=== PATIENT | female | born 1940 | race Caucasian/White ===

== ENCOUNTER 2019-06-28 10:46 | Outpatient (CLI) | payer MEDICARE, MEDICAID, SELFPAY ==
--- NOTE | 2019-06-28 11:09 | XRR_ITS ---
PROCEDURE INFORMATION: Exam: XR Cervical Spine, 3 Views Exam date and time: 06/28/2019 11:30 AM Age: 78 years old Clinical indication: Neck pain; Additional info: Chronic midline posterior neck pain TECHNIQUE: Imaging protocol: XR of the cervical spine, 3 views. Other technique: AP, lateral and AP open mouth and Fuchs odontoid views and a swimmer's lateral view of the cervical spine are submitted. COMPARISON: [facility] Cervical Spine 2-3 views 09/12/2018 11:16 AM FINDINGS: Vertebrae: Moderate right C3-C4 primary facet osteoarthritis. There is 4.8 mm anterolisthesis of C3 on C4 in the neutral position. Slight C4-C5 retrolisthesis. C4-C5, C5-6 and C6-7 degenerative disc disease with moderate spondylosis. Right C4-C5, C5-C6 and C6-C7 uncovertebral hypertrophy. Dental: Edentulous maxilla and mandible. Soft tissues: Normal. XR/XR cervical spine 3V* [id number] IMPRESSION: 1. Degenerative changes as above. 2. No acute cervical spinal bony abnormality identified.
== END 2019-06-28 10:47 | disposition home or self-care (01) ==
LOC: RAD 10:52
PROVIDERS: Family Provider Family Medicine; PCP Family Medicine; Visit Provider Family Medicine
DX: M47.892 Other spondylosis, cervical region (principal); M54.2 Cervicalgia; G89.29 Other chronic pain
CPT/HCPCS: 72040

== ENCOUNTER 2020-01-09 10:59 | Outpatient (CLI) | payer MEDICARE, MEDICAID, SELFPAY ==
--- NOTE | 2020-01-09 11:15 | XR_ITS ---
WS: [id number] LEFT HAND: 3 VIEW(S) TECHNIQUE: PA, oblique and lateral. HISTORY: LEFT HAND PAIN COMPARISON: None available. Severe interphalangeal joint space narrowing involving the proximal and distal joints. Hypertrophic b one formation and soft tissue inflammatory changes at the IP joints. Erosive and productive changes a t the IP joints. Severe narrowing and partial subluxation at the first carpometacarpal joint. No meta carpal head erosions. XR/XR hand LT min 3V* [id number] IMPRESSION: 1. Severe interphalangeal joint space narrowing with hypertrophic bone formati on. Consider erosive arthritis, advanced osteoarthritis and psoriasis. 2. Advanced osteoarthritis at the first carpometacarpal joint.
--- NOTE | 2020-01-09 11:16 | XR_ITS ---
WS: [id number] RIGHT FOOT: 3 VIEW(S) TECHNIQUE: AP, oblique and lateral. HISTORY: RIGHT FOOT PAIN COMPARISON: None available. No acute fracture or dislocation. Normal tarsal/metatarsal alignment. Mild widening between the second and third phalanges. No erosions . No soft tissue abnormality or bone destruction. XR/XR foot RT min 3V* [id number] IMPRESSION: No significant degenerative disease or arthritis.
== END 2020-01-09 11:00 | disposition home or self-care (01) ==
LOC: RADWPI 11:04
PROVIDERS: Family Provider Family Medicine; PCP Family Medicine; Visit Provider Registered Nurse
DX: M79.671 Pain in right foot (principal); M19.042 Primary osteoarthritis, left hand
CPT/HCPCS: 73130; 73630

== ENCOUNTER 2020-06-13 17:30 | Emergency (ER) | payer MEDICARE, MEDICAID, SELFPAY ==
[2020-06-13 17:38] VITALS: BP 177/76; PULSE 66; RESP 18; TEMP 36.4; O2SAT 97; BMI 26.2
--- NOTE | 2020-06-13 17:54 | XRR_ITS ---
PROCEDURE INFORMATION: Exam: XR Chest, 1 View Exam date and time: 06/13/2020 5:57 PM Age: 79 years old Clinical indication: Dyspnea; Additional info: Reduced breath sounds TECHNIQUE: Imaging protocol: XR of the chest Views: 1 view. COMPARISON: [facility] Chest 2 views 07/30/2018 11:26 AM FINDINGS: Lungs: Moderate emphysema. No focal consolidation. Pleural spaces: Unremarkable. No pleural effusion. No pneumothorax. Heart/Mediastinum: Unremarkable. No cardiomegaly. Vasculature: Mild atherosclerosis. Bones/joints: Unremarkable. XR/XR chest 1V portable [id number] IMPRESSION: 1. No acute pulmonary disease. 2. No significant change from prior.
--- NOTE | 2020-06-13 17:54 | CTR_ITS ---
PROCEDURE INFORMATION: Exam: CT Head Without Contrast Exam date and time: 06/13/2020 6:02 PM Age: 79 years old Clinical indication: Headache not specified; Patient HX: C/O BUITRAGO and neck pain worsening x 1 month; Additional info: Headache. H/o CVA TECHNIQUE: Imaging protocol: Computed tomography of the head without contrast. Radiation optimization: All CT scans at this facility use at least one of these dose optimization techniques: automated exposure control; mA and/or kV adjustment per patient size (includes targeted exams where dose is matched to clinical indication); or iterative reconstruction. COMPARISON: CT head wo con* [id number] 02/15/2014 1:08 PM RADIATION DOSE METRICS: Total DLP (mGy-cm): 750.25 FINDINGS: Brain: There is mild cerebral atrophy. There is mild diffuse heterogeneity of the white matter attenuation, consistent with chronic white matter ischemic changes. No intracranial hemorrhage. No focal intracranial mass. No midline shift of brain. No acute brain ischemia apparent. Singh matter and white matter interfaces are preserved. Low-attenuation periventricular white matter changes have progressed to a mild degree since comparison on 02/15/2014. Cerebral ventricles: No ventriculomegaly. Bones/joints: Unremarkable. No acute fracture. Paranasal sinuses: Visualized sinuses are unremarkable. No fluid levels. Mastoid air cells: Visualized mastoid air cells are well aerated. Orbital cavity: Bilateral lens replacements. Orbits are symmetric. Soft tissues: Unremarkable. CT/CT head wo con* [id number] IMPRESSION: 1. Negative for acute intracranial abnormality. 2. Age related senescent findings. Radiation Dose CTDIVOL = (mGy): DLP = 750.25 (mGy-cm)
--- NOTE | 2020-06-13 17:56 | ECG_ITS ---
[facility] Test Date: 2020-06-13 Pat Name: Migdalia Serrano Department: Room: Gender: Female Mold Cleaner: : 1940 Requested By: Frandy Ortiz Order Number: [id number] Jey MD: Skip Clarke M.D. Measurements Intervals [place] Rate: 64 P: 69 WI: 194 QRS: -53 QRSD: 128 T: 26 QT: 416 QTc: 429 Interpretive Statements SINUS RHYTHM RIGHT BUNDLE BRANCH BLOCK [120+ ms QRS DURATION, UPRIGHT V1, 40+ ms S IN I/aVL/V4/V5/V6] LEFT ANTERIOR FASCICULAR BLOCK [QRS AXIS <= -45, QR IN I, RS IN II] No previous ECG available for comparison Electronically Signed On 06-13-2020 19:27:11 SENIOR FINANCIAL ACCOUNTANT by Skip Clarke M.D. [id number]
--- NOTE | 2020-06-13 17:57 | CTR_ITS ---
PROCEDURE INFORMATION: Exam: CT Cervical Spine Without Contrast Exam date and time: 06/13/2020 6:02 PM Age: 79 years old Clinical indication: Patient HX: C/O BUITRAGO and neck pain worsening x 1 month TECHNIQUE: Imaging protocol: Computed tomography images of the cervical spine without contrast. Radiation optimization: All CT scans at this facility use at least one of these dose optimization techniques: automated exposure control; mA and/or kV adjustment per patient size (includes targeted exams where dose is matched to clinical indication); or iterative reconstruction. COMPARISON: CR XR cervical spine 3V* [id number] 06/28/2019 11:16 AM RADIATION DOSE METRICS: Total DLP (mGy-cm): 321.76 FINDINGS: Vertebrae: No fractures. Unremarkable cervical spine alignment.The cervical spine demonstrates moderate degenerative changes at multiple levels. Substantial multilevel disc disease noted. Vertebral endplate sclerosis and osteophytic spurring. Slight C3-C4 anterolisthesis of 2 mm secondary to facet joint arthritis. Soft tissues: Unremarkable. Vasculature: Small volume bilateral calcified atherosclerotic plaque formation of the carotid artery bulbs. Lungs: Moderate emphysema. CT/CT cervical spin wo con* [id number] IMPRESSION: Negative for acute cervical spine fracture. Radiation Dose CTDIVOL = (mGy): DLP = 321.76 (mGy-cm)
--- NOTE | 2020-06-13 18:04 | ED_ITS ---
HPI - Headache General: Chief Complaint: Headache Stated Complaint: high bp, headaches on back of head Time Seen by Provider: 06/13/20 17:47 History of Present Illness: HPI Narrative: The patient is a 79-year-old female with history of CVA and chronic back pain who comes to the ER complaining of a headache on and off for the past 2 weeks which is worse today. She says it is causing her blood pressure to be elevated and she took clonidine this morning with no improvement of her pressure. She is worried because she had a stroke with her blood pressure in the 170 systolic sometime ago and has right eye blindness from that. She takes losartan for blood pressure and clonidine as needed. She took her losartan this morning. Yesterday she had a procedure done at the chiropractor that was basically brazing the skin on her neck which is also bothering her. MD elicited complaint: headache Onset (ago): week(s) (2) Onset description: gradually Severity: moderate Quality & Timing: aching Exacerbating factors: other (Elevated blood pressure) Relieving factors: nothing Associated symptoms: Deny chest pain, confusion or rash Review of Systems General: Reports: 10 or more systems reviewed and unremarkable except in HPI and below Const: Denies: fatigue Eyes: Denies: change in vision, blurry vision or eye redness ENMT: Denies: throat pain, swelling of lips/tongue, ear or mastoid pain or nasal congestion Card: Denies: chest pain, palpitations, irregular heart rhythm, edema, dyspnea on exertion or orthopnea Resp: Denies: dyspnea, productive cough or non-productive cough GI: Denies: abdominal pain, diarrhea or GI cramping : Denies: flank pain, difficulty voiding, urinary frequency or urinary urgency Musc: Denies: neck pain, back pain, extremity pain, joint pain, joint redness, limited range of motion or muscle weakness Skin/Breast: Denies: rash, pruritus, erythema, skin pain or skin tenderness Neuro: Reports: headache(s); Denies: numbness in extremities, weakness in extremities, sensory changes, difficulty walking, dizziness, confusion or Slurred speech present Psych: Denies: anxiety or depression Endo: Denies: polyuria All/Imm: Denies: urticaria, throat swelling or tongue swelling PFSH ED PFSH: Medical History (Updated 06/13/20 @ 22:39 by Frandy Ortiz MD) CVA (cerebral vascular accident) Depression High cholesterol Hypertension Family History Other CAD (coronary artery disease) Cancer Clotting disorder Diabetes Hypertension Stroke Denies family history of Dementia Hyperlipidemia Psychiatric illness Chronic kidney disease (CKD) Suicide Anesthesia complication Bleeding disorder Family history of premature coronary artery disease Lung disease Social History Smoking and tobacco status: never smoked Alcohol intake: never Lives independently: Yes Household members: none Marital status: Legally Physical Exam Const: COMMON NORMALS: no acute distress, average body habitus, patient oriented x3, no limitations, healthy appearing, alert and well nourished GENERAL APPEARANCE: cooperative, comfortable, well kempt and well developed ORIENTATION/CONSCIOUSNESS: Yes awake, Yes oriented to person, Yes oriented to place and Yes oriented to time HENMT: COMMON NORMALS: normocephalic, external ears normal and Normal external nose present HEAD & SCALP: normal to inspection and normocephalic NOSE: Normal external nose present EXTERNAL EAR: Yes external ears normal MOUTH: Normal oral and palatal mucosa present THROAT: posterior oropharynx normal Eye: COMMON NORMALS: Equal, round and reactive pupils present and EOMs intact bilaterally GENERAL EYE: appearance normal, both eyes and all related structures PUPIL: Yes Equal, round and reactive pupils present Neck/C-Spine: COMMON NORMALS: full ROM, no lymphadenopathy, no meningeal signs and no JVD GENERAL: Yes normal visual inspection Lymph: LYMPHATIC: no lymphadenopathy noted Chest: COMMONS NORMALS: normal inspection of the chest and normal palpation of entire chest wall Resp: COMMON NORMALS: normal respiratory effort, No retractions, No use of accessory muscles, clear to auscultation bilaterally and percussion normal EFFORT & INSPECTION: Yes able to speak in complete sentences AUSCULTATION: clear to auscultation bilaterally PERCUSSION: percussion normal Cardio: COMMON NORMALS: no JVD, regular rate, regular rhythm, S1 normal heart sound present, S2 normal heart sound present and Peripheral pulses 2+ throughout RATE: regular rate RHYTHM: regular rhythm HEART SOUNDS: S1 normal heart sound present and S2 normal heart sound present PERIPHERAL PULSES: Peripheral pulses 2+ throughout GI: COMMON NORMALS: Normal to inspection, nondistended, normoactive bowel s ounds present, Soft to palpation, non-tender and no masses INSPECTION: Yes normal to inspection PALPATION: Yes Soft to palpation : COMMON NORMALS: Yes no CVA tenderness BLADDER/KIDNEY EXAM: Yes no CVA tenderness Back/Pelvis: COMMON NORMALS: no CVA tenderness, thoracic and lumbar spine normal to inspection, no thoracic nor lumbar tenderness and thoraco-lumbar ROM normal Extremity: COMMON NORMALS: normal to inspection, full ROM, capillary refill normal, no joint enlargement and no pedal edema GENERAL: Yes normal exam except as noted Neuro: COMMON NORMALS: patient oriented x3, CN's II-XII intact bilaterally, moves all extremities, no focal motor deficits, no sensory deficits noted and gait normal SENSORIUM/ORIENTATION: Yes alert, Yes oriented to person, Yes oriented to place and Yes oriented to time MENINGEAL SIGNS: Yes no meningeal signs Psych: COMMON NORMALS: mental status grossly normal, Normal thought process pr esent, cooperative, normal affect and speech normal APPEARANCE: Yes well kempt ATTITUDE: Yes calm SPEECH: Yes normal speech THOUGHT PROCESS: Normal thought process present Skin: COMMON NORMALS: no rashes or lesions noted NARRATIVE SKIN EXAM: Slight erythema to the skin of the cervical spine where she had a procedure done at her chiropractors yesterday basically abrazing the skin with a piece of wood. GENERAL SKIN EXAM: no rashes or lesions noted Course Vital Signs: Vital signs: Vital Signs Temperature 97.6 F 06/13/20 17:38 Pulse Rate 58 L 06/13/20 22:00 Respiratory Rate 15 06/13/20 22:00 Blood Pressure 156/59 06/13/20 22:00 Pulse Oximetry 96 06/13/20 22:00 MDM - Headache MDM Narrative: Medical decision making narrative: The patient takes only losartan for her blood pressure and clonidine as needed. This is clearly not enough medication for her. Her heart rate is relatively low so I started with hydralazine which gave her flushing a known side effect. I also gave her some clonidine and amlodipine. This lowered her blood pressure with good effect and resolved her headache. Recommended taking the amlodipine daily and checking her blood pressures at home and following up with her primary care physician Monday. Return to the ER with worsening symptoms, return of headache, or any other worrisome symptoms. Lab Data: Labs: Lab Results 06/13/20 06/13/20 06/13/20 Range/Units 18:00 18:00 18:00 WBC 5.3 (4.0-10.0) 10^3/ uL RBC 3.77 L (4.1-5.3) 10^6/u L Hgb 11.4 L (11.5-15.3) g/dL Hct 35.3 L (37.0-47.0) % MCV 93.6 (81-99) fL MCH 30.2 (28.0-34.0) pg MCHC 32.3 (30.0-36.0) g/dL RDW 14.3 (12.1-15.1) % Plt Count 168 (130-400) 10^3/c mm MPV 10.7 H (7.4-10.4) fL Neut % (Auto) 56.3 % Lymph % (Auto) 33.3 % [place] % (Auto) 7.0 % Eos % (Auto) 2.1 % Baso % (Auto) 1.1 % Neut # (Auto) 3.00 (1.8-7.7) 10^3/u L Lymph # (Auto) 1.8 (0.8-4.8) 10^3/u L [place] # (Auto) 0.4 (0.2-0.9) 10^3/u L Eos # (Auto) 0.1 (0.0-0.8) 10^3/u L Baso # (Auto) 0.1 (0.0-0.1) 10^3/u L Nucleated RBC % (a uto) 0 % Nucleated RBCs # 0.0 /100WBC Sodium 138 (136-145) mmol/L Potassium 4.0 (3.5-5.1) mmol/L Chloride 103 (98-107) mmol/L Carbon Dioxide 27 (22-29) mmol/L Anion Gap 12.0 (5-19) BUN 24 H (8-23) mg/dL Creatinine 0.9 (0.5-0.9) mg/dL GFR Calculation Not Reportable Glucose 109 (65-115) mg/dL Calculated Osmolal ity 291 (285-295) mOsm/k g Calcium 9.7 (8.5-10.5) mg/dL Total Bilirubin 0.2 (0.15-1.2) mg/dL AST 16 (0-32) U/L ALT 11 (0-33) U/L Alkaline Phosphata se 45 (35-105) IU/L Troponin T Baselin e 11 H (0-10) ng/L Troponin T 120 Min dilia (0-10) ng/L Delta Troponin T (0-10) ABS# NT-Pro-B Natriuret Pep (0-450) pg/mL Total Protein 6.5 L (6.6-8.7) g/dL Albumin 4.5 (3.5-5.2) g/dL Globulin 2.0 (1.3-4.6) g/dL Urine Color (Yellow) Urine Appearance (CLEAR) Urine pH (5-7) Ur Specific Gravit y (1.005-1.030) Urine Protein (Negative) Urine Glucose (UA) (Normal) Urine Ketones (Negative) Urine Blood (Negative) Urine Nitrate (Negative) Urine Bilirubin (Negative) Urine Urobilinogen (Negative) mg/dL Ur Leukocyte Yajaira ase (Negative) 06/13/20 06/13/20 06/13/20 Range/Units 18:00 18:00 20:10 WBC (4.0-10.0) 10^3/ uL RBC (4.1-5.3) 10^6/u L Hgb (11.5-15.3) g/dL Hct (37.0-47.0) % MCV (81-99) fL MCH (28.0-34.0) pg MCHC (30.0-36.0) g/dL RDW (12.1-15.1) % Plt Count (130-400) 10^3/c mm MPV (7.4-10.4) fL Neut % (Auto) % Lymph % (Auto) % [place] % (Auto) % Eos % (Auto) % Baso % (Auto) % Neut # (Auto) (1.8-7.7) 10^3/u L Lymph # (Auto) (0.8-4.8) 10^3/u L [place] # (Auto) (0.2-0.9) 10^3/u L Eos # (Auto) (0.0-0.8) 10^3/u L Baso # (Auto) (0.0-0.1) 10^3/u L Nucleated RBC % (a uto) % Nucleated RBCs # /100WBC Sodium (136-145) mmol/L Potassium (3.5-5.1) mmol/L Chloride (98-107) mmol/L Carbon Dioxide (22-29) mmol/L Anion Gap (5-19) BUN (8-23) mg/dL Creatinine (0.5-0.9) mg/dL GFR Calculation Glucose (65-115) mg/dL Calculated Osmolal ity (285-295) mOsm/k g Calcium (8.5-10.5) mg/dL Total Bilirubin (0.15-1.2) mg/dL AST (0-32) U/L ALT (0-33) U/L Alkaline Phosphata se (35-105) IU/L Troponin T Baselin e (0-10) ng/L Troponin T 120 Min dilia 9.90 (0-10) ng/L Delta Troponin T -1.10 L (0-10) ABS# NT-Pro-B Natriuret Pep 546 H (0-450) pg/mL Total Protein (6.6-8.7) g/dL Albumin (3.5-5.2) g/dL Globulin (1.3-4.6) g/dL Urine Color Yellow (Yellow) Urine Appearance Clear (CLEAR) Urine pH 5 (5-7) Ur Specific Gravit y 1.020 (1.005-1.030) Urine Protein Neg (Negative) Urine Glucose (UA) Norm (Normal) Urine Ketones Negative (Negative) Urine Blood Neg (Negative) Urine Nitrate Negative (Negative) Urine Bilirubin Neg (Negative) Urine Urobilinogen Norm (Negative) mg/dL Ur Leukocyte Yajaira ase Negative (Negative) Discharge Plan Discharge Patient Disposition: Home Clinical Impression: Headache, Hypertension, uncontrolled Condition: Stable Prescriptions: New amlodipine 10 mg tablet 10 mg PO DAILY Qty: 20 RF: 0 No Action estradiol 1 mg tablet 1 mg PO DAILY RF: 0 losartan 100 mg tablet 100 mg PO DAILY RF: 0 sertraline [Zoloft] 100 mg tablet 100 mg PO DAILY RF: 0 simvastatin 5 mg tablet 5 mg PO DAILY RF: 0 levothyroxine 75 mcg capsule 75 mcg PO DAILY RF: 0 montelukast [Singulair] 10 mg tablet 10 mg PO DAILY RF: 0 aspirin 81 mg tablet,delayed release (DR/EC) 81 mg PO DAILY RF: 0 ferrous sulfate 250 mg (50 mg iron) tablet extended release 250 mg PO DAILY RF: 0 Discharge Orders: Discharge ED (Routine); Ordered 06/13/20 Ordered By: Frandy Ortiz Referrals: Ching Varma DO [Primary Care Provider] - Discharge Diet: Advance as tolerated Discharge Activity: Resume usual activity Patient Instructions: Acute Headache (ED), Hypertensive Crisis (ED), Hyp ertension (ED), Opioid Safety Activity Restrictions/Additional Instructions: You have elevated blood pressure which is likely the cause of your headaches. We have given you a couple blood pressure medicines to reduce your pressure and your headache has resolved. Please take the amlodipine daily and follow-up with your primary care doctor Monday to discuss further and possibly add another medicine. Please check your blood pressure multiple times a day and write them down. Bring that blood pressure diary to your doctor. Return to the ER with worsening symptoms or headaches or any other worrisome symptoms. Coding Level of Care Code ED Neonatal Specialist for José Manuel Fwfelipe Exam Comprehensive
[2020-06-13] MEDS: hyDRALAzine 20 mg/mL INJ 1 mL 10 MG IVP (18:06)
[2020-06-13 18:22] VITALS: BP 178/88; PULSE 68; RESP 18; O2SAT 98
[2020-06-13 18:24] LABS: Add Urine Microscopic? NO
[2020-06-13 18:35] LABS: Basophils # 0.1 10^3/uL (0.0-0.1); Basophils % 1.1 %; Eosinophils # 0.1 10^3/uL (0.0-0.8); Eosinophils % 2.1 %; Hematocrit 35.3 % (37.0-47.0); Hemoglobin 11.4 g/dL (11.5-15.3); Lymphocytes # 1.8 10^3/uL (0.8-4.8); Lymphocytes % 33.3 %; Mean Corpuscular HGB Conc 32.3 g/dL (30.0-36.0); Mean Corpuscular Hemoglobin 30.2 pg (28.0-34.0); Mean Corpuscular Volume 93.6 fL (81-99); Mean Platelet Volume 10.7 fL (7.4-10.4); Monocytes # 0.4 10^3/uL (0.2-0.9); Neutrophils % 56.3 %; Nucleated Red Blood Cells % 0 %; Platelet Count 168 10^3/cmm (130-400); Red Blood Count 3.77 10^6/uL (4.1-5.3); Red Cell Distribution Width 14.3 % (12.1-15.1); White Blood Count 5.3 10^3/uL (4.0-10.0)
[2020-06-13 18:37] LABS: Bilirubin Urine Neg (Negative); Blood Urine Neg (Negative); Glucose Urine UA Norm (Normal); Ketones Urine Negative (Negative); Leukocyte Esterase Urine Negative (Negative); Nitrate Urine Negative (Negative); Protein Urine Neg (Negative); Urine Appearance Clear (CLEAR); Urine Color Yellow (Yellow); Urobilinogen Urine Norm (Negative); pH Urine 5 (5-7)
[2020-06-13] MEDS: acetaminophen 325 mg Tablet 650 MG PO (18:46)
[2020-06-13 18:55] LABS: Alanine Aminotransferase 11 U/L (0-33); Albumin Level 4.5 g/dL (3.5-5.2); Alkaline Phosphatase 45 IU/L (35-105); Aspartate Amino Transferase 16 U/L (0-32); Blood Urea Nitrogen 24 mg/dL (8-23); Calcium 9.7 mg/dL (8.5-10.5); Carbon Dioxide 27 mmol/L (22-29); Chloride 103 mmol/L (98-107); Creatinine Clr Calc Pharmacy 50.0626; Glucose 109 mg/dL (65-115); Osmolality Calculated 291 mOsm/kg (285-295); Sodium 138 mmol/L (136-145); Total Bilirubin 0.2 mg/dL (0.15-1.2); Total Protein 6.5 g/dL (6.6-8.7); Troponin(5th) Baseline 11 ng/L (0-10)
[2020-06-13 20:03] VITALS: BP 164/64; PULSE 60; RESP 13; O2SAT 97
[2020-06-13] MEDS: amlodipine 10 mg Tablet PO (20:35)
[2020-06-13 20:39] VITALS: BP 184/75
[2020-06-13] MEDS: cloNIDine 0.1 mg Tablet PO (20:39)
[2020-06-13] MEDS: labetalol 5 mg/mL SDV 20mL 10 MG IVP (21:54)
[2020-06-13] MEDS: morphine 4 mg/mL SDV 1 mL 2 MG IVP (21:55)
[2020-06-13 22:00] VITALS: BP 156/59; PULSE 58; RESP 15; O2SAT 96
[2020-06-13 22:11] LABS: NT Pro B Type Natriuretic Pept 546 pg/mL (0-450)
[2020-06-13 22:40] VITALS: BP 163/61; PULSE 57; RESP 13; O2SAT 95
== END 2020-06-13 22:46 | disposition home or self-care (01) ==
PROVIDERS: Emergency Provider Family Medicine; PCP Family Medicine
DX: R51.9 Headache, unspecified (principal); I10 Essential (primary) hypertension; Z79.82 Long term (current) use of aspirin; Z86.73 Personal history of transient ischemic attack (TIA), and cerebral infarction without residual deficits
CPT/HCPCS: 36415; 70450; 71045; 72125; 80053; 81003; 83880; 84484; 85025; 93005; 96374; 96375; 99284; J0360; J2270; J3490

== ENCOUNTER 2020-06-18 12:44 | Observation (INO) | payer MEDICARE, MEDICAID, SELFPAY ==
[2020-06-18] VITALS (59 sets, daily range): BP systolic 112–174; BP diastolic 57–84; PULSE 57–97; RESP 7–24; TEMP 36.4; O2SAT 92–100; BMI 20.5
--- NOTE | 2020-06-18 13:00 | CT_ITS ---
WS: [id number] CT HEAD NONCONTRAST HISTORY: asphasia TECHNIQUE: Contiguous axial imaging performed through the brain in 2.5 mm imaging. Bone and soft tiss ue windows. Sagittal and coronal reformats reviewed. All CT scans at [facility] use at ast one of these dose optimization techniques: automated exposure control; mA and/or kV adjustment pe r patient size (includes targeted exams where dose is matched to clinical indication); or iterative r econstruction. DLP: 752.81 mGy.cm COMPARISON: 06/13/2020 No acute intracranial hemorrhage, midline shift or mass effect. Mild atrophy and mild chronic microvascular ischemic disease. Ventricles: Normal size with no hydrocephalus. Paranasal sinuses: As visualized are clear. Mastoid air cells: Well pneumatized. Calvarium and scalp: Skull is intact with no soft tissue edema or swelling. CT/CT head wo con* [id number] IMPRESSION: 1. No acute intracranial hemorrhage or edema. 2. Mild atrophy and mild chronic microvascular ischemic disease.
--- NOTE | 2020-06-18 13:00 | CT_ITS ---
WS: [id number] CT ANGIOGRAM CEREBRAL AND CAROTID ARTERIES HISTORY: stroke, aphasia TECHNIQUE: CT angiogram is performed of the carotid and cerebral arteries. During arterial injection imaging is obtained from the skull vertex to the aortic arch in 1.25 mm imaging. Coronal and sagittal reformats are submitted. Additional multi planar reformats of the carotid and cerebral arteries are submitted, MIP imaging also reviewed. NASCET criteria utilized. All CT scans at [facility] use at least one of these dose optimization techniques: automated exposure control; mA and/or kV ad justment per patient size (includes targeted exams where dose is matched to clinical indication); or iterative reconstruction. CONTRAST: Omnipaque 350; 95 mL IV. DLP: 1560.29 mGy.cm COMPARISON: 06/18/2020 Carotid Angiogram: Right carotid: Common carotid artery: Arises normally from the innominate artery. No significant plaque or stenosis. Internal carotid artery: No plaque or stenosis. External carotid artery: Patent. Left carotid: Common carotid artery: Arises normally from the aorta. No significant plaque or stenosis. Internal carotid artery: No plaque or stenosis. External carotid artery: Patent. Right vertebral artery: Unremarkable. Left vertebral artery: Small amount calcium at the origin of the LEFT vertebral artery. Mild stenosis at the origin. Subclavian arteries: No stenosis or significant abnormality. Upper thorax: Normal. Thyroid gland: Normal. Osseous structures: Moderate spondylitic changes in the mid cervical spine. No bone destruction. CEREBRAL ANGIOGRAM: Intracranial vertebral arteries: Normal with no significant atherosclerosis. Basilar artery: No significant stenosis or occlusion. No aneurysm. Intracranial Internal carotid arteries: Moderate calcified plaque through the cavernous and supraclin oid carotid arteries. No high-grade stenosis. Middle cerebral arteries: Normal. Anterior cerebral arteries and ACOM: Normal. Posterior cerebral arteries and PCOM's: Normal. Dural venous sinuses are normally enhancing. Mastoid air cells: Normal. Paranasal sinuses: Normal. Calvarium: Normal. CT/CT angio headneck* [id number] IMPRESSION: 1. No significant extracranial carotid artery stenosis. 2. Mild intracranial carotid artery plaque without stenosis. 3. No aneurysms or occlusions within the [place]. 4. Mild stenosis involving the origin of the LEFT vertebral artery.
--- NOTE | 2020-06-18 13:03 | XR_ITS ---
WS: [id number] PORTABLE CHEST HISTORY: stroke COMPARISON: 06/13/2020 Lungs are clear and well expanded. No pleural effusion or pneumothorax. Cardiac size: Normal. Mediastinum/Aorta: Normal mediastinum. No osseous abnormality seen. XR/XR chest 1V portable [id number] IMPRESSION: Unremarkable portable chest.
--- NOTE | 2020-06-18 13:03 | ECG_ITS ---
[facility] Test Date: 2020-06-18 Pat Name: Migdalia Serrano Department: Room: Gender: Female Assistant Director Of Security: : 1940 Requested By: Mia Frazier Order Number: [id number] Reading MD: ALLEGRA STEWART Measurements Intervals [place] Rate: 73 P: 81 VA: 198 QRS: -59 QRSD: 125 T: 52 QT: 405 QTc: 448 Interpretive Statements SINUS RHYTHM INDETERMINATE AXIS RIGHT BUNDLE BRANCH BLOCK [120+ ms QRS DURATION, UPRIGHT V1, 40+ ms S IN I/aVL/V4/V5/V6] Compared to ECG 06/13/2020 18:17:00 Indeterminate axis now present Left anterior fascicular block no longer present Electronically Signed On 06-18-2020 18:16:58 MINIATURE SET CONSTRUCTOR by ALLEGRA STEWART [id number]
[2020-06-18 13:17] LABS: Basophils # 0.1 10^3/uL (0.0-0.1); Basophils % 1.1 %; Eosinophils # 0.1 10^3/uL (0.0-0.8); Eosinophils % 2.1 %; Hematocrit 38.2 % (37.0-47.0); Hemoglobin 12.5 g/dL (11.5-15.3); Lymphocytes # 1.6 10^3/uL (0.8-4.8); Lymphocytes % 34.4 %; Mean Corpuscular HGB Conc 32.7 g/dL (30.0-36.0); Mean Corpuscular Hemoglobin 30.4 pg (28.0-34.0); Mean Corpuscular Volume 92.9 fL (81-99); Mean Platelet Volume 10.4 fL (7.4-10.4); Monocytes # 0.4 10^3/uL (0.2-0.9); Monocytes % 7.9 %; Neutrophils # 2.56 10^3/uL (1.8-7.7); Neutrophils % 54.3 %; Nucleated Red Blood Cells % 0 %; Platelet Count 168 10^3/cmm (130-400); Red Blood Count 4.11 10^6/uL (4.1-5.3); Red Cell Distribution Width 13.8 % (12.1-15.1); White Blood Count 4.7 10^3/uL (4.0-10.0)
[2020-06-18] MEDS: iohexol 350 mg/mL 100 mL Btl IV (13:23)
--- NOTE | 2020-06-18 13:31 | P.PNCC_ITS ---
Stroke Alert Activation ED Arrival Date: 06/18/20 Last Known Normal/at Baseline: 3-4 hours ago (Unknown) Other Last Known Well Infomation: I was called stat for stroke team by Dr. Grace. This 79-year-old woman presented with right homonymous hemianopsia and speaking word salad. She could not say her name, her birthdate and any attempt she made to answer questions consisted of disjointed words. This was observed by Dr. Grace and the triage nurse. She was sent stat to CT of the head and I came directly to the emergency department and examined her briefly as she was going into the scanner. I examined her more thoroughly upon completion of her CT while the techs readied themselves to do CT angiogram (since time of onset was not known). She was able to tell me her name and her birthdate, though it was somewhat effortful. She guesses the month is May. She complained repeatedly why cannot I remember . She told me that she does not normally have memory problems and spoke that in a full sentence. She has a right homonymous hemianopsia. She has full eye movements. She had no drift of the extended arms for count of 10 and was able to lift each of her feet in the air and hold them up for 10 seconds. She had no sign of neglect. She had no ataxia. Her CT scan of the head shows diffuse white matter changes unchanged compared with several days ago when she was seen here previously for hypertension and headache. CT angiogram shows no sign of intracranial occlusion pending the radiologist report. With the luxury of time I was able to review her emergency department documentation from 06/13/2020 when she complained of 2 weeks of headaches and elevated blood pressure. At that time she mentioned that she had a stroke? And has right eye blindness from that (I presume he means right homonymous hemianopsia). Her daughter called the ambulance and demanded that this patient be transferred to [place] by air VAC which was not possible. She is on aspirin 81 mg daily and simvastatin 5 mg daily. Diagnosis is TIA and headache out of control. The patient's daughter arrived at 1:40 or so and she had a chance to interview me. She reveals that the patient was normal at 8:00 this morning when she wrote a bunch of notes about her blood pressure and her medication. Someone called the house at 10 AM and Ms. Lozano was confused. . Daughter Arely says that Ms. Lozano has never had a problem with speech it was always confusion. . Mr. Guillermo says that she is still having problems with word searching. 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) Facial Palsy - 4: Normal Motor Arm Right - 5: No Drift Motor Arm Left - 5: No Drift Motor Leg Right - 6: No Drift Motor Leg Left - 6: No Drift Limb Ataxia - 7: Absent Sensory - 8: Normal Best Language - 9: Mild/Moderate Aphasia Dysarthia - 10: Normal Extinction And Inattention - 11: 0 Score: Total Score: 3 Critical Care Time Critical Care Time: 30 - 74 mins A&P Assessment and plan (1) TIA (transient ischemic attack): 79-year-old woman who had a 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 Her deficit is improving rapidly and she is able to communicate. There is no indication for TPA at this point. Plan discussed with the patient, her daughter and Dr. Grace. Very reasonable to add Plavix to her medication regimen. I would be permissive with her blood pressure since she had a TIA. Reasonable to check a sed rate because of new headache. Consider a small dose of beta-messi such as propranolol 10 mg twice daily for her headaches. Thanks for allowing me to participate in her care. 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
[2020-06-18 13:38] LABS: INR 1.01 (0.8-1.2)
[2020-06-18 13:39] LABS: Partial Thromboplastin Time 25.7 SECONDS (23.9-36.7)
[2020-06-18 13:42] LABS: Alanine Aminotransferase 16 U/L (0-33); Albumin Level 4.6 g/dL (3.5-5.2); Alkaline Phosphatase 45 IU/L (35-105); Anion Gap 14.2 (5-19); Aspartate Amino Transferase 18 U/L (0-32); Blood Urea Nitrogen 21 mg/dL (8-23); Calcium 9.6 mg/dL (8.5-10.5); Carbon Dioxide 25 mmol/L (22-29); Chloride 104 mmol/L (98-107); Globulin 2.9 g/dL (1.3-4.6); Glucose 115 mg/dL (65-115); Osmolality Calculated 292 mOsm/kg (285-295); Potassium 4.2 mmol/L (3.5-5.1); Sodium 139 mmol/L (136-145); Total Bilirubin 0.3 mg/dL (0.15-1.2); Total Protein 7.5 g/dL (6.6-8.7)
[2020-06-18 13:47] LABS: Add Urine Microscopic? NO
[2020-06-18 13:57] LABS: Bilirubin Urine Neg (Negative); Blood Urine Neg (Negative); Glucose Urine UA Norm (Normal); Ketones Urine Negative (Negative); Leukocyte Esterase Urine Negative (Negative); Nitrate Urine Negative (Negative); Protein Urine Neg (Negative); Specific Gravity, Urine 1.005 (1.005-1.030); Urine Appearance Clear (CLEAR); Urine Color Yellow (Yellow); Urobilinogen Urine Norm (Negative); pH Urine 7 (5-7)
[2020-06-18 14:07] LABS: Amphetamines Screen Urine Negative (Negative); Barbiturates Screen Urine Negative (Negative); Benzodiazepines Screen Urine Negative (Negative); Cocaine Screen Urine Negative (Negative); Opiate Screen Urine Negative (Negative); PCP Screen Urine Negative (Negative); THC Screen Urine Negative (Negative)
--- NOTE | 2020-06-18 14:28 | PC.NURSE ---
Daughter at bedside, both daughter and patient state that he head is hurting. rating a 6 out of 10. Nurse and doctor have been made aware.
[2020-06-18] MEDS: ondansetron 2 mg/ML SDV 2 mL 4 MG IVP (14:49)
[2020-06-18] MEDS: morphine 4 mg/mL SDV 1 mL IVP (14:49)
[2020-06-18] MEDS: acetaminophen 500 mg Tablet 1000 MG PO (15:52)
[2020-06-18] MEDS: clopidogrel 75 mg Tablet PO (15:53)
--- NOTE | 2020-06-18 17:05 | W.ED.NEUROSD ---
HPI - Neuro Symptoms/Deficit General: Chief Complaint: Neuro Symptoms/Deficit Stated Complaint: BUITRAGO/HTN Time Seen by Provider: 06/18/20 13:00 History of Present Illness: HPI Narrative: This patient is a 79 year old female presenting by EMS with trouble speaking. On my assessment she is awake, and clearly aware of her speech difficulties. I asked her name and she was able to say her first name - but then stopped and said a whole list of other names - which did not include her actual last night. I asked if she was here due to her trouble speaking and she said a garbble of words that did not make sense. Each question got the same response and she was clearly aware and frustrated by her inability to tell me what she wanted to say. initially I was not able to find out when her symptoms started or other history - but her daughter did come in and was able to tell us that she spoke to the patient on the phone at 8 this morning and she was fine - and then she got a call from someone who had been on the phone with the patient at 10:30 and they expressed concern about her speech and confusion. The daughter was also able to tell me that she has been having bad headaches and fluctuating blood pressure over the past two weeks - but had not had the speech issue before today. She also has had a prior stroke about 2 years ago which left her with right sided hemianopsia. The aptient was seen here 06/13 with high blood pressure and headache, and was evaluated and discharged. Her daughter then took her to [facility] where she had a CTA, MR and an ultrasound which were unremarkable per daughter. She was started back on amlodipine - which she had taken in the past - and clonidine PRN. Her BP had still been high and she had still been having headaches. Last Observed Normal: 08:00 Timing confirmed by: family member Location: speech History of same: No Severity: severe Relieving factors: none Exacerbating factors: none Context: other (unknown) Associated symptoms: Reports headache(s); Deny nausea, short of breath, syncope or vertigo Review of Systems General: Reports: ROS unobtainable due to medical condition Card: Denies: syncope GI: Denies: nausea Neuro: Reports: headache(s); Denies: vertigo [facility] ED PFSH: Medical History CVA (cerebral vascular accident) Depression High cholesterol Hypertension Family History Other CAD (coronary artery disease) Cancer Clotting disorder Diabetes Hypertension Stroke Denies family history of Dementia Hyperlipidemia Psychiatric illness Chronic kidney disease (CKD) Suicide Anesthesia complication Bleeding disorder Family history of premature coronary artery disease Lung disease Social History Smoking and tobacco status: never smoked Alcohol intake: never Lives independently: Yes Household members: none Marital status: Legally NIH stroke score NIHSS: Level Of Consciousness - 1a: 0 Level Of Consciousness Questions - 1b: Neither Correct Level Of Consciousness Commands - 1c: Both Correct Best Gaze - 2: Normal Visual Bentley - 3: Complete Hemianopia Facial Palsy - 4: Normal Motor Arm Right - 5: No Drift Motor Arm Left - 5: No Drift Motor Leg Right - 6: No Drift Motor Leg Left - 6: No Drift Limb Ataxia - 7: Absent Sensory - 8: Normal Best Language - 9: Severe Aphasia Dysarthia - 10: Normal Extinction And Inattention - 11: 0 Score: Total Score: 6 Physical Exam Const: COMMON NORMALS: alert EXAM LIMITATIONS: other limitations (aphasia) GENERAL APPEARANCE: cooperative, in distress and anxious NUTRITIONAL APPEARANCE: thin ORIENTATION/CONSCIOUSNESS: Yes awake OTHER: aphasia complicates orientation questions - she seems aware of the situation HENMT: HEAD & SCALP: normal to inspection FACE & SINUS: normal facial exam Eye: COMMON NORMALS: Equal, round and reactive pupils present GENERAL EYE: appearance normal, both eyes and all related structures VISUAL BENTLEY: Yes peripheral vision loss and Yes right visual field cut PUPIL: Yes Equal, round and reactive pupils present Neck/C-Spine: COMMON NORMALS: supple, no meningeal signs and no JVD Chest: COMMONS NORMALS: normal inspection of the chest Resp: COMMON NORMALS: normal respiratory effort, No use of accessory muscles and clear to auscultation bilaterally AUSCULTATION: clear to auscultation bilaterally Cardio: COMMON NORMALS: no JVD, regular rate, regular rhythm and No murmurs present (Cardio) RATE: regular rate RHYTHM: regular rhythm GI: COMMON NORMALS: Normal to inspection, nondistended, normoactive bowel sounds present, Soft to palpation and non-tender INSPECTION: Yes normal to inspection AUSCULTATION: Yes normoactive bowel sounds PALPATION: Yes Soft to palpation Back/Pelvis: COMMON NORMALS: thoracic and lumbar spine normal to inspection Extremity: COMMON NORMALS: normal to inspection Neuro: SENSORIUM/ORIENTATION: Yes alert MENINGEAL SIGNS: Yes no meningeal signs CRANIAL NERVES: Yes CN normal except as noted COORDINATION/BALANCE: [id number] test normal SPEECH: expressive aphasia MOTOR EXAM: 5/5 motor strength present throughout COORDINATION: [id number] test normal Psych: COMMON NORMALS: mental status grossly normal, cooperative and normal affect Skin: COMMON NORMALS: no rashes or lesions noted and turgor normal GENERAL SKIN EXAM: no rashes or lesions noted and turgor normal Course ED course: Patient was made a stroke alert and sent for CT and CTA - as I was not aware that she had recently had a CTA at [facility]. Those tests were normal other than some mild narrowing of the left vertebral artery and the mild intracranial plaque without stenosis in the carotid. Dr. Escalera saw the patient in the ED and when she saw her, the aphasia had resolved and the BP was normalizing. Her BP remained in the 130 - 150 range for most of the ED stay - and she continued to have a severe headache which did not really improve with meds. She had intermittent episodes of aphasia as well. I discussed the options for admission here, transfer to [facility] and an option that I did not recommend for outpatient management. I am concerned with the continued symptoms with out an obvious cause. Dr. Escalera did suggest adding plavix. Patient preferred to be admitted here - and DR. Adams accepted her to the first floor for close monitoring. He also asked that I order a Clonidine here for a BP in the 150's - which I did. Consultations: Consultation #1: Dr. Escalera Vital Signs: Vital signs: Vital Signs Temperature 97.6 F 06/18/20 12:46 Pulse Rate 64 06/18/20 16:30 Respiratory Rate 14 06/18/20 16:30 Blood Pressure 155/71 06/18/20 16:30 Pulse Oximetry 97 06/18/20 16:30 MDM - Neuro Symptoms/Deficit MDM Narrative: Medical decision making narrative: CVA, TIA, atypical seizure, complicated migraine, PRES. Stat CTs, neuro consult. Admit for further work up. Lab Data: Labs: Lab Results 06/18/20 06/18/20 06/18/20 Range/Units 13:04 13:04 13:04 WBC 4.7 (4.0-10.0) 10^3/ uL RBC 4.11 (4.1-5.3) 10^6/u L Hgb 12.5 (11.5-15.3) g/dL Hct 38.2 (37.0-47.0) % MCV 92.9 (81-99) fL MCH 30.4 (28.0-34.0) pg MCHC 32.7 (30.0-36.0) g/dL RDW 13.8 (12.1-15.1) % Plt Count 168 (130-400) 10^3/c mm MPV 10.4 (7.4-10.4) fL Neut % (Auto) 54.3 % Lymph % (Auto) 34.4 % [place] % (Auto) 7.9 % Eos % (Auto) 2.1 % Baso % (Auto) 1.1 % Neut # (Auto) 2.56 (1.8-7.7) 10^3/u L Lymph # (Auto) 1.6 (0.8-4.8) 10^3/u L [place] # (Auto) 0.4 (0.2-0.9) 10^3/u L Eos # (Auto) 0.1 (0.0-0.8) 10^3/u L Baso # (Auto) 0.1 (0.0-0.1) 10^3/u L Nucleated RBC % (a uto) 0 % Nucleated RBCs # 0.0 /100WBC PT 13.60 (12.1-14.9) SECO NDS INR 1.01 (0.8-1.2) APTT 25.7 (23.9-36.7) SECO NDS Sodium 139 (136-145) mmol/L Potassium 4.2 (3.5-5.1) mmol/L Chloride 104 (98-107) mmol/L Carbon Dioxide 25 (22-29) mmol/L Anion Gap 14.2 (5-19) BUN 21 (8-23) mg/dL Creatinine 1.0 H (0.5-0.9) mg/dL GFR Calculation Not Reportable Glucose 115 (65-115) mg/dL Calculated Osmolal ity 292 (285-295) mOsm/k g Calcium 9.6 (8.5-10.5) mg/dL Total Bilirubin 0.3 (0.15-1.2) mg/dL AST 18 (0-32) U/L ALT 16 (0-33) U/L Alkaline Phosphata se 45 (35-105) IU/L Total Protein 7.5 (6.6-8.7) g/dL Albumin 4.6 (3.5-5.2) g/dL Globulin 2.9 (1.3-4.6) g/dL Urine Color (Yellow) Urine Appearance (CLEAR) Urine pH (5-7) Ur Specific Gravit y (1.005-1.030) Urine Protein (Negative) Urine Glucose (UA) (Normal) Urine Ketones (Negative) Urine Blood (Negative) Urine Nitrate (Negative) Urine Bilirubin (Negative) Urine Urobilinogen (Negative) mg/dL Ur Leukocyte Yajaira ase (Negative) Urine Opiates Scre en (Negative) ng/mL Ur Barbiturates Sc reen (Negative) ng/mL Ur Phencyclidine S crn (Negative) ng/mL Ur Amphetamines Sc reen (Negative) ng/mL U Benzodiazepines Scrn (Negative) ng/mL Urine Cocaine Scre en (Negative) ng/mL U Marijuana (THC) Screen (Negative) ng/mL 06/18/20 06/18/20 Range/Units 13:35 13:35 WBC (4.0-10.0) 10^3/ uL RBC (4.1-5.3) 10^6/u L Hgb (11.5-15.3) g/dL Hct (37.0-47.0) % MCV (81-99) fL MCH (28.0-34.0) pg MCHC (30.0-36.0) g/dL RDW (12.1-15.1) % Plt Count (130-400) 10^3/c mm MPV (7.4-10.4) fL Neut % (Auto) % Lymph % (Auto) % [place] % (Auto) % Eos % (Auto) % Baso % (Auto) % Neut # (Auto) (1.8-7.7) 10^3/u L Lymph # (Auto) (0.8-4.8) 10^3/u L [place] # (Auto) (0.2-0.9) 10^3/u L Eos # (Auto) (0.0-0.8) 10^3/u L Baso # (Auto) (0.0-0.1) 10^3/u L Nucleated RBC % (a uto) % Nucleated RBCs # /100WBC PT (12.1-14.9) SECO NDS INR (0.8-1.2) APTT (23.9-36.7) SECO NDS Sodium (136-145) mmol/L Potassium (3.5-5.1) mmol/L Chloride (98-107) mmol/L Carbon Dioxide (22-29) mmol/L Anion Gap (5-19) BUN (8-23) mg/dL Creatinine (0.5-0.9) mg/dL GFR Calculation Glucose (65-115) mg/dL Calculated Osmolal ity (285-295) mOsm/k g Calcium (8.5-10.5) mg/dL Total Bilirubin (0.15-1.2) mg/dL AST (0-32) U/L ALT (0-33) U/L Alkaline Phosphata se (35-105) IU/L Total Protein (6.6-8.7) g/dL Albumin (3.5-5.2) g/dL Globulin (1.3-4.6) g/dL Urine Color Yellow (Yellow) Urine Appearance Clear (CLEAR) Urine pH 7 (5-7) Ur Specific Gravit y 1.005 (1.005-1.030) Urine Protein Neg (Negative) Urine Glucose (UA) Norm (Normal) Urine Ketones Negative (Negative) Urine Blood Neg (Negative) Urine Nitrate Negative (Negative) Urine Bilirubin Neg (Negative) Urine Urobilinogen Norm (Negative) mg/dL Ur Leukocyte Yajaira ase Negative (Negative) Urine Opiates Scre en Negative (Negative) ng/mL Ur Barbiturates Sc reen Negative (Negative) ng/mL Ur Phencyclidine S crn Negative (Negative) ng/mL Ur Amphetamines Sc reen Negative (Negative) ng/mL U Benzodiazepines Scrn Negative (Negative) ng/mL Urine Cocaine Scre en Negative (Negative) ng/mL U Marijuana (THC) Screen Negative (Negative) ng/mL Critical Care Time Critical Care Time: Critical Care Time: Yes Total Critical Care Time: 35 Attestation: I spent 35 minutes of critical care time exclusively on this patient. This was spent reviewing medical records, obtaining history from daughter and EMS, multiple reevaluations of the patient's mental status and blood pressure, medical therapy for TIA/stroke and hypertension. 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
[2020-06-18] MEDS: acetaminophen 325 mg Tablet 650 MG PO (19:29)
[2020-06-18] MEDS: cloNIDine 0.1 mg Tablet PO (21:21)
[2020-06-18] MEDS: enoxaparin 40 mg/0.4 mL Syringe SUBCUT (21:21)
[2020-06-18] MEDS: latanoprost 0.005% Op Soln 2.5 mL Btl 1 DROP EYE-BOTH (21:22)
[2020-06-18] MEDS: dorzolamide 2% Op Soln 10 mL Btl 1 DROP EYE-BOTH (21:22)
[2020-06-18] MEDS: ALPRAZolam 0.5 mg Tablet PO (22:55)
--- NOTE | 2020-06-18 23:03 | P.HP_ITS ---
Providers/Chief Complaint Admitting Physician: Ranjeet Adams MD Primary Care Provider: Ching Varma DO Chief Complaint: BUITRAGO/HTN History of Present Illness Migdalia Serrano is a 79 year old female with PMH of CVA, with rt homonymous hemianopsia about 2 year back HTN, presented with c/o speaking word salad as well as confusion.Stroke alert was called on arrival and patient was evaluated by .Per ER chart review upon arrival she was She could not say her name, her birthdate and any attempt she made to answer questions consisted of disjointed words. She was sent stat to CT of the head:CT scan of the head shows diffuse white matter changes unchanged compared with several days ago when she was seen here previously for hypertension and headache. CT angiogram shows no sign of intracranial occlusion. Post completion of the C.T patient was reexamined by Dr. Escalera at that time she was able to her name and though it was efforftful.She s persistently complaining of forgetfulness in the ER and was telling she never has memory issues. Last Observed Normal: 08:00: Not a candidate for Tpa. Upon further chart review it was found that she was in ER on 06/13/2020,at that time she was complaining of headache from the last 2 weeks as well as elevated blood pressure.At that time also the family was concerned of stroke and wanted the patient be transferred to [place] by air VAC which was not possible.As per patients daughter she had an extensive work up at [facility] which included CTA, MR and an ultrasound which were unremarkable per daughter.She was started back on amlodipine which she had taken in the past - and clonidine PRN. Her BP had still been high and she had still been having headaches. When I was present with the patient and the daughter, daughter provided some more details, She reveals that the patient was normal at 8:00 this morning when she wrote a bunch of notes about her blood pressure and her medication. Someone called the house at 10 AM and Ms. Serrano was confused. . Daughter Arely says that Ms. Serrano has never had a problem with speech it was always confusion. .At the time of my examination her speech was slow but she was not having any difficulty with word findings,she was very much alert ,awake and oriented. NIHSS : 3 She was diagnosed with TIA in the ER. Review of Systems Const: Denies: fever(s), chills or diaphoresis Card: Denies: palpitations, edema, swelling of feet/ankles, dyspnea on exertion, orthopnea or leg pain with exertion Resp: Denies: dyspnea, productive cough, wheezing or pain on inspiration GI: Denies: abdominal pain, nausea, vomiting, diarrhea or constipation : Denies: flank pain Musc: Denies: back pain, extremity pain or extremity swelling Medications/Allergies Home Medications Medication Instructions Recorded Confirmed Last Taken Type aspirin 81 mg tablet,delayed 81 mg PO DAILY@0800 02/10/20 06/18/20 06/18/20 History release estradiol 1 mg tablet 1 mg PO DAILY@0800 02/10/20 06/18/20 06/18/20 History ferrous sulfate 250 mg (50 mg 250 mg PO DAILY@0800 02/10/20 06/18/20 06/18/20 History iron) tablet,extended release levothyroxine 75 mcg capsule 75 mcg PO DAILY@0800 02/10/20 06/18/20 06/18/20 History losartan 100 mg tablet 100 mg PO DAILY@0800 02/10/20 06/18/20 06/18/20 History montelukast 10 mg tablet 10 mg PO DAILY PRN 02/10/20 06/18/20 Unknown History sertraline 100 mg tablet 100 mg PO DAILY@0800 02/10/20 06/18/20 06/18/20 History simvastatin 5 mg tablet 5 mg PO DAILY@0800 02/10/20 06/18/20 06/18/20 History Eye Vitamin and Minerals 1 tab PO DAILY@0800 06/18/20 06/18/20 06/18/20 History Vitamin C 1 tab PO DAILY@0800 06/18/20 06/18/20 06/18/20 History Vitamin D3 1 mg PO DAILY@0800 06/18/20 06/18/20 06/18/20 History alprazolam 0.5 mg PO DAILY@0800 06/18/20 06/18/20 06/17/20 History amlodipine 10 mg PO DAILY@0800 06/18/20 06/18/20 Unknown History clonidine HCl 0.1 mg PO TID@08,,06/18/20 06/18/2018/21 History dorzolamide See Rx Instructions .ROUTE .COMPLEX 06/18/20 06/18/20 06/18/20 History hydrochlorothiazide 25 mg PO DAILY@0800 06/18/20 06/18/20 Unknown History latanoprost See Rx Instructions .ROUTE .COMPLEX 06/18/20 06/18/20 06/18/20 History skdchiti-uyn-mjkce-vit K-lycop 1 tab PO DAILY@0800 06/18/20 06/18/20 06/18/20 History [One-A-Day Men's 50 Plus] potassium chloride 10 meq PO DAILY@0800 06/18/20 06/18/20 06/18/20 History Allergies Allergy/AdvReac Type Severity Reaction Status Date / Time venlafaxine [From Effexor] Allergy ALGY-Anaphy Verified 06/13/20 17:37 laxis PFSH Acute PFSH: Medical History CVA (cerebral vascular accident) Depression High cholesterol Hypertension Family History Other CAD (coronary artery disease) Cancer Clotting disorder Diabetes Hypertension Stroke Denies family history of Dementia Hyperlipidemia Psychiatric illness Chronic kidney disease (CKD) Suicide Anesthesia complication Bleeding disorder Family history of premature coronary artery disease Lung disease Social History Smoking and tobacco status: never smoked Alcohol intake: never Lives independently: Yes Household members: none Marital status: Legally Vitals/I&O/Wt Last Vital Signs Temp 97.5 F L 06/18/20 19:57 Pulse 61 06/18/20 20:00 Resp 14 06/18/20 19:57 BP 152/66 06/18/20 22:00 Pulse Ox 94 06/18/20 19:57 06/18/20 06/18/20 06/19/20 14:59 22:59 06:59 Intake Total 120 / 120 Balance 120 / 120 Weight last 48 hrs Weight 71.123 kg Weight 54.431 kg Physical Exam Narrative: EXAM NARRATIVE: Alert , awake and oriented HENMT: COMMON NORMALS: normocephalic and atraumatic HEAD & SCALP: normocephalic and atraumatic EXTERNAL EAR: Yes external ears normal Chest: CHEST: Yes Symmetrical chest wall rise Resp: COMMON NORMALS: normal respiratory effort, No retractions, No use of accessory muscles and clear to auscultation bilaterally EFFORT & INSPECTION: Yes symmetric chest movement AUSCULTATION: clear to auscultation bilaterally Cardio: COMMON NORMALS: regular rate, regular rhythm, S1 normal heart sound present, S2 normal heart sound present, No gallops present (Cardio), No murmurs present (Cardio), No rub (Cardio) and Peripheral pulses 2+ throughout RATE: regular rate RHYTHM: regular rhythm HEART SOUNDS: S1 normal heart sound present and S2 normal heart sound present PERIPHERAL PULSES: Peripheral pulses 2+ throughout GI: COMMON NORMALS: Normal to inspection, nondistended, normoactive bowel sounds present, Soft to palpation, non-tender, No hepatosplenomegaly present and no masses AUSCULTATION: Yes normoactive bowel sounds PALPATION: Yes Soft to palpation and Yes No hepatosplenomegaly present RECTAL EXAM: deferred Extremity: COMMON NORMALS: no clubbing, cyanosis or edema and no pedal edema Neuro: COMMON NORMALS: no focal motor deficits and no sensory deficits noted Data : 06/18/20 13:04 06/18/20 13:04 A&P Assessment and plan (1) TIA (transient ischemic attack): Aspirin 81 mg oral daily Plavix 75 mg oral daily Lipior 40 mg po daily Tele 2D Echo Neurochecks q2h Fall Precautions Permissive HTN for 24 Hs since last known well. Status: Acute (2) Headache: Continue Tylenol Dialudid Will add Propranolol ESR Status: Acute (3) Hypertension, uncontrolled: Status: Acute (4) CVA (cerebral vascular accident): H/o CVA, with rt homonymous hemianopsia about 2 year back. Status: Chronic Attestations Medical Necessity Statement*: Patient needs to be in hospital for the management of TIA, uncontrolled HTN, and severe headache.Anticipated LOS greater then 2 midnights. 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
[2020-06-19] VITALS (19 sets, daily range): BP systolic 136–160; BP diastolic 64–80; PULSE 56–80; RESP 8–25; TEMP 36.4–36.8; O2SAT 93–97
[2020-06-19 04:06] LABS: Basophils # 0.1 10^3/uL (0.0-0.1); Basophils % 0.9 %; Eosinophils % 0.7 %; Hematocrit 37.2 % (37.0-47.0); Hemoglobin 11.9 g/dL (11.5-15.3); Lymphocytes # 1.5 10^3/uL (0.8-4.8); Mean Corpuscular Hemoglobin 29.8 pg (28.0-34.0); Mean Corpuscular Volume 93.2 fL (81-99); Mean Platelet Volume 10.7 fL (7.4-10.4); Monocytes # 0.3 10^3/uL (0.2-0.9); Monocytes % 5.7 %; Neutrophils # 3.77 10^3/uL (1.8-7.7); Neutrophils % 66.5 %; Nucleated Red Blood Cells % 0 %; Platelet Count 175 10^3/cmm (130-400); Red Blood Count 3.99 10^6/uL (4.1-5.3); Red Cell Distribution Width 13.9 % (12.1-15.1); White Blood Count 5.7 10^3/uL (4.0-10.0)
[2020-06-19 04:26] LABS: INR 1.06 (0.8-1.2)
[2020-06-19 04:31] LABS: Alanine Aminotransferase 14 U/L (0-33); Albumin Level 4.1 g/dL (3.5-5.2); Alkaline Phosphatase 40 IU/L (35-105); Aspartate Amino Transferase 15 U/L (0-32); Blood Urea Nitrogen 19 mg/dL (8-23); Calcium 9.1 mg/dL (8.5-10.5); Carbon Dioxide 25 mmol/L (22-29); Chloride 102 mmol/L (98-107); Creatinine Clr Calc Pharmacy 56.9612; Globulin 2.5 g/dL (1.3-4.6); Glucose 98 mg/dL (65-115); Magnesium 2.2 mg/dL (1.7-2.3); Osmolality Calculated 286 mOsm/kg (285-295); Sodium 137 mmol/L (136-145); Thyroid Stimulating Hormone 4.34 uIU/mL (0.27-4.20); Total Bilirubin 0.3 mg/dL (0.15-1.2); Total Protein 6.6 g/dL (6.6-8.7)
[2020-06-19 04:33] LABS: NT Pro B Type Natriuretic Pept 248 pg/mL (0-450)
--- NOTE | 2020-06-19 05:49 | PC.NURSE ---
NURSE NOTE: SHIFT SUMMARY: PT ALERT AND ORIENTED X4; MOVES ALL EXTREMITIES AND FOLLOWS COMMANDS. NIHSS = 0. NO PERIODS OF CONFUSION NOTED. SPEECH CLEAR. DENIES PAIN. PT REQUESTED XANAX BE GIVEN AT HS INSTEAD OF IN MORNING. NOTIFIED DR. MOLINA OF THIS REQUEST AND RECEIVED OK TO ORDER XANAX @ HS. PT RESTED WITH EYES CLOSED MOST OF SHIFT. ALL VS AND ASSESSMENTS CHARTED. NO DISTRESS NOTED.
[2020-06-19] MEDS: amlodipine 10 mg Tablet PO (07:41)
[2020-06-19] MEDS: estradiol 1 mg Tablet PO (07:41)
[2020-06-19] MEDS: atorvastatin 40 mg Tablet PO (07:41)
[2020-06-19] MEDS: aspirin 81 mg EC Tablet PO (07:41)
[2020-06-19] MEDS: sertraline 100 mg Tablet PO (07:41)
[2020-06-19] MEDS: levothyroxine 75 mcg Tablet PO (07:41)
[2020-06-19] MEDS: clopidogrel 75 mg Tablet PO (07:43)
--- NOTE | 2020-06-19 08:27 | USCV_ITS ---
Migdalia Serrano Age: 79 Gender: F : 1940 Exam Date: 06/19/2020 16:09 Ordering Phys: Ranjeet Adams MD Technologist: Elizabeth Cyr [place]am [place] [facility] [place]: TIA BP: 158 / 77 HR: 54 Rhythm: Sinus Technical Quality: Adequate MEASUREMENTS (Male / Female) Normal Values 2D ECHO LV Diastolic Diameter PLAX 4.3 cm 4.2 - 5.9 / 3.9 - 5.3 cm LV Systolic Diameter PLAX 2.6 cm LV Chamber Size 3.5 cm IVS Diastolic Thickness 0.8 cm 0.6 - 1.0 / 0.6 - 0.9 cm IVS Systolic Thickness 1.1 cm LVPW Diastolic Thickness 1.2 cm 0.6 - 1.0 / 0.6 - 0.9 cm LVPW Systolic Thickness 1.7 cm RV Chamber Size 2.4 cm LVOT Diameter 2.1 cm LV Ejection Fraction 2D Teich 68.9 % LV Ejection Fraction MOD 2C 60.5 % LV Ejection Fraction 2C AL 61.3 % LA Diameter 3.6 cm LA Width 2.1 cm LA Height 3.4 cm RA Width 3.8 cm RA Height 3.3 cm Aorta at Sinotubular Diameter 2.9 cm M-MODE LV Diastolic Diameter MM 4.5 cm 4.2 - 5.9 / 3.9 - 5.3 cm LV Systolic Diameter MM 2.9 cm LV Ejection Fraction MM Teich 63.8 % IVS Diastolic Thickness MM 1.1 cm 0.6 - 1.0 / 0.6 - 0.9 cm IVS Systolic Thickness MM 1.2 cm LVPW Diastolic Thickness MM 1.1 cm 0.6 - 1.0 / 0.6 - 0.9 cm LVPW Systolic Thickness MM 1.5 cm RV Diastolic Diameter MM 1.6 cm Aortic Annulus Diameter 3.1 cm LA Ao Ratio MM 1.3 MV E Point Septal Separation 0.3 cm DOPPLER AV Peak Velocity 141.0 cm/s LVOT Peak Velocity 77.0 cm/s AV Area Cont Eq vti 2.0 cm squared AV Area Cont Eq pk 1.8 cm squared MV Area PHT 4.1 cm squared Mitral E to A Ratio 1.2 MV E' Velocity 52.5 cm/s Mitral E to MV E' Ratio 10.2 Mitral E to LV E' Lateral Ratio 11.0 Mitral E to LV E' Septal Ratio 9.6 TR Peak Velocity 222.7 cm/s TR Peak Gradient 19.8 mmHg TR Mean Velocity 152.4 cm/s TR Mean Gradient 11.3 mmHg TR Velocity Time Integral 66.6 cm TV Peak E Velocity 59.0 cm/s Right Atrial Pressure 3.0 mmHg Pulmonary Artery Systolic Pressu 22.8 mmHg PV Peak Velocity 64.0 cm/s RV Acceleration Time 0.2 s RV Ejection Time 0.4 s RV AcT/ET 0.4 FINDINGS Left Ventricle Normal left ventricular size, systolic function and wall thickness, with no regional wall motion abnormalities. Left ventricular ejection fraction is estimated at 64 %. Normal diastolic function. Right Ventricle Normal right ventricular size and systolic function. Right ventricular systolic pressure 31 mmHg. Right Atrium Normal right atrial size. Right atrial pressure estimated at 3 mmHg. Left Atrium Normal left atrial size. Mitral Valve Structurally normal mitral valve. No mitral valve stenosis. No mitral valve regurgitation. Aortic Valve Structurally normal trileaflet aortic valve. Mild aortic valve regurgitation. Tricuspid Valve Structurally normal tricuspid valve. Trace to mild tricuspid valve regurgitation. Pulmonic Valve Pulmonic valve not well visualized. Trace pulmonary valve regurgitation. Pericardium No pericardial effusion. Aorta Normal-sized aortic root and proximal ascending aorta. Normal- sized inferior vena cava with normal respiratory variation. CONCLUSIONS 1. Normal left ventricular size, systolic function and wall thickness, with no regional wall motion abnormalities. Left ventricular ejection fraction is estimated at 64 %. Normal diastolic function. 2. Normal right ventricular size and systolic function. 3. Mild aortic valve regurgitation. 4. Right atrial pressure estimated at 3 mmHg. 5. Pulmonary artery pressure estimated at 31 mmHg. 6. No evidence of cardioembolic source of stroke based on the study. Alyson Solorio MD (Electronically Signed) Final Date: 20 June 2020 14:18 S
[2020-06-19] MEDS: ondansetron 2 mg/ML SDV 2 mL 4 MG IVP (08:37)
[2020-06-19] MEDS: propranolol 20 mg Tablet 10 MG PO ×2 (09:35→18:23)
[2020-06-19] MEDS: cloNIDine 0.1 mg Tablet PO (11:39)
--- NOTE | 2020-06-19 12:59 | PC.NURSE ---
Called doctor if okay for the dgtr to come and visit her mother. noted that her grand daughter is at bedside. but she will be leaving for this afternoon. Received okay order from doctor.
--- NOTE | 2020-06-19 13:38 | PM.PN ---
Subjective Subjective: Interval history: Patient was seen and examined this morning.She is still complaining of headache, though it has some improved since yesterday. She participated in physical therapy and walked down the [place]anna.Had no difficulty with speech, has no difficulty with word finding. No element of confusion. currently alert oriented times 3. Her vitals and labs have been reviewed. Vitals/I&O/Wt Last Vital Signs Temp 98.0 F 06/19/20 08:00 Pulse 70 06/19/20 08:00 Resp 17 06/19/20 08:00 BP 159/76 06/19/20 12:00 Pulse Ox 97 06/19/20 08:00 06/18/20 06/19/20 06/19/20 22:59 06:59 14:59 Intake Total 120 / 120 120 / 120 Balance 120 / 120 120 / 120 Weight last 48 hrs Weight 71.123 kg Weight 54.431 kg Physical Exam Narrative: EXAM NARRATIVE: Alert , awake and oriented Const: COMMON NORMALS: alert ORIENTATION/CONSCIOUSNESS: Yes oriented to person, Yes oriented to place and Yes oriented to time HENMT: COMMON NORMALS: normocephalic, atraumatic and external ears normal HEAD & SCALP: normocephalic and atraumatic EXTERNAL EAR: Yes external ears normal Chest: CHEST: Yes Symmetrical chest wall rise Resp: COMMON NORMALS: normal respiratory effort, No retractions, No use of accessory muscles and clear to auscultation bilaterally EFFORT & INSPECTION: Yes symmetric chest movement AUSCULTATION: clear to auscultation bilaterally Cardio: COMMON NORMALS: regular rate, regular rhythm, S1 normal heart sound present, S2 normal heart sound present, No gallops present (Cardio), No murmurs present (Cardio), No rub (Cardio) and Peripheral pulses 2+ throughout RATE: regular rate RHYTHM: regular rhythm HEART SOUNDS: S1 normal heart sound present and S2 normal heart sound present PERIPHERAL PULSES: Peripheral pulses 2+ throughout GI: COMMON NORMALS: Normal to inspection, nondistended, normoactive bowel sounds present, Soft to palpation, non-tender, No hepatosplenomegaly present and no masses AUSCULTATION: Yes normoactive bowel sounds PALPATION: Yes Soft to palpation and Yes No hepatosplenomegaly present RECTAL EXAM: deferred Extremity: COMMON NORMALS: no clubbing, cyanosis or edema and no pedal edema Neuro: COMMON NORMALS: no focal motor deficits and no sensory deficits noted SENSORIUM/ORIENTATION: Yes alert, Yes oriented to person, Yes oriented to place and Yes oriented to time GAIT: Yes Normal gait present MOTOR EXAM: 5/5 motor strength present throughout, Pronator motor function not present, no tremor noted, no asterixis, Motor fasciculations not present, Normal motor muscle tone present throughout and Motor abnormalities not present Data : 06/19/20 03:14 06/19/20 03:14 A&P Assessment and plan (1) TIA (transient ischemic attack): Aspirin 81 mg oral daily Plavix 75 mg oral daily Lipior 40 mg po daily Tele 2D Echo Neurochecks q2h Fall Precautions Permissive HTN for 24 Hs since last known well. 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 Status: Chronic (5) Hypothyroidism: Continue levothyroxine 75 mcg p.o. daily before breakfast. Status: Acute Attestations Medical Necessity Statement*: She needs to be in hospital for management of TIA and the need for physical therapy. Coding Level of Care Code Acute Automatic Bow Maker Machine Tender for José Manuel Tavarez Diagnoses TIA (transient ischemic attack) G45.9 Headache R51.9 Hypertension, uncontrolled I10 CVA (cerebral vascular accident) I63.9 Hypothyroidism E03.9
--- NOTE | 2020-06-19 14:06 | PC.CHAP ---
Pastoral Care Encounter/Spiritual Assessment Type of Contact [] Declined market development executive visit [] Patient/Family/Request visit [] Outpatient visit [] Follow-up visit [] Physician referral [] Code/Alert [xx] Routine visit [] Staff referral [] Actively dying [] Patient sleeping [] Family support [] [] Out of room [] Palliative care [] [] Receiving care in room [] Pre-surgical visit [] Trauma [] Long length of stay [] ICU visit [] Other: Relational/Emotional Strength [xx] Patient feels connected with others/family/visitors/staff [] Distress [] Loneliness/isolation [] Abandonment Spirituality of Patient [xx] Person of Radha [xx] Attends Amish of their Radha [xx] Believes in Prayer [xx] Reads Bible or Orthodoxy materials [] There are Spiritual issues to be addressed Airconditioning Drafting Officer Interventions [xx] Prayer [xx] Active listening [xx] Non-anxious presence [] Spiritual/emotional support [] Crisis/trauma care [] Spiritual counseling [] Bereavement support [] Provided bereavement packet [] Provided Bible/devotional materials [] Provided toy/stuffed animal, coloring book to patient or family member [] Provided Communion [] Anointing/[place] [] Salvation [xx] Completed spiritual assessment [] Other: Impact on Illness or Injury [] Angry [] Fearful [] Anxious [] Often cries [] Exhaustion [] Unable to work [] Unable to attend episcopalian [] Unable to walk/stand [] Unable to read [] Unable to drive [] Unable to eat/drink [] Unable to sleep [] Unable to be with family [] Patient intubated [] Other: Summary Patient stated she is a strong believer in Rolando Zheng. dHer children and rastafari are praying for her to get well. Time spent with patient 12 minutes
[2020-06-19] MEDS: enoxaparin 40 mg/0.4 mL Syringe SUBCUT (18:23)
--- NOTE | 2020-06-19 20:21 | PC.NURSE ---
pt orthostatic vital signs: lying- blood pressure of 145/67 pulse of 67 bpm sitting- blood pressure of 144/74 pulse of 64 bpm standing- blood pressure of 141/70 pulse of 69 bpm
[2020-06-19] MEDS: latanoprost 0.005% Op Soln 2.5 mL Btl 1 DROP EYE-BOTH (20:48)
[2020-06-19] MEDS: ALPRAZolam 0.5 mg Tablet PO (20:49)
[2020-06-19] MEDS: dorzolamide 2% Op Soln 10 mL Btl 1 DROP EYE-BOTH (20:49)
--- NOTE | 2020-06-19 21:27 | PC.NURSE ---
NURSE NOTE: ASSUMED CARE OF PATIENT AT 1900 TODAY. PT ALERT AND ORIENTED X4. MOVES ALL EXTREMITIES AND FOLLOWS COMMANDS. NIHSS = 0. CURRENTLY RESTING WITH EYES CLOSED. RESP EVEN AND NON LABORED. 02 PER RA. DENIES PAIN OR NAUSEA AT THIS TIME. ALL VS AND ASSESSMENTS CHARTED. NO DISTRESS NOTED AT THIS TIME.
[2020-06-20] VITALS (10 sets, daily range): BP systolic 135–162; BP diastolic 62–80; PULSE 57–70; RESP 14–22; TEMP 36.6–37; O2SAT 94–97
[2020-06-20 05:39] LABS: Basophils # 0.1 10^3/uL (0.0-0.1); Basophils % 1.1 %; Eosinophils # 0.1 10^3/uL (0.0-0.8); Eosinophils % 1.7 %; Hematocrit 39.2 % (37.0-47.0); Hemoglobin 12.9 g/dL (11.5-15.3); Lymphocytes # 1.8 10^3/uL (0.8-4.8); Lymphocytes % 38.6 %; Mean Corpuscular HGB Conc 32.9 g/dL (30.0-36.0); Mean Corpuscular Hemoglobin 30.3 pg (28.0-34.0); Mean Platelet Volume 10.8 fL (7.4-10.4); Monocytes # 0.3 10^3/uL (0.2-0.9); Monocytes % 6.8 %; Neutrophils # 2.46 10^3/uL (1.8-7.7); Neutrophils % 51.8 %; Nucleated Red Blood Cells % 0 %; Platelet Count 198 10^3/cmm (130-400); Red Blood Count 4.26 10^6/uL (4.1-5.3); Red Cell Distribution Width 13.7 % (12.1-15.1); White Blood Count 4.7 10^3/uL (4.0-10.0)
[2020-06-20 06:11] LABS: Alanine Aminotransferase 13 U/L (0-33); Albumin Level 4.4 g/dL (3.5-5.2); Alkaline Phosphatase 44 IU/L (35-105); Anion Gap 14.8 (5-19); Aspartate Amino Transferase 15 U/L (0-32); Blood Urea Nitrogen 16 mg/dL (8-23); Calcium 9.4 mg/dL (8.5-10.5); Carbon Dioxide 25 mmol/L (22-29); Chloride 101 mmol/L (98-107); Globulin 2.8 g/dL (1.3-4.6); Glucose 85 mg/dL (65-115); Osmolality Calculated 284 mOsm/kg (285-295); Potassium 3.8 mmol/L (3.5-5.1); Sodium 137 mmol/L (136-145); Total Bilirubin 0.4 mg/dL (0.15-1.2); Total Protein 7.2 g/dL (6.6-8.7)
[2020-06-20] MEDS: aspirin 81 mg EC Tablet PO (08:36)
[2020-06-20] MEDS: levothyroxine 75 mcg Tablet PO (08:36)
[2020-06-20] MEDS: atorvastatin 40 mg Tablet PO (08:36)
[2020-06-20] MEDS: clopidogrel 75 mg Tablet PO (08:36)
[2020-06-20] MEDS: propranolol 20 mg Tablet 10 MG PO ×2 (08:36→18:47)
[2020-06-20] MEDS: amlodipine 10 mg Tablet PO (08:37)
[2020-06-20] MEDS: sertraline 100 mg Tablet PO (08:51)
[2020-06-20 09:02] LABS: Erythrocyte Sedimentation Rate 11 mm/hr (0-15)
--- NOTE | 2020-06-20 10:48 | PC.CHAP ---
Pastoral Care Encounter/Spiritual Assessment Type of Contact [] Declined truck trailer final inspector visit [] Patient/Family/Request visit [] Outpatient visit [XX] Follow-up visit [] Physician referral [] Code/Alert [] Routine visit [] Staff referral [] Actively dying [] Patient sleeping [] Family support [] [] Out of room [] Palliative care [] [] Receiving care in room [] Pre-surgical visit [] Trauma [] Long length of stay [] ICU visit [] Other: Relational/Emotional Strength [XX] Patient feels connected with others/family/visitors/staff [] Distress [] Loneliness/isolation [] Abandonment Spirituality of Patient [XX] Person of Radha [] Attends Zoroastrianism of their Radha [XX] Believes in Prayer [XX] Reads Bible or Orthodoxy materials [] There are Spiritual issues to be addressed Medical Claims Processor Interventions [XX] Prayer [XX] Active listening [XX] Non-anxious presence [] Spiritual/emotional support [] Crisis/trauma care [] Spiritual counseling [] Bereavement support [] Provided bereavement packet [] Provided Bible/devotional materials [] Provided toy/stuffed animal, coloring book to patient or family member [] Provided Communion [] Anointing/[place] [] Salvation [] Completed spiritual assessment [] Other: Impact on Illness or Injury [] Angry [] Fearful [] Anxious [] Often cries [] Exhaustion [] Unable to work [] Unable to attend spiritism [] Unable to walk/stand [] Unable to read [] Unable to drive [] Unable to eat/drink [] Unable to sleep [] Unable to be with family [] Patient intubated [] Other: Summary: Pt was not on my list to see, but when I prayed for her roommate, I could hear her joining us in prayer. Thus, I stopped to visit with the pt. I prayed with her and she accepted a Daily Bread. Time spent with patient: 10 mins
--- NOTE | 2020-06-20 12:00 | PC.NURSE ---
Doctor rounding with son at bedside Dr. Adams at bedside to discuss plan and treatment to pt with her son at bedside.
--- NOTE | 2020-06-20 14:57 | P.PN_ITS ---
Subjective Subjective: Interval history: Patient was seen and examined this morning.Complaining of overall weakness.Headache has improved. Her vitals and labs have been reviewed.Blood pressure is better controlled. Medications: Reviewed: Yes Vitals/I&O/Wt Last Vital Signs Temp 98.3 F 06/20/20 08:00 Pulse 70 06/20/20 08:00 Resp 18 06/20/20 08:00 BP 150/80 06/20/20 12:27 Pulse Ox 97 06/20/20 08:00 06/19/20 06/20/20 06/20/20 22:59 06:59 14:59 Intake Total 360 / 600 356 / 356 Balance 360 / 600 356 / 356 Weight last 48 hrs Weight 71.123 kg Physical Exam Narrative: EXAM NARRATIVE: Alert , awake and oriented Const: COMMON NORMALS: alert ORIENTATION/CONSCIOUSNESS: Yes oriented to pe rson, Yes oriented to place and Yes oriented to time HENMT: COMMON NORMALS: normocephalic, atraumatic and external ears normal HEAD & SCALP: normocephalic and atraumatic EXTERNAL EAR: Yes external ears normal Chest: CHEST: Yes Symmetrical chest wall rise Resp: COMMON NORMALS: normal respiratory effort, No retractions, No use of accessory muscles and clear to auscultation bilaterally EFFORT & INSPECTION: Yes symmetric chest movement AUSCULTATION: clear to auscultation bilaterally Cardio: COMMON NORMALS: regular rate, regular rhythm, S1 normal heart sound present, S2 normal heart sound present, No gallops present (Cardio), No murmurs present (Cardio), No rub (Cardio) and Peripheral pulses 2+ throughout RATE: regular rate RHYTHM: regular rhythm HEART SOUNDS: S1 normal heart sound present and S2 normal heart sound present PERIPHERAL PULSES: Peripheral pulses 2+ throughout GI: COMMON NORMALS: Normal to inspection, nondistended, normoactive bowel sounds present, Soft to palpation, non-tender, No hepatosplenomegaly present and no masses AUSCULTATION: Yes normoactive bowel sounds PALPATION: Yes Soft to palpation and Yes No hepatosplenomegaly present RECTAL EXAM: deferred Extremity: COMMON NORMALS: no clubbing, cyanosis or edema and no pedal edema Neuro: COMMON NORMALS: no focal motor deficits and no sensory deficits noted SENSORIUM/ORIENTATION: Yes alert, Yes oriented to person, Yes oriented to place and Yes oriented to time GAIT: Yes Normal gait present MOTOR EXAM: 5/5 motor strength present throughout, Pronator motor function not present, no tremor noted, no asterixis, Motor fasciculations not present, Normal motor muscle tone present throughout and Motor abnormalities not present Data : 06/20/20 04:14 06/20/20 04:14 A&P Assessment and plan (1) TIA (transient ischemic attack): Aspirin 81 mg oral daily Plavix 75 mg oral daily Lipior 40 mg po daily Tele: C.T head without Contrast : No Acute intracranial pathology.Mild atrophy and mild chronic microvascular ischemic disease. CT ANGIOGRAM CEREBRAL AND CAROTID ARTERIES: No significant extracranial carotid artery stenosis.Mild intracranial carotid artery plaque without stenosis. 2D Echo: Normal left ventricular size, systolic function and wall thickness, with no regional wall motion abnormalities. Left ventricular ejection fraction is estimated at 64 %. Normal diastolic function. Normal right ventricular size and systolic function. Mild aortic valve regurgitation. Right atrial pressure estimated at 3 mmHg. Pulmonary artery pressure estimated at 31 mmHg. Neurochecks q2h Fall Precautions Permissive HTN for 24 Hs since last known well. 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 Status: Chronic (5) Hypothyroidism: Continue levothyroxine 75 mcg p.o. daily before breakfast. Status: Acute Attestations Medical Necessity Statement*: Patient needs to be in hospital for the management and work-up of TIA,uncontrolled HTN. Coding Level of Care Code Acute Customer Business Manager for Chg Fwd Diagnoses TIA (transient ischemic attack) G45.9 Headache R51.9 Hypertension, uncontrolled I10 CVA (cerebral vascular accident) I63.9 Hypothyroidism E03.9
[2020-06-20] MEDS: enoxaparin 40 mg/0.4 mL Syringe SUBCUT (18:47)
[2020-06-20] MEDS: ALPRAZolam 0.5 mg Tablet PO (20:53)
[2020-06-20] MEDS: dorzolamide 2% Op Soln 10 mL Btl 1 DROP EYE-BOTH (20:53)
[2020-06-20] MEDS: latanoprost 0.005% Op Soln 2.5 mL Btl 1 DROP EYE-BOTH (20:54)
--- NOTE | 2020-06-20 21:19 | PC.NURSE ---
NURSE NOTE: ASSUMED CARE OF PATIENT AT 1900 TODAY. PT ALERT AND ORIENTED X4; MOVES ALL EXTREMITIES AND FOLLOWS COMMANDS. DENIES PAIN OR NEEDS AT THIS TIME. NIHSS = 0. CURRENTLY RESTING QUIETLY, RESP EVEN AND NON LABORED. ALL VS AND ASSESSMENTS CHARTED.
[2020-06-20] MEDS: acetaminophen 325 mg Tablet 650 MG PO (23:28)
[2020-06-21] VITALS (8 sets, daily range): BP systolic 113–173; BP diastolic 64–83; PULSE 61–77; RESP 16–18; TEMP 36.2–36.9; O2SAT 93–95
--- NOTE | 2020-06-21 05:10 | PC.NURSE ---
Addendum entered by Cassandra Awad RN 06/21/20 05:32: DR. MOLINA GAVE ORDERS FOR OK TO GIVE 0800 DOSE OF AMLODIPINE NOW. Original Note: NURSE NOTE: BP 175/79. PATIENT EXPRESSED CONCERN OVER SBP. SENT TEXT TO DR. MOLINA AT THIS TIME. AWAITING ORDERS.
[2020-06-21] MEDS: amlodipine 10 mg Tablet PO (05:24)
[2020-06-21 06:21] LABS: Basophils % 0.8 %; Eosinophils # 0.1 10^3/uL (0.0-0.8); Eosinophils % 2.2 %; Hematocrit 39.9 % (37.0-47.0); Hemoglobin 12.8 g/dL (11.5-15.3); Lymphocytes # 1.9 10^3/uL (0.8-4.8); Lymphocytes % 37.3 %; Mean Corpuscular HGB Conc 32.1 g/dL (30.0-36.0); Mean Corpuscular Hemoglobin 29.6 pg (28.0-34.0); Mean Corpuscular Volume 92.1 fL (81-99); Mean Platelet Volume 10.3 fL (7.4-10.4); Monocytes # 0.5 10^3/uL (0.2-0.9); Neutrophils # 2.56 10^3/uL (1.8-7.7); Neutrophils % 50.3 %; Nucleated Red Blood Cells % 0 %; Platelet Count 194 10^3/cmm (130-400); Red Blood Count 4.33 10^6/uL (4.1-5.3); Red Cell Distribution Width 13.6 % (12.1-15.1); White Blood Count 5.1 10^3/uL (4.0-10.0)
[2020-06-21 07:14] LABS: Alanine Aminotransferase 14 U/L (0-33); Albumin Level 4.3 g/dL (3.5-5.2); Alkaline Phosphatase 41 IU/L (35-105); Anion Gap 14.8 (5-19); Aspartate Amino Transferase 14 U/L (0-32); Blood Urea Nitrogen 19 mg/dL (8-23); Calcium 9.1 mg/dL (8.5-10.5); Carbon Dioxide 25 mmol/L (22-29); Chloride 103 mmol/L (98-107); Globulin 2.6 g/dL (1.3-4.6); Glucose 92 mg/dL (65-115); Osmolality Calculated 290 mOsm/kg (285-295); Potassium 3.8 mmol/L (3.5-5.1); Sodium 139 mmol/L (136-145); Total Bilirubin 0.3 mg/dL (0.15-1.2); Total Protein 6.9 g/dL (6.6-8.7)
--- NOTE | 2020-06-21 08:13 | DCPLANNER ---
Pg 2 of IM updated and reviewed with Pt. She appreciates that as she hasn't been in the hospital much and hadn't heard this before. Copy provided.
[2020-06-21] MEDS: propranolol 20 mg Tablet 10 MG PO (09:09)
[2020-06-21] MEDS: sertraline 100 mg Tablet PO (09:09)
[2020-06-21] MEDS: cloNIDine 0.1 mg Tablet PO (09:10)
[2020-06-21] MEDS: clopidogrel 75 mg Tablet PO (09:10)
[2020-06-21] MEDS: aspirin 81 mg EC Tablet PO (09:10)
[2020-06-21] MEDS: levothyroxine 75 mcg Tablet PO (09:11)
[2020-06-21] MEDS: atorvastatin 40 mg Tablet PO (09:11)
[2020-06-21] MEDS: acetaminophen 325 mg Tablet 650 MG PO (09:53)
--- NOTE | 2020-06-21 11:11 | PM.DCS ---
Discharge Providers Date of Admission: 06/18/20 15:54 Date of Discharge: June 21, 2020 Attending Provider at Admission: Ranjeet Adams MD Attending Provider at Discharge: Ranjeet Adams MD Primary Care Provider: Ching Varma DO Diagnoses at Discharge Discharge Diagnosis (1) TIA (transient ischemic attack): Status: Resolved (2) Headache: Status: Resolved (3) Hypertension, uncontrolled: Status: Chronic (4) CVA (cerebral vascular accident): Status: Chronic (5) Hypothyroidism: Status: Chronic Reason for Visit Reason for Visit: BUITRAGO/HTN Hospital Course Hospital Course 9 year old female with PMH of CVA, with rt homonymous hemianopsia about 2 year back HTN, presented with c/o speaking word salad as well as confusion.Stroke alert was called on arrival and patient was evaluated by .Per ER chart review upon arrival she was She could not say her name, her birthdate and any attempt she made to answer questions consisted of disjointed words. She was sent stat to CT of the head:CT scan of the head shows diffuse white matter changes unchanged compared with several days ago when she was seen here previously for hypertension and headache. CT angiogram shows no sign of intracranial occlusion. Post completion of the C.T patient was reexamined by Dr. Escalera at that time she was able to her name and though it was efforftful.She s persistently complaining of forgetfulness in the ER and was telling she never has memory issues. Last Observed Normal: 08:00: Not a candidate for Tpa. Upon further chart review it was found that she was in ER on 06/13/2020,at that time she was complaining of headache from the last 2 weeks as well as elevated blood pressure.At that time also the family was concerned of stroke and wanted the patient be transferred to [facility] by air VAC which was not possible.As per patients daughter she had an extensive work up at [facility] which included CTA, MR and an ultrasound which were unremarkable per daughter.She was started back on amlodipine which she had taken in the past - and clonidine PRN. Her BP had still been high and she had still been having headaches. When I was present with the patient and the daughter, daughter provided some more details, She reveals that the patient was normal at 8:00 this morning when she wrote a bunch of notes about her blood pressure and her medication. Someone called the house at 10 AM and Ms. Lozano was confused. . Daughter Arely says that Ms. Lozano has never had a problem with speech it was always confusion. .At the time of my examination her speech was slow but she was not having any difficulty with word findings,she was very much alert ,awake and oriented. NIHSS : 3 She was diagnosed with TIA in the ER. She was kept on aspirin 81 mg oral daily, Plavix 75 mg po daily, atorvastatin 40 mg p.o. daily, in the initial 24 hours permissive hypertension was allowed. 2D echo done during the hospital stay: Normal left ventricular size, systolic function and wall thickness, with no regional wall motion abnormalities. Left ventricular ejection fraction is estimated at 64 %. Normal diastolic function. Normal right ventricular size and systolic function. Mild aortic valve regurgitation. Right atrial pressure estimated at 3 mmHg. Pulmonary artery pressure estimated at 31 mmHg. No significant arrhythmia was detected on telemetry monitoring. For her history of headache she was started on propranolol 10 mg p.o. every 12 hours daily. She was continued on Tylenol. For history of uncontrolled hypertension she was on amlodipine 10 mg p.o. plus as needed clonidine 0.1 mg TID.She was discharged on her home medications. She was offered to get event monitor placed for 3 weeks, but at this point in time she has decided to continue to follow with Dr. Escalera as well as Dr. Bess as an outpatient and later on decide about getting an event monitor placed, for monitoring of possible A. fib/other arrhythmias. Physical therapy was on board and they recommended that she is safe to be discharged home. She responded well to the above medical management and is being discharged in stable condition. She will continue to follow the primary care physician as well as and Dr. Ferris as outpatient. Physical Exam Narrative: EXAM NARRATIVE: Alert , awake and oriented Const: COMMON NORMALS: alert ORIENTATION/CONSCIOUSNESS: Yes oriented to person, Yes oriented to place and Yes oriented to time HENMT: COMMON NORMALS: normocephalic, atraumatic and external ears normal HEAD & SCALP: normocephalic and atraumatic EXTERNAL EAR: Yes external ears normal Chest: CHEST: Yes Symmetrical chest wall rise Resp: COMMON NORMALS: normal respiratory effort, No retractions, No use of accessory muscles and clear to auscultation bilaterally EFFORT & INSPECTION: Yes symmetric chest movement AUSCULTATION: clear to auscultation bilaterally Cardio: COMMON NORMALS: regular rate, regular rhythm, S1 normal heart sound present, S2 normal heart sound present, No gallops present (Cardio), No murmurs present (Cardio), No rub (Cardio) and Peripheral pulses 2+ throughout RATE: regular rate RHYTHM: regular rhythm HEART SOUNDS: S1 normal heart sound present and S2 normal heart sound present PERIPHERAL PULSES: Peripheral pulses 2+ throughout GI: COMMON NORMALS: Normal to inspection, nondistended, normoactive bowel sounds present, Soft to palpation, non-tender, No hepatosplenomegaly present and no masses AUSCULTATION: Yes normoactive bowel sounds PALPATION: Yes Soft to palpation and Yes No hepatosplenomegaly present RECTAL EXAM: deferred Extremity: COMMON NORMALS: no clubbing, cyanosis or edema and no pedal edema Neuro: COMMON NORMALS: no focal motor deficits and no sensory deficits noted SENSORIUM/ORIENTATION: Yes alert, Yes oriented to person, Yes oriented to place and Yes oriented to time GAIT: Yes Normal gait present MOTOR EXAM: 5/5 motor strength present throughout, Pronator motor function not present, no tremor noted, no asterixis, Motor fasciculations not present, Normal motor muscle tone present throughout and Motor abnormalities not present Discharge Data Data Completed and Pending: Completed Studies During Hospitalization Category Date Time Status CT angio headneck * [id number] Urge nt Cat Scan 06/18/20 13:[address] head wo con* 7 [id number] Urgent Cat Scan 06/18/20 13:00 Completed XR chest 1V salima ble [id number] Stat Exams 06/18/20 13:03 Completed CV echo complete* [id number] Routine Ultrasound 06/19/20 08:27 Completed Labs from last 24 hours 06/21/20 06/21/20 05:51 05:51 WBC 5.1 RBC 4.33 Hgb 12.8 Hct 39.9 MCV 92.1 MCH 29.6 MCHC 32.1 RDW 13.6 Plt Count 194 MPV 10.3 Neut % (Auto) 50.3 Lymph % (Auto) 37.3 Cochran % (Auto) 9.0 Eos % (Auto) 2.2 Baso % (Auto) 0.8 Neut # (Auto) 2.56 Lymph # (Auto) 1.9 Cochran # (Auto) 0.5 Eos # (Auto) 0.1 Baso # (Auto) 0.0 Nucleated RBC % (a uto) 0 Nucleated RBCs # 0.0 Sodium 139 Potassium 3.8 Chloride 103 Carbon Dioxide 25 Anion Gap 14.8 BUN 19 Creatinine 0.9 GFR Calculation Not Reportable Glucose 92 Calculated Osmolal ity 290 Calcium 9.1 Total Bilirubin 0.3 AST 14 ALT 14 Alkaline Phosphata se 41 Total Protein 6.9 Albumin 4.3 Globulin 2.6 Vitals: Last Vital Signs Temp 97.2 F L 06/21/20 07:43 Pulse 77 06/21/20 07:43 Resp 18 06/21/20 07:43 BP 168/80 06/21/20 09:10 Pulse Ox 95 06/21/20 07:43 Discharge Plan Discharge Patient Disposition: Home Condition: Stable Prescriptions: New Plavix 75 mg tablet 75 mg PO DAILY Qty: 30 RF: 0 Lipitor 40 mg tablet 40 mg PO DAILY Qty: 30 RF: 0 propranolol 10 mg tablet 10 mg PO BID Qty: 60 RF: 0 Continued estradiol 1 mg tablet 1 mg PO DAILY@0800 RF: 0 losartan 100 mg tablet 100 mg PO DAILY@0800 RF: 0 sertraline [Zoloft] 100 mg tablet 100 mg PO DAILY@0800 RF: 0 levothyroxine 75 mcg capsule 75 mcg PO DAILY@0800 RF: 0 montelukast [Singulair] 10 mg tablet 10 mg PO DAILY PRN (Reason: Allergy Symptoms) RF: 0 aspirin 81 mg tablet,delayed release (DR/EC) 81 mg PO DAILY@0800 RF: 0 ferrous sulfate 250 mg (50 mg iron) tablet extended release 250 mg PO DAILY@0800 RF: 0 latanoprost 0.005 % drops See Rx Instructions .ROUTE .COMPLEX RF: 0 clonidine HCl 0.1 mg tablet 0.1 mg PO TID@08,12,20 RF: 0 potassium chloride 10 mEq Tablet Extended Release 10 meq PO DAILY@0800 RF: 0 alprazolam 0.5 mg tablet 0.5 mg PO BEDTIME RF: 0 hydrochlorothiazide 25 mg tablet 25 mg PO DAILY@0800 RF: 0 dorzolamide 2 % drops See Rx Instructions .ROUTE .COMPLEX RF: 0 One-A-Day Men's 50 Plus 400-20-370 mcg Tablet 1 tab PO DAILY@0800 RF: 0 Eye Vitamin and Minerals 1 tab PO DAILY@0800 RF: 0 Vitamin C 1 tab PO DAILY@0800 RF: 0 Vitamin D3 1 mg PO DAILY@0800 RF: 0 amlodipine 10 mg tablet 10 mg PO DAILY@0800 RF: 0 Discontinued simvastatin 5 mg tablet 5 mg PO DAILY@0800 RF: 0 Discharge Orders: Discharge Order (Routine); Ordered 06/21/20 Ordered By: Ranjeet Adams Referrals: Nelia Escalera MD [Physician] - 2 weeks ([facility] WILL CALL YOU TO SET UP AN APPOINTMENT TO SEE DR. ESCALERA. IF YOU DO NOT HEAR FROM THEM BY MONDAY GIVE THE OFFICE A CALL AT [phone]. ) Skip Bess MD [Physician] - 2 weeks (PLEASE CALL [facility] TO SET UP AN APPOINMENT WITH DR. BESS AT [phone].) Discharge Diet: Low Salt Discharge Activity: Resume usual activity Patient Instructions: Propranolol (By mouth), Atorvastatin (By mouth), Clopidogrel (By mouth), Transient Ischemic Attack (DC), Hypothyroidism (DC), Hypertension (DC) Discharge Attestations Time Spent in Discharge Care*: greater than 30 min Specific Discharge Activities: educating patient, educating and/or supporting family/caregiver, discussing with assistant case manager/social workers/dc planners, documenting/other paperwork and evaluating patient/reviewing data Status at Discharge: Cognitive status at discharge: cognitively intact, Behavioral status at discharge: cooperative, Functional status at discharge: independent ambulation Overall status at discharge: patient is back to baseline Quality Metrics Clinical Quality Measures During this hospital stay, did patient experience: None Coding Level of Care Code Acute Dross Puller for Pandag Fwd Exam Comprehensive Diagnoses TIA (transient ischemic attack) G45.9 Headache R51.9 Hypertension, uncontrolled I10 CVA (cerebral vascular accident) I63.9 Hypothyroidism E03.9
--- NOTE | 2020-06-21 12:53 | PC.NURSE ---
Discharge instructions given per the physician's instructions. Patient verbalized understanding of teaching and did not have any further questions. IV has been removed. Patient dressed self. Rx cancelled at [facility] and called into [facility] per patient's request.
== END 2020-06-21 13:23 | disposition home or self-care (01) | DRG 69 ==
LOC: ER 13:06 → CSU 17:51
PROVIDERS: Admitting Provider Internal Medicine; Emergency Provider Emergency Medicine; PCP Family Medicine; Visit Provider Internal Medicine
DX: G45.9 Transient cerebral ischemic attack, unspecified (principal); I10 Essential (primary) hypertension; E03.9 Hypothyroidism, unspecified; Z86.73 Personal history of transient ischemic attack (TIA), and cerebral infarction without residual deficits; Z79.82 Long term (current) use of aspirin; R29.703 NIHSS score 3; F32.9 Major depressive disorder, single episode, unspecified; H53.47 Heteronymous bilateral field defects
CPT/HCPCS: 36415; 70450; 70496; 70498; 71045; 80053; 80306; 81003; 83735; 83880; 84443; 85025; 85610; 85651; 85730; 93005; 93306; 96372; 96374; 96375; 97161; 97165; 97530; 99291; G0378; J1650; J2270; J2405; J8499; Q9967

== ENCOUNTER → 2020-06-24 15:33 | Outpatient (BNVA) | payer MEDICARE, MEDICAID, SELFPAY | PROVIDERS: PCP Family Medicine; Visit Provider Nurse Practitioner | DX: Z86.73 Personal history of transient ischemic attack (TIA), and cerebral infarction without residual deficits (principal); Z87.891 Personal history of nicotine dependence | CPT/HCPCS: 99204; 99205 ==

== ENCOUNTER 2020-10-16 12:06 | Outpatient (CLI) | payer MEDICARE, MEDICAID, SELFPAY ==
--- NOTE | 2020-10-16 12:14 | USCV_ITS ---
Migdalia Serrano Age: 80 Gender: F : 1940 Exam Date: 10/16/2020 12:51 Ordering Phys: Ching Varma DO Technologist: Anya Marinelli Exam Location: [facility] Indication: RLE PAIN AND SWELLING HISTORY: Lower extremity swelling. Lower extremity pain. PROCEDURES: Venous duplex imaging was performed in only the right lower extremity. The following venous structures were evaluated: common femoral vein, profunda vein, proximal portion of the greater saphenous vein, superficial femoral vein, and the popliteal vein. In addition, the posterior tibial and peroneal trunk were evaluated. Serial compression, augmentation maneuvers, and spectral Doppler flow evaluation were performed. FINDINGS: No evidence of DVT seen in any vessel visualized at this time. LARGE FLUID COLLECTION SEEN IN RIGHT MED POP FOSSA CONCLUSIONS No evidence of right lower extremity DVT. Popliteal cyst measuring 2.6 x 1.8 x 4.5cm Nathen Ruiz MD (Electronically Signed) Final Date: 16 October 2020 13:26 S
== END 2020-10-16 12:07 | disposition home or self-care (01) ==
LOC: RAD 12:09
PROVIDERS: PCP Family Medicine; Visit Provider Family Medicine
DX: M79.89 Other specified soft tissue disorders (principal); M79.605 Pain in left leg
CPT/HCPCS: 93971

== ENCOUNTER → 2020-12-04 13:02 | Outpatient (BNVA) | payer MEDICARE, MEDICAID, SELFPAY | PROVIDERS: PCP Family Medicine; Visit Provider Podiatrist Foot & Ankle Surgery | DX: M79.671 Pain in right foot (principal) | CPT/HCPCS: 73630 ==

== ENCOUNTER → 2021-10-18 15:26 | Outpatient (BNVA) | payer MEDICARE, MEDICAID, SELFPAY | PROVIDERS: PCP Family Medicine; Visit Provider Podiatrist Foot & Ankle Surgery | DX: M79.671 Pain in right foot (principal); M19.071 Primary osteoarthritis, right ankle and foot; G57.61 Lesion of plantar nerve, right lower limb | CPT/HCPCS: 99213 ==

== ENCOUNTER 2021-12-06 11:12 | Outpatient (CLI) | payer MEDICARE, MEDICAID, SELFPAY | END 2021-12-06 11:13 | disposition home or self-care (01) | LOC: SPT 11:13 | PROVIDERS: PCP Family Medicine; Visit Provider Podiatrist Foot & Ankle Surgery | DX: Z46.89 Encounter for fitting and adjustment of other specified devices (principal); G57.61 Lesion of plantar nerve, right lower limb | CPT/HCPCS: 97760; L3030 ==

== ENCOUNTER 2021-12-15 13:38 | Outpatient (CLI) | payer MEDICARE, MEDICAID, SELFPAY ==
--- NOTE | 2021-12-15 14:32 | PFTS_ITS ---
Date of Study:12/15/21 Date of Dictation: MECHANICS: Forced vital capacity (FVC) is normal. Forced expiratory volume in one second (FEV1) is reduced. FEV1/FVC is reduced. FLOW VOLUME LOOP: Reduced at all lung volumes with significant scooping. LUNG VOLUMES: Total lung capacity (TLC) is normal. Residual volume (RV) is increased. DIFFUSING CAPACITY FOR CARBON MONOXIDE: Mild reduced. INTERPRETATION: The postbronchodilator spirometry is consistent with moderate airflow obstruction. There is a significant postbronchodilator response. Lung volumes are consistent with air trapping. Gas exchange (DLCO) is mildly reduced. MTDD
== END 2021-12-15 13:39 | disposition home or self-care (01) ==
LOC: RT 13:39
PROVIDERS: PCP Family Medicine; Visit Provider Internal Medicine Pulmonary Disease
DX: J44.9 Chronic obstructive pulmonary disease, unspecified (principal)
CPT/HCPCS: 94060; 94618; 94726; 94729

== ENCOUNTER 2022-02-04 10:31 | Outpatient (CLI) | payer MEDICARE, MEDICAID, SELFPAY ==
--- NOTE | 2022-02-04 10:38 | MM_ITS ---
WS: [id number] BILATERAL SCREENING DIGITAL TOMOSYNTHESIS MAMMOGRAM WITH CAD HISTORY: SCREENING COMPARISON: 10/23/2015, 11/30/2017 and 12/08/2017 Bilateral CC and MLO views with tomosynthesis and synthetic mammography submitted. Computer aided det ection analyzed. Breast composition: There are scattered areas of fibroglandular density. No suspicious masses, microc alcifications or architectural distortion. Stable asymmetries in the upper-outer quadrant of the LEFT breast. MM/[place] [id number] IMPRESSION: BI-RADS: 2-Benign FOLLOW UP: 1 Year Follow-up
== END 2022-02-04 10:32 | disposition home or self-care (01) ==
LOC: RAD 10:33
PROVIDERS: PCP Family Medicine; Visit Provider Family Medicine
DX: Z12.31 Encounter for screening mammogram for malignant neoplasm of breast (principal)
CPT/HCPCS: 77063; 77067

== ENCOUNTER → 2022-07-06 15:36 | Outpatient (BNVA) | payer MEDICARE, MEDICAID, SELFPAY | PROVIDERS: PCP Family Medicine; Visit Provider Specialist | DX: M17.0 Bilateral primary osteoarthritis of knee (principal) | CPT/HCPCS: 73560; 73565; 99214 ==

== ENCOUNTER 2022-08-10 07:05 | Outpatient (CLI) | payer MEDICARE, MEDICAID, SELFPAY ==
--- NOTE | 2022-08-10 07:00 | CT_ITS ---
WS: [id number] CT RIGHT knee, noncontrast HISTORY: KNEE PAIN TECHNIQUE: Protocol for NAIF total knee replacement has been obtained. This includes axial imaging th rough the RIGHT hip, RIGHT knee and RIGHT ankle. DLP: 987.58 mGy.cm COMPARISON: None available. Pelvis: Facet joint arthritis in the lower lumbar spine. Mild bilateral SI joint sclerosis. Mild narr owing of the hip joints. No destructive bone lesions. RIGHT knee: Mild to moderate tricompartment joint space narrowing with osteophyte formation. Most sig nificant narrowing medial compartment. No destructive bone lesions. Atherosclerosis femoral and popli teal artery. Moderate Soto's cyst. RIGHT ankle: No destructive process. No fractures. CT/CT knee RT [facility] IMPRESSION: CT imaging provided for [facility] robotic total knee replacement.
== END 2022-08-10 07:06 | disposition home or self-care (01) ==
PROVIDERS: PCP Family Medicine; Visit Provider Nurse Practitioner Family
DX: M17.0 Bilateral primary osteoarthritis of knee (principal); Z96.651 Presence of right artificial knee joint
CPT/HCPCS: 73700

== ENCOUNTER → 2022-08-17 13:16 | Outpatient (BNVA) | payer MEDICARE, MEDICAID, SELFPAY | PROVIDERS: PCP Family Medicine; Visit Provider Specialist | DX: M17.11 Unilateral primary osteoarthritis, right knee (principal) | CPT/HCPCS: 99214 ==

== ENCOUNTER 2022-08-18 12:12 | Outpatient (CLI) | payer MEDICARE, MEDICAID, SELFPAY ==
--- NOTE | 2022-08-18 12:34 | XRR_ITS ---
PROCEDURE INFORMATION: Exam: XR Chest Exam date and time: 08/18/2022 12:39 PM Age: 82 years old Clinical indication: Condition or disease; Lung condition and disease; Copd; With exacerbation; Additional info: Copd with exacerbation TECHNIQUE: Imaging protocol: Radiologic exam of the chest. Views: 2 views. COMPARISON: CR XR chest 1V portable [id number] 06/18/2020 1:18 PM FINDINGS: Lungs: Unremarkable. No consolidation. Pleural spaces: Unremarkable. No pleural effusion. No pneumothorax. Heart/Mediastinum: Unremarkable. No cardiomegaly. Bones/joints: Unremarkable. XR/XR chest 2V* [id number] IMPRESSION: No acute findings.
== END 2022-08-18 12:13 | disposition home or self-care (01) ==
LOC: RAD 12:15
PROVIDERS: PCP Family Medicine; Visit Provider Nurse Practitioner Family
DX: J44.1 Chronic obstructive pulmonary disease with (acute) exacerbation (principal)
CPT/HCPCS: 71046

== ENCOUNTER 2022-08-30 13:37 | Outpatient (CLI) | payer MEDICARE, MEDICAID, SELFPAY | END 2022-08-30 13:38 | disposition home or self-care (01) | PROVIDERS: PCP Family Medicine; Visit Provider Specialist | DX: Z01.818 Encounter for other preprocedural examination (principal) | CPT/HCPCS: 93005 ==

== ENCOUNTER 2022-09-06 10:42 | Observation (INO) | payer MEDICARE, MEDICAID, SELFPAY ==
[2022-08-30 13:16] VITALS: BMI 25.0
[2022-08-30 14:06] LABS: Basophils % 0.4 %; Eosinophils # 0.4 10^3/uL (0.0-0.8); Eosinophils % 6.1 %; Hematocrit 36.8 % (37.0-47.0); Hemoglobin 11.8 g/dL (11.5-15.3); Lymphocytes # 1.4 10^3/uL (0.8-4.8); Lymphocytes % 21.3 %; Mean Corpuscular HGB Conc 32.1 g/dL (30.0-36.0); Mean Corpuscular Volume 93.6 fl (81-99); Mean Platelet Volume 9.9 fL (7.4-10.4); Monocytes # 0.5 10^3/uL (0.2-0.9); Monocytes % 7.2 %; Neutrophils # 4.32 10^3/uL (1.8-7.7); Neutrophils % 64.7 %; Nucleated Red Blood Cells % 0 %; Platelet Count 160 10^3/cmm (130-400); Red Blood Count 3.93 10^6/uL (4.1-5.3); White Blood Count 6.7 10^3/uL (4.0-10.0)
[2022-08-30 14:09] LABS: Add Urine Microscopic? NO; Charge for UA Resulting for Rev
--- NOTE | 2022-08-30 14:15 | ECG_ITS ---
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 Measurements Intervals [place] Rate: 52 P: 151 TN: 186 QRS: 152 QRSD: 112 T: 53 QT: 392 QTc: 368 Interpretive Statements ECTOPIC ATRIAL BRADYCARDIA INCOMPLETE RIGHT BUNDLE BRANCH BLOCK [90+ ms QRS DURATION, TERMINAL R IN V1/V2, 40+ ms S IN I/aVL/V4/V5/V6] POSSIBLE RIGHT VENTRICULAR HYPERTROPHY [SOME/ALL OF: PROMINENT R IN V1, LATE TRANSITION, RAD, TAMANNA, SSS] LATERAL MYOCARDIAL INFARCTION , OF INDETERMINATE AGE [40+ ms Q WAVE AND/OR ST/T ABNORMALITY IN I/aVL/V5/V6] Compared to ECG 06/18/2020 13:22:06 Bradycardia, nonsinus now present Incomplete right bundle-branch block now present Myocardial infarct finding now present Sinus rhythm no longer present Indeterminate axis no longer present Right bundle-branch block no longer present Electronically Signed On 08-31-2022 0:30:24 CDT by Skip Clarke M.D. [id number]
[2022-08-30 14:27] LABS: Alanine Aminotransferase 27 U/L (0-33); Alkaline Phosphatase 52 U/L (35-105); Anion Gap 11.6 (5-19); Aspartate Amino Transferase 17 U/L (0-32); Blood Urea Nitrogen 22 mg/dL (8-23); Calcium 9.6 mg/dL (8.5-10.5); Carbon Dioxide 29 mmol/L (22-29); Chloride 101 mmol/L (98-107); Globulin 2.2 g/dL (1.3-4.6); Glucose 102 mg/dL (65-115); Osmolality Calculated 288 mOsm/kg (285-295); Potassium 4.6 mmol/L (3.5-5.1); Sodium 137 mmol/L (136-145); Total Bilirubin 0.3 mg/dL (0.15-1.2); Total Protein 6.2 g/dL (6.6-8.7)
--- NOTE | 2022-08-30 14:27 | ANES.PREANE2 ---
Pre-Anesthetic Assessment Height/Weight: Height 1.65 m Weight 68.039 kg Operation Date: 09/06/22 10:35 Proposed Procedures p RIGHT TOTAL KNEE ARTHROPLASTY WITH [facility] GUIDANCE 11135,M17.10(Right) - Tyra Diaz MD Familial anesthetic complications: None Social No alcohol and No tobacco Exam alert, oriented x 3, clear to auscultation bilaterally and regular rate & rhythm Airway Mallampati: Class II Dentition: false Pulmonary Asthma and Chronic Obstructive Pulmonary Disease (moderate) CV/HEM Hypertension Metabolic Thyroid Disease Neuropsych Cerebrovascular Accident (R eye decreased vision) Anesthetic Plan ASA status: 3 Anesthesia: General and Regional (specify below) Risk of > 500 ml blood loss (7ml/kg in children): Yes, adequate IV access and fluids planned Medications/Allergies Home Medications Medication Instructions Recorded Confirmed Last Taken Type estradiol 1 mg tablet 1 mg PO DAILY@0800 02/10/20 08/30/22 06/18/20 History levothyroxine 75 mcg capsule 75 mcg PO DAILY@0800 02/10/20 08/30/22 06/18/20 History losartan 100 mg tablet 100 mg PO DAILY@0800 02/10/20 08/30/22 06/18/20 History sertraline 100 mg tablet (Zoloft) 100 mg PO DAILY@0800 02/10/20 08/30/22 06/18/20 History Eye Vitamin and Minerals 1 tab PO DAILY@0800 06/18/20 08/17/22 06/18/20 History Vitamin C 1 tab PO DAILY@0800 06/18/20 08/30/22 06/18/20 History alprazolam 0.5 mg tablet 0.5 mg PO BEDTIME 06/18/20 08/30/22 06/17/20 History amlodipine 10 mg tablet 10 mg PO DAILY@0800 06/18/20 08/30/22 Unknown History clonidine HCl 0.1 mg tablet 0.1 mg PO PRN PRN Blood Pressure 06/18/20 08/30/22 06/18/20 History hydrochlorothiazide 25 mg tablet 25 mg PO DAILY@0800 06/18/20 08/30/22 Unknown History latanoprost 0.005 % eye drops See Rx Instructions .Route .COMPLEX 06/18/20 08/30/22 06/18/20 History potassium chloride 10 mEq 10 meq PO DAILY@0800 06/18/20 08/30/22 06/18/20 History tablet,extended release atorvastatin 40 mg tablet (Lipitor) 40 mg PO DAILY #30 tabs 06/21/20 08/30/22 Unknown Rx clopidogrel 75 mg tablet (Plavix) 75 mg PO DAILY #30 tabs 06/21/20 08/30/22 Unknown Rx carvedilol 12.5 mg tablet 12.5 mg PO BID 30 days #60 tabs 12/29/20 08/30/22 Unknown Rx apple cider vinegar 500 mg tablet See Rx Instructions PO .COMPLEX 06/07/21 08/30/22 Unknown History dorzolamide 2 % eye drops 1 drp ophthalmic (eye) TID 06/07/21 08/30/22 Unknown History ferrous sulfate 250 mg (50 mg 325 mg PO DAILY@0800 06/07/21 08/30/22 Unknown History iron) tablet,extended release Custome Insoles #1 ea 10/18/21 08/17/22 Unknown Rx albuterol sulfate 90 mcg/actuation 2 inh inhalation Q6H PRN shortness 10/29/21 08/30/22 Unknown Rx breath activated powder inhaler of breath or wheezing #1 ea fluticasone propionate 45 2 puff inhalation BID #12 grams 07/11/22 08/30/22 Unknown Rx mcg-salmeterol 21 mcg/actuation HFA inhaler (Advair HFA) cyanocobalamin (vitamin B-12) 100 100 mcg PO DAILY 08/17/22 08/30/22 Unknown History mcg tablet omega 1-hlh-urj-fish oil 300 1 cap PO DAILY 08/17/22 08/30/22 Unknown History mg-1,000 mg capsule (Fish Oil) magnesium 500 mg PO DAILY 08/30/22 08/30/22 Unknown History zinc 50 mg PO DAILY 08/30/22 08/30/22 Unknown History Allergies Allergy/AdvReac Type Severity Reaction Status Date / Time tizanidine Allergy Elevated BP Verified 08/17/22 13:32 venlafaxine [From Effexor] Allergy ALGY-Anaphy Verified 08/17/22 13:32 laxis diazepam [From Valium] AdvReac makes my Verified 08/17/22 13:32 eyes dance [facility] Anesthesia Medical History COPD (chronic obstructive pulmonary disease) CVA (cerebral vascular accident) Depression Headache High cholesterol History of asthma History of nonmelanoma skin cancer Hypertension Hypertension, uncontrolled Hypothyroidism TIA (transient ischemic attack) Surgical History History of hand surgery Hx of bilateral oophorectomy Hx of bladder repair surgery Hx of cataract extraction Hx of hysterectomy Family History Father Diabetes Stroke CAD (coronary artery disease) Mother CAD (coronary artery disease) Myocardial infarct Brother CAD (coronary artery disease) Other Cancer Clotting disorder Hypertension Denies family history of Dementia Hyperlipidemia Psychiatric illness Chronic kidney disease (CKD) Suicide Anesthesia complication Bleeding disorder Family history of premature coronary artery disease Lung disease Social History Smoking and tobacco status: former smoker Quit status (tobacco): has quit using tobacco Year quit tobacco: age 33 Former quit date comment: less than 1ppd x 17 years Alcohol intake: never Substance/Drug Use: never Lives independently: Yes Household members: none Marital status: Legally Data Anesthesia 08/30/22 13:50 08/30/22 13:50 Short CBC 08/30/22 Range/Units 13:50 WBC 6.7 (4.0-10.0) 10^3/uL Hgb 11.8 (11.5-15.3) g/dL Hct 36.8 L (37.0-47.0) % MCV 93.6 (81-99) fl Plt Count 160 (130-400) 10^3/cmm Neut % (Auto) 64.7 % Neut # (Auto) 4.32 (1.8-7.7) 10^3/uL Cardiac Studies: Echocardiogram Ultrasound 06/19/20
[2022-08-30 14:31] LABS: Bilirubin Urine Neg (Negative); Blood Urine Neg (Negative); Glucose Urine UA Norm (Normal); Ketones Urine Negative (Negative); Leukocyte Esterase Urine Negative (Negative); Nitrate Urine Negative (Negative); Protein Urine Neg (Negative); Specific Gravity, Urine 1.015 (1.005-1.030); Sulfosalicylic Acid Urine Negative (Negative); Urine Appearance Clear (CLEAR); Urine Color Yellow (Yellow); Urobilinogen Urine Norm (Negative); pH Urine 8 (5-7)
[2022-09-06] VITALS (29 sets, daily range): BP systolic 113–162; BP diastolic 51–88; PULSE 48–62; RESP 12–18; TEMP 36.3–36.8; O2SAT 93–100
--- NOTE | 2022-09-06 06:36 | P.HPUD_ITS ---
Surgery/Procedure H&P Update DATE OF PROCEDURE: September 06, 2022 DATE H&P PERFORMED: 08/17/22 H&P UPDATE INFORMATION: I have reviewed H&P completed within last 30 days, I have examined patient prior to procedure, No changes to prior documentation and H&P is in [facility] EMR on date indicated PREOP DIAGNOSIS: Primary osteoarthritis right knee PLANNED PROCEDURE: Operation Date: 09/06/22 07:00 Proposed Procedures p RIGHT TOTAL KNEE ARTHROPLASTY WITH NAIF GUIDANCE 97513,M17.10(Right) - Tyra Diaz MD Related Problem List Diagnoses (1) Primary osteoarthritis of right knee:
[2022-09-06] MEDS: gabapentin 300 mg Capsule PO (06:44)
[2022-09-06] MEDS: CELEcoxib 200 mg Capsule 400 MG PO (06:44)
[2022-09-06] MEDS: acetaminophen 1,000 MG/100 ML PIGGYBACK 400 MG IV ×2 (06:44→14:00)
[2022-09-06] MEDS: sodium chloride 0.9% 1,000 ML 30 ML IV (06:46)
[2022-09-06] MEDS: ceFAZolin 2,000 MG in sodium chloride 0.9% (plus) 50 ML 100 MG IV ×2 (07:05→14:02)
--- NOTE | 2022-09-06 07:55 | P.ANESUD_ITS ---
Pre-Anesthetic Update Pre-Anesthetic Assessment: Date of Surgery/Procedure: 09/06/22 Preop Otilia gnosis: Primary osteoarthritis right knee Proposed Procedure: Operation Date: 09/06/22 07:00 Proposed Procedures p RIGHT TOTAL KNEE ARTHROPLASTY WITH NAIF GUIDANCE 23895,M17.10(Right) - Tyra Diza MD Any changes to Pre-Anesthetic Assessment?: No Last Intake: Intake Last Liquid Date 09/05/22 Last Liquid Time 22:00 Last Solid Date 09/05/22 Last Solid Time 22:00 Vitals: Temperature 97.3 F L 09/06/22 06:21 Temperature Source Temporal Artery S can 09/06/22 06:21 Pulse Rate 60 09/06/22 06:21 Pulse Rhythm Regular 09/06/22 06:17 Pulse Strength 3+ Normal 09/06/22 06:17 Respiratory Rate 18 09/06/22 06:21 Blood Pressure 141/66 09/06/22 06:21 Blood Pressure Tri n 91 09/06/22 06:21 Pulse Oximetry 97 09/06/22 06:21 Oxygen Delivery Me thod Room Air 09/06/22 06:21 Exam: Pre-Anes Outpt Exam: alert, oriented x 3, clear to auscultation bilaterally and regular rate & rhythm Cardiac Studies: Echocardiogram Ultrasound 06/19/20 Anesthesia Procedures Nerve Block: Nerve Block 1: Main Anesthesia: spinal anesthesia block Time Out Performed: Yes Consent: requested by attending/covering physician, from patient, risks and benefits reviewed and patient agrees to proceed Nerve block location: adductor canal (right) Anesthesia monitors applied: pulse oximetry, EKG, BP cuff and oxygen Nerve block position: supine Anesthetic Used: ropivicaine 0.5% Amount of anesthesia used (mL): 20 Ultrasound used to: recognize landmarks Nerve Stimulator Used?: No Interscalene/Femoral BLK: 4 stimuplex 21 g needle used for position and inplane approach Injection: neg aspiration of heme Patient Tolerated Procedure: well Complications: none
[2022-09-06] MEDS: ceFAZolin 1,000 mg SDV 2000 MG IRRIGATION (07:57)
[2022-09-06] MEDS: vancomycin 1,000 MG SDV 1000 MG XX (07:58)
[2022-09-06] MEDS: tranexamic acid 1,000 mg/10mL SDV 1000 MG IV (08:57)
--- NOTE | 2022-09-06 10:00 | PC.NURSE ---
oral airway removed
--- NOTE | 2022-09-06 10:05 | XRR_ITS ---
PROCEDURE INFORMATION: Exam: XR Right Knee Exam date and time: 09/06/2022 9:14 AM Age: 82 years old Clinical indication: Device placement; Joint replacement hardware; Prior surgery; Surgery date: Post-operative (0-2 days); Surgery type: Right tka; Additional info: S/P right tka TECHNIQUE: Imaging protocol: Radiologic exam of the right knee. Views: 1 or 2 views. COMPARISON: CT knee RT [facility] 08/10/2022 7:19 AM FINDINGS: Bones/joints: Metallic knee replacement is present in good position without loosening. No acute bony abnormalities are present. Soft tissues: The anterior soft tissues of the knee show is postoperative findings with subcutaneous emphysema, edema, and metallic skin jessica. XR/XR knee RT 1-2V [id number] IMPRESSION: 1. No acute findings. 2. Metallic knee replacement in good position. 3. Postoperative soft tissue changes anterior knee
--- NOTE | 2022-09-06 10:30 | PC.NURSE ---
Feeling returned below knee. Strong pedal pulses. Moves toes on command
--- NOTE | 2022-09-06 10:37 | P.OP_ITS ---
Operative Report Date of procedure: September 06, 2022 Pre-op diagnosis: Primary osteoarthritis right knee Post-op diagnosis: Primary osteoarthritis right knee Post-op findings: Severe osteoarthritis with large osteophytes and significant varus deformity Procedure done: Right total knee arthroplasty with Ramiro guidance Implants: The [place] total knee system with a size 4 triathlon beaded cruciate retaining femur right, a triathlon titanium tibial component size 4 beaded, a triathlon X3 tibial bearing CS insert size 4 X 11 mm and a beaded triathlon titanium asymmetric patella size 32 x 10 mm Specimens removed/disposition: Bone, disposed of Pathology: none sent Surgeon: Tyra Diaz Assistant Producer: [facility] technicians Anesthesia: MAC (With spinal, ASA 3, and regional preoperative block Y) Estimated blood loss (mL): 200 Tourniquet time (min): 0 IV fluids (mL): 1,000 Urine output (mL): 300 Complications: None Condition: stable Disposition: PACU (Then to floor for postoperative rehabilitation and pain management) Brief History: This is a established 82 year old female here today for right total knee arthroplasty with Ramiro guidance. Patient states she did not have a known injury, and she noted the pain started gradually over time. Patient states that the pain is of a sharp nature and throbbing. Patient states she has swelling to the knee, and the pain keeps her up at night. Patient states that the pain is to the medial knee. Patient denies while she is sitting and states weight bearing is most painful. Patient states walking, sleeping, and general movement of her knee causes her pain. Patient was supposed to have a total knee replacement in 2018; however, due to personal issues, she was not able to complete this. She presents today after further education in the office. Questions were answered and consents were signed. The patient agreed and wished to proceed with right total knee arthroplasty. Procedure: The patient was brought to the operating theater, and after undergoing spinal anesthesia with supplemental MAC, as well as an adductor canal block, ASA 3, the right lower extremity was prepped with Dura-Prep and draped in usual fashion following placement of a tourniquet high on the leg. The leg was then draped free.? Tourniquet was not elevated during the case.? A surgical pause was performed, and at the time of the surgical pause, we confirmed the site and side of surgery. Additionally, we confirmed the appropriate and timely administration of preoperative antibiotics, Ancef 2 g and Transexemic acid 1 g.? The availability of equipment was confirmed, and the patient's identity was verbalized as well.? An additional transexemic acid 1 g will be given on the floor as well. Following the surgical pause, an incision was made centering over the patella continuing proximally and distally as necessary to allow access to the knee joint. Dissection continued through skin and soft tissues using a scalpel. Hemostasis was obtained using electrocautery. The skin incision was followed by a median parapatellar arthrotomy. The leg was extended and the patella was able to be displaced laterally.? Appropriate arrays and markers were placed in appropriate position for use of the Ramiro.? Preoperative planning had been accomplished and was discussed in detail with the [facility] sales representative graphic art.? Intraoperative mapping of the femur and tibia was accomplished after the arrays were placed.? Internal markers were also placed.? Once we had accomplished the Ramiro mapping, we began the appropriate resections for placement of the prosthesis.? The plan was for a cruciate retaining right total knee arthroplasty. Once appropriate mapping had been accomplished retraction was established using manual retraction by surgical technicians and also the Ramiro leg positioner and retractors.? The knee was evaluated.? There was significant osteoarthritic change with significant osteophyte formation a significant varus deformity.? Appropriate bone resection was accomplished using the Ramiro.? The femur was sized to a size 4.? Following femoral cuts, attention was directed to the tibia.? Osteophytes were removed prior to this portion of the procedure.? We had performed a medial release at the beginning of the procedure to allow for placement of the array and to allow for better planning with flexion and extension adjustments per Ramiro programming.? Proximal tibia was evaluated, and it was felt that appropriate size for the tibia was a size 4.? Tray was noted to fit nicely with good coverage.? Rim fit was accomplished with the size 4. A trial reduction was accomplished after osteophytes have been removed as well as the medial and lateral menisci.? We had removed the anterior cruciate ligament at the beginning of the case and preserved the posterior cruciate ligament.? Trial reduction was accomplished with a size 4 femoral cruciate retaining component and a size 4 CS tibial bearing insert which was 10 mm in thickness initially.? Final insert was an 11 mm implant.? Alignment was felt to be appropriate as well.? Trial components were removed after the femur had been drilled.? Prior to removal of the tibial tray which had been pinned in position with appropriate rotation as determined by the Ramiro plan, we broached the tibia.? Subsequently, the 4 drill holes were made for the prosthetic component.? All trial components were removed, and the wound was irrigated.? Plans were made for insertion of the prosthetic components.? Prior to this, the patella was manually prepared.? After resection of the articular surface with the [employer] sy stem, it was measured and measured a 32 mm patella.? We resected approximately 10 mm of patella.? Patellar height was restored with the patellar component. Once again, the wound was irrigated.? The Tritanium tibia was impacted into position.? The beaded femur was then impacted into position in a cementless fashion. The CS tibial insert was placed prior to placement of the femoral component. The patella was pressed into position with a patellar clamp.? Exparel was injected about the components deep and superficially.? The knee was then copiously irrigated with betadine and saline and suctioned dry. Attention was then directed to closure. Closure was accomplished with 0 Vicryl in the fascial tissues.? This was followed by Surgiflo and vancomycin powder.? Following this, a 2-0 Monocryl was used in the subcutaneous tissues, and the skin was closed with skin jessica.? Care was taken to assure an excellent subcutaneous as well as skin closure.? A sterile dressing was then placed consisting of Dermabond Prineo, OpSite, sterile soft roll including over the foot, and an Dandre wrap. The patient was returned the Recovery Room in a satisfactory condition. X-rays were obtained and reviewed there.? The patient will be discharged to the floor for postoperative rehabilitation and pain management. Related Problem List Diagnoses (1) Primary osteoarthritis of right knee: (2) Varus deformity, not elsewhere classified, right knee:
[2022-09-06] MEDS: ondansetron 2 mg/ML SDV 2 mL 4 MG IVP ×2 (11:43→21:38)
--- NOTE | 2022-09-06 11:48 | PC.RESP ---
pt c/o problems taking Albuterol, has refused at this time
[2022-09-06] MEDS: oxyCODONE 5 mg IR Tab/Cap PO ×2 (12:16→21:40)
--- NOTE | 2022-09-06 14:51 | ANE.PACU2 ---
Inpatient post-anesthesia follow up: Airway intact: Yes Vital signs: Temperature 97.3 F Pulse Rate 54 Respiratory Rate 18 Blood Pressure 131/63 Pulse Oximetry 96 Oxygen Delivery Me thod Room Air Oxygen Flow Rate Fraction of Inspir ed Oxygen Hydration adequate: Yes Nausea and vomiting: No Pain level: 1 Mental status: Baseline
[2022-09-06] MEDS: albuterol 2.5 mg/3 mL Neb INHALATION ×2 (15:50→20:06)
[2022-09-06] MEDS: chlorhexidine gluconate 0.12% Btl 473 mL 30 ML MUCOUS MEM (17:46)
[2022-09-06] MEDS: calcium carbonate 500 mg Chew Tablet 1000 MG PO (17:47)
[2022-09-06] MEDS: CELEcoxib 200 mg Capsule PO (17:47)
[2022-09-06] MEDS: sennosides-docusate Tablet 2 TAB PO (17:47)
[2022-09-06] MEDS: iron polysaccharide complex 150 mg Capsule PO (17:47)
--- NOTE | 2022-09-06 18:56 | PC.NURSE ---
PATIENT HAS DONE WELL TODAY. PAIN CONTROLLED WITH ORAL PAIN MEDICATION. PATIENT GOT UP WITH THERAPY AND USED THE CPM. BP HAS BEEN GOOD TODAY. HEART RATE NOW IN THE UPPER 50'S. GOOD INTAKE AND OUTPUT. PATIENT CURRENTLY RESTING IN BED WATCHING TV.
[2022-09-06] MEDS: budesonide 0.5 mg/2 mL Neb INHALATION (20:05)
[2022-09-06] MEDS: ALPRAZolam 0.5 mg Tablet PO (21:41)
[2022-09-06] MEDS: dorzolamide 2% Op Soln 10 mL Btl 1 DROP EYE-BOTH (21:50)
[2022-09-06] MEDS: latanoprost 0.005% Op Soln 2.5 mL Btl 1 DROP EYE-BOTH (21:50)
[2022-09-07] VITALS (11 sets, daily range): BP systolic 114–153; BP diastolic 62–73; PULSE 62–74; RESP 16–17; TEMP 36.4–37.2; O2SAT 94–97
[2022-09-07] MEDS: ceFAZolin 2,000 MG in sodium chloride 0.9% (plus) 50 ML 100 MG IV ×2 (00:17→06:14)
[2022-09-07] MEDS: acetaminophen 1,000 MG/100 ML PIGGYBACK 400 MG IV ×2 (00:17→06:14)
[2022-09-07 05:23] LABS: Basophils % 0.4 %; Eosinophils # 0.3 10^3/uL (0.0-0.8); Eosinophils % 5.3 %; Hematocrit 28.5 % (37.0-47.0); Lymphocytes # 0.9 10^3/uL (0.8-4.8); Lymphocytes % 15.7 %; Mean Corpuscular HGB Conc 31.6 g/dL (30.0-36.0); Mean Corpuscular Hemoglobin 29.8 pg (28.0-34.0); Mean Corpuscular Volume 94.4 fl (81-99); Mean Platelet Volume 10.3 fL (7.4-10.4); Monocytes # 0.3 10^3/uL (0.2-0.9); Monocytes % 5.3 %; Neutrophils # 4.15 10^3/uL (1.8-7.7); Neutrophils % 73.1 %; Nucleated Red Blood Cells % 0 %; Platelet Count 108 10^3/cmm (130-400); Red Blood Count 3.02 10^6/uL (4.1-5.3); Red Cell Distribution Width 15.1 % (12.1-15.1); White Blood Count 5.7 10^3/uL (4.0-10.0)
[2022-09-07 05:45] LABS: Anion Gap 11.1 (5-19); Blood Urea Nitrogen 16 mg/dL (8-23); Calcium 8.5 mg/dL (8.5-10.5); Carbon Dioxide 24 mmol/L (22-29); Chloride 108 mmol/L (98-107); Glucose 113 mg/dL (65-115); Osmolality Calculated 290 mOsm/kg (285-295); Potassium 4.1 mmol/L (3.5-5.1); Sodium 139 mmol/L (136-145)
[2022-09-07 05:47] LABS: Creatinine Clr Calc Pharmacy 39.5479
[2022-09-07] MEDS: CELEcoxib 200 mg Capsule PO (06:14)
[2022-09-07] MEDS: albuterol 2.5 mg/3 mL Neb INHALATION ×3 (07:46→15:12)
[2022-09-07] MEDS: budesonide 0.5 mg/2 mL Neb INHALATION (07:46)
[2022-09-07] MEDS: ondansetron 2 mg/ML SDV 2 mL 4 MG IVP ×2 (08:21→14:28)
[2022-09-07] MEDS: atorvastatin 40 mg Tablet PO (08:22)
[2022-09-07] MEDS: iron polysaccharide complex 150 mg Capsule PO (08:22)
[2022-09-07] MEDS: calcium carbonate 500 mg Chew Tablet 1000 MG PO (08:22)
[2022-09-07] MEDS: clopidogrel 75 mg Tablet PO (08:23)
[2022-09-07] MEDS: multivitamin therapeutic Tablet 1 TAB PO (08:23)
[2022-09-07] MEDS: sennosides-docusate Tablet 2 TAB PO (08:23)
[2022-09-07] MEDS: cholecalciferol (vitamin D3) 1,000 unit Tablet 1000 UNIT PO (08:23)
[2022-09-07] MEDS: levothyroxine 75 mcg Tablet PO (08:24)
[2022-09-07] MEDS: aspirin 325 mg EC Tablet PO (08:24)
[2022-09-07] MEDS: hydroCHLOROthiazide 25 mg Tablet PO (08:24)
[2022-09-07] MEDS: losartan 50 mg Tablet 100 MG PO (08:25)
[2022-09-07] MEDS: amlodipine 10 mg Tablet PO (08:25)
[2022-09-07] MEDS: potassium chloride ER 10 mEq Tablet PO (08:25)
[2022-09-07] MEDS: carvedilol 12.5 mg Tablet PO (08:25)
[2022-09-07] MEDS: sertraline 100 mg Tablet PO (08:28)
[2022-09-07] MEDS: estradiol 1 mg Tablet PO (08:28)
[2022-09-07] MEDS: dorzolamide 2% Op Soln 10 mL Btl 1 DROP EYE-BOTH (08:29)
[2022-09-07] MEDS: chlorhexidine gluconate 0.12% Btl 473 mL 30 ML MUCOUS MEM ×2 (08:29→14:28)
[2022-09-07] MEDS: mupirocin oint 22 gm 1 APPLIC NASAL (08:29)
[2022-09-07] MEDS: oxyCODONE 5 mg IR Tab/Cap PO ×2 (10:38→14:27)
--- NOTE | 2022-09-07 13:24 | P.DS_ITS ---
Discharge Providers Date of Admission: 09/06/22 10:42 Date of Discharge: September 07, 2022 Attending Provider at Admission: Tyra Diaz MD Attending Provider at Discharge: Tyra Diaz MD Primary Care Provider: Ching Varma DO Diagnoses at Discharge Discharge Diagnosis (1) Status post total right knee replacement not using cement: Details from hospital stay: Date of procedure: September 06, 2022 Diagnosis: Primary osteoarthritis right knee with varus deformity Procedure done: Right total knee arthroplasty with Ramiro guidance Implants: The [place] total knee system with a size 4 triathlon beaded cruciate retaining femur right, a triathlon titanium tibial component size 4 beaded, a triathlon X3 tibial bearing CS insert size 4 X 11 mm and a beaded triathlon titanium asymmetric patella size 32 x 10 mm Status: Acute (2) Primary osteoarthritis of right knee: Status: Acute (3) Varus deformity, not elsewhere classified, right knee: Status: Acute Reason for Visit Reason for Visit: M17.10 Brief History: This is a established 82 year old female here today for right total knee arthroplasty with Ramiro guidance. Patient states she did not have a known injury, and she noted the pain started gradually over time. Patient states that the pain is of a sharp nature and throbbing. Patient states she has swelling to the knee, and the pain keeps her up at night. Patient states that the pain is to the medial knee. Patient denies while she is sitting and states weight bearing is most painful. Patient states walking, sleeping, and general movement of her knee causes her pain. Patient was supposed to have a total knee replacement in 2018; however, due to personal issues, she was not able to complete this.? She presents today after further education in the office.? Questions were answered and consents were signed.? The patient agreed and wished to proceed with right total knee arthroplasty. Hospital Course Hospital Course The patient was admitted to hospital under observation status following same-day surgery for right total knee arthroplasty. She tolerated the procedure well. Postoperative physical therapy was well-tolerated. The patient was ambulating independently. Large outer wrap was removed, there was minimal to no swelling or ecchymosis. Her wound remained covered with no drainage apparent on the dressing. Plan to that the patient will be discharged home with home physical therapy. She is in agreement with this plan. Physical Exam Const: COMMON NORMALS: no acute distress, average body habitus, patient oriented x3 and alert GENERAL APPEARANCE: cooperative and comfortable ORIENTATION/CONSCIOUSNESS: Yes awake HENMT: COMMON NORMALS: normocephalic and atraumatic HEAD & SCALP: normocephalic and atraumatic Eye: GENERAL EYE: appearance normal, both eyes and all related structures Chest: COMMONS NORMALS: normal inspection of the chest Resp: COMMON NORMALS: normal respiratory effort EFFORT & INSPECTION: Yes able to speak in complete sentences and Yes symmetric chest movement Extremity: RIGHT LOWER EXTREMITY: Yes knee joint (Large outer dressing is removed, OpSite remains) Right knee: Yes inspection (No significant swelling or ecchymosis.) and Yes neurovascular exam (Intact) Neuro: COMMON NORMALS: patient oriented x3 SENSORIUM/ORIENTATION: Yes alert Psych: COMMON NORMALS: mental status grossly normal APPEARANCE: Yes grossly normal ATTITUDE: Yes calm and Yes engaged ATTENTION/CONCENTRATION: Yes attention grossly intact Skin: COMMON NORMALS: no rashes or lesions noted GENERAL SKIN EXAM: no rashes or lesions noted Urinary Catheter Management: Carrera: Cath Placed During This Visit: yes, but has since been removed by the nurse Reason for Continuing Indwelling Catheter: Perioperative Use in Selected Surgeries Urinary Catheter Date of Insertion: 09/06/22 Urinary Catheter Time of Insertion: 07:20 Date Urinary Catheter Removed: 09/07/22 Time Urinary Catheter Discontinued: 06:36 Discharge Data Studies Completed and Pending Completed Studies During Hospitalization Category Date Time Status XR knee RT 1-2V [id number] Routine Exams 09/06/22 10:05 Completed Radiology Impressions Knee X-Ray 09/06/22 10:05 IMPRESSION: 1. No acute findings. 2. Metallic knee replacement in good position. 3. Postoperative soft tissue changes anterior knee Laboratory Results WBC 5.7 10^3/uL (4.0-10.0) 09/07/22 05:08 RBC 3.02 10^6/uL (4.1-5.3) L 09/07/22 05:08 Hgb 9.0 g/dL (11.5-15.3) L 09/07/22 05:08 Hct 28.5 % (37.0-47.0) L 09/07/22 05:08 MCV 94.4 fl (81-99) 09/07/22 05:08 MCH 29.8 pg (28.0-34.0) 09/07/22 05:08 MCHC 31.6 g/dL (30.0-36.0) 09/07/22 05:08 RDW 15.1 % (12.1-15.1) 09/07/22 05:08 Plt Count 108 10^3/cmm (130-400) L 09/07/22 05:08 MPV 10.3 fL (7.4-10.4) 09/07/22 05:08 Neut % (Auto) 73.1 % 09/07/22 05:08 Lymph % (Auto) 15.7 % 09/07/22 05:08 [place] % (Auto) 5.3 % 09/07/22 05:08 Eos % (Auto) 5.3 % 09/07/22 05:08 Baso % (Auto) 0.4 % 09/07/22 05:08 Neut # (Auto) 4.15 10^3/uL (1.8-7.7) 09/07/22 05:08 Lymph # (Auto) 0.9 10^3/uL (0.8-4.8) 09/07/22 05:08 [place] # (Auto) 0.3 10^3/uL (0.2-0.9) 09/07/22 05:08 Eos # (Auto) 0.3 10^3/uL (0.0-0.8) 09/07/22 05:08 Baso # (Auto) 0.0 10^3/uL (0.0-0.1) 09/07/22 05:08 Nucleated RBC % (auto) 0 % 09/07/22 05:08 Nucleated RBCs # 0.0 /100WBC 09/07/22 05:08 Sodium 139 mmol/L (136-145) 09/07/22 05:08 Potassium 4.1 mmol/L (3.5-5.1) 09/07/22 05:08 Chloride 108 mmol/L (98-107) H 09/07/22 05:08 Carbon Dioxide 24 mmol/L (22-29) 09/07/22 05:08 Anion Gap 11.1 (5-19) 09/07/22 05:08 BUN 16 mg/dL (8-23) 09/07/22 05:08 Creatinine 1.1 mg/dL (0.5-0.9) H 09/07/22 05:08 GFR Calculation Not Reportable 09/07/22 05:08 Glucose 113 mg/dL (65-115) 09/07/22 05:08 Calculated Osmolality 290 mOsm/kg (285-295) 09/07/22 05:08 Calcium 8.5 mg/dL (8.5-10.5) 09/07/22 05:08 Total Bilirubin 0.3 mg/dL (0.15-1.2) 08/30/22 13:50 AST 17 U/L (0-32) 08/30/22 13:50 ALT 27 U/L (0-33) 08/30/22 13:50 Alkaline Phosphatase 52 U/L (35-105) 08/30/22 13:50 Total Protein 6.2 g/dL (6.6-8.7) L 08/30/22 13:50 Albumin 4.0 g/dL (3.5-5.2) 08/30/22 13:50 Globulin 2.2 g/dL (1.3-4.6) 08/30/22 13:50 Urine Color Yellow (Yellow) 08/30/22 13:52 Urine Appearance Clear (CLEAR) 08/30/22 13:52 Urine pH 8 (5-7) H 08/30/22 13:52 Ur Specific [place] 1.015 (1.005-1.030) 08/30/22 13:52 Urine Protein Neg (Negative) 08/30/22 13:52 Urine Glucose (UA) Norm (Normal) 08/30/22 13:52 Urine Ketones Negative (Negative) 08/30/22 13:52 Urine Blood Neg (Negative) 08/30/22 13:52 Urine Nitrate Negative (Negative) 08/30/22 13:52 Urine Bilirubin Neg (Negative) 08/30/22 13:52 Prot Sulfosalicylic Acd Negative (Negative) 08/30/22 13:52 Urine Urobilinogen Norm mg/dL (Negative) 08/30/22 13:52 Ur Leukocyte Esterase Negative (Negative) 08/30/22 13:52 Vitals Last Vital Signs Temp 97.6 F 09/07/22 12:00 Pulse 62 09/07/22 12:00 Resp 17 09/07/22 12:00 BP 153/73 09/07/22 12:00 Pulse Ox 95 09/07/22 12:00 O2 Del Method Room Air 09/07/22 11:20 Discharge Plan Discharge Patient Disposition: Home Health Service Condition: Stable Prescriptions: New acetaminophen 500 mg Tablet 1,000 mg PO Q8H 15 Days Qty: 90 0RF aspirin 325 mg Tablet,Delayed Release (Dr/Ec) 325 mg PO DAILY 30 Days Qty: 30 0RF oxycodone 5 mg Tablet 5 mg PO Q4H PRN (Reason: Moderate Pain) 7 Days Qty: 30 0RF Continued estradiol 1 mg tablet 1 mg PO DAILY@0800 losartan 100 mg tablet 100 mg PO DAILY@0800 sertraline [Zoloft] 100 mg tablet 100 mg PO DAILY@0800 levothyroxine 75 mcg capsule 75 mcg PO DAILY@0800 ferrous sulfate 250 mg (50 mg iron) tablet extended release 325 mg PO DAILY@0800 apple cider vinegar 500 mg tablet See Rx Instructions PO .COMPLEX Rx Instructions: 1tab PO qd dorzolamide 2 % drops 1 drp ophthalmic (eye) TID Rx Instructions: BOTH EYES (DME) Custome Insoles See Rx Instructions .Route .MEDSUPPLY Qty: 1 0RF Rx Instructions: As directed cyanocobalamin (vitamin B-12) 100 mcg tablet 100 mcg PO DAILY omega 2-nsf-rsl-fish oil [Fish Oil] 300-1,000 mg capsule 1 cap PO DAILY carvedilol 12.5 mg tablet 12.5 mg PO BID 30 Days Qty: 60 5RF Rx Instructions: must administer with a meal/food Advair HFA 45-21 mcg/actuation HFA aerosol inhaler 2 puff inhalation BID Qty: 12 0RF Rx Instructions: NEEDS APPT PRIOR TO FURTHER REFILLS latanoprost 0.005 % drops See Rx Instructions .ROUTE .COMPLEX Rx Instructions: USE DIRECTED 08,1999 clonidine HCl 0.1 mg tablet 0.1 mg PO PRN PRN (Reason: Blood Pressure) potassium chloride 10 mEq Tablet Extended Release 10 meq PO DAILY@0800 alprazolam 0.5 mg tablet 0.5 mg PO BEDTIME ascorbic acid (vitamin C) [Vitamin C] 500 mg Capsule, Extended Release 500 mg PO DAILY Qty: 0 hydrochlorothiazide 25 mg tablet 25 mg PO DAILY@0800 PreserVision AREDS-2 250-90-40-1 mg Capsule 1 tab PO BID Qty: 0 amlodipine 10 mg tablet 10 mg PO DAILY@0800 clopidogrel [Plavix] 75 mg tablet 75 mg PO DAILY Qty: 30 0RF atorvastatin [Lipitor] 40 mg tablet 40 mg PO DAILY Qty: 30 0RF zinc acetate 50 mg (zinc) Capsule 50 mg PO DAILY magnesium 500 mg PO DAILY Singulair 10 mg Tablet 10 mg PO DAILY No Action ondansetron HCl 4 mg tablet 4 mg PO Q6H 7 Days Qty: 28 0RF Rx Instructions: Take 1 tablet every 6 hours as needed for nausea Discharge Orders: Discharge Order (Routine); Ordered 09/07/22 Ordered By: Tyra Diaz Other Ambulatory Orders: DME: [employer] (Order) Location: None Selected Ordered By: Tyra Diaz Referrals: Tyra Diaz MD [Physician] - 09/20/22 9:45 am Discharge Diet: Advance as tolerated and Usual diet Discharge Activity: Increase activity as tolerated, Limit activity as instructed, Use walker/crutches as instructed and As per PT/OT instructions Patient Instructions: Aspirin (By mouth), Oxycodone, Rapid Release (By mouth), Precautions after Total Joint Replacement Surgery (GEN), Knee Replacement (GEN), Joint Replacement Stoplight, Opioid Safety Activity Restrictions/Additional Instructions: Ice and elevate. You may shower, but keep clear plastic dressing in place. Range of motion, gait training, and strengthening per home health. Discharge Attestations Time Spent in Discharge Care*: greater than 30 min Specific Discharge Activities: educating patient, documenting/other paperwork and evaluating patient/reviewing data Status at Discharge: Cognitive status at discharge: cognitively intact , Behavioral status at discharge: cooperative , Quality Metrics Clinical Quality Measures [ No reported AMI, CVA or VTE this stay] Coding Level of Care Code Acute Code for Chg Fwd Diagnoses Status post total right knee replacement not using cement Z96.651 Primary osteoarthritis of right knee M17.11 Varus deformity, not elsewhere classified, right knee M21.161
[2022-09-07] MEDS: acetaminophen 500 mg Tablet 1000 MG PO (14:27)
--- NOTE | 2022-09-07 16:21 | PC.NURSE ---
Discussed discharge with patient and family members. Discussed follow up appointment, new medications, continued medication and stop light education. Verbalized understanding. Patient waiting on a bedside commode and a message sent to Dr. Diaz about bry, waiting to hear back.
--- NOTE | 2022-09-07 17:09 | PC.NURSE ---
waited on zofran order from Dr. Diaz and a Bedside commode from Home to be delivered.
== END 2022-09-07 17:05 | disposition home health service (06) ==
LOC: MEDSURG 10:43
PROVIDERS: Admitting Provider Specialist; PCP Family Medicine; Visit Provider Specialist
PROC: 8E0Y0CZ Robotic Assisted Procedure of Lower Extremity, Open Approach (ICD-10-PCS; CPT 27447; principal; 2022-09-06 07:00)
DX: M17.11 Unilateral primary osteoarthritis, right knee (principal); M25.761 Osteophyte, right knee; M21.161 Varus deformity, not elsewhere classified, right knee; I10 Essential (primary) hypertension; E03.9 Hypothyroidism, unspecified; J44.9 Chronic obstructive pulmonary disease, unspecified; I45.10 Unspecified right bundle-branch block; Z79.899 Other long term (current) drug therapy; Z87.891 Personal history of nicotine dependence; Z86.73 Personal history of transient ischemic attack (TIA), and cerebral infarction without residual deficits
CPT/HCPCS: 27447; 36415; 51702; 73560; 80048; 80053; 81003; 85025; 94640; 97110; 97116; 97161; 97165; C1713; C1776; C9290; G0378; J0131; J0690; J2405; J2704; J2795; J3370; J3490; J7030; J7613; J7626; J8499

== ENCOUNTER → 2022-09-21 10:06 | Outpatient (BNVA) | payer MEDICARE, MEDICAID, SELFPAY | PROVIDERS: PCP Family Medicine; Visit Provider Nurse Practitioner Family | DX: Z96.651 Presence of right artificial knee joint (principal) | CPT/HCPCS: 73560; 73565; 99024 ==

== ENCOUNTER → 2022-10-19 13:07 | Outpatient (BNVA) | payer MEDICARE, MEDICAID, SELFPAY | PROVIDERS: Visit Provider Specialist | DX: Z96.651 Presence of right artificial knee joint (principal); M21.161 Varus deformity, not elsewhere classified, right knee; M17.11 Unilateral primary osteoarthritis, right knee | CPT/HCPCS: 73560; 73565; 99024 ==

== ENCOUNTER 2022-10-20 09:21 | Outpatient (RCR) | payer MEDICARE, MEDICAID, SELFPAY | END 2022-10-28 23:59 | disposition home or self-care (01) | LOC: SPT 09:21 | PROVIDERS: PCP Family Medicine; Visit Provider Specialist | DX: Z47.1 Aftercare following joint replacement surgery (principal); Z96.651 Presence of right artificial knee joint | CPT/HCPCS: 97110; 97161 ==

== ENCOUNTER 2022-10-29 06:00 | Outpatient (RCR) | payer MEDICARE, MEDICAID, SELFPAY | END 2022-11-28 23:59 | disposition home or self-care (01) | LOC: SPT 06:00 | PROVIDERS: PCP Family Medicine; Visit Provider Specialist | DX: Z47.1 Aftercare following joint replacement surgery (principal); Z96.651 Presence of right artificial knee joint | CPT/HCPCS: 97110 ==

== ENCOUNTER → 2022-11-23 13:08 | Outpatient (BNVA) | payer MEDICARE, MEDICAID, SELFPAY | PROVIDERS: PCP Family Medicine; Visit Provider Specialist | DX: Z96.651 Presence of right artificial knee joint (principal); M17.11 Unilateral primary osteoarthritis, right knee; M21.161 Varus deformity, not elsewhere classified, right knee | CPT/HCPCS: 73560; 73565; 99024 ==

== ENCOUNTER 2022-11-29 06:00 | Outpatient (RCR) | payer MEDICARE, MEDICAID, SELFPAY | END 2022-12-29 23:59 | disposition home or self-care (01) | LOC: SPT 06:00 | PROVIDERS: PCP Family Medicine; Visit Provider Specialist | DX: Z47.1 Aftercare following joint replacement surgery (principal); Z96.651 Presence of right artificial knee joint | CPT/HCPCS: 97110 ==

== ENCOUNTER → 2023-02-22 16:20 | Outpatient (BNVA) | payer MEDICARE, MEDICAID, SELFPAY | PROVIDERS: PCP Family Medicine; Visit Provider Specialist | DX: Z96.651 Presence of right artificial knee joint (principal) | CPT/HCPCS: 73560; 73565; 99213 ==

== ENCOUNTER 2023-04-10 16:25 | Observation (INO) | payer MEDICARE, MEDICAID, SELFPAY ==
[2023-04-10 16:26] VITALS: BMI 25.7
[2023-04-10 16:31] VITALS: BP 155/72; PULSE 65; RESP 16; TEMP 37.1; O2SAT 95
--- NOTE | 2023-04-10 16:43 | CTR_ITS ---
PROCEDURE INFORMATION: Exam: CT Head Without Contrast Exam date and time: 04/10/2023 5:13 PM Age: 82 years old Clinical indication: Dizziness TECHNIQUE: Imaging protocol: Computed tomography of the head without contrast. Radiation optimization: All CT scans at this facility use at least one of these dose optimization techniques: automated exposure control; mA and/or kV adjustment per patient size (includes targeted exams where dose is matched to clinical indication); or iterative reconstruction. REPORTING DATA: Count of CT and Cardiac NM exams in prior 12 months: This patient has received [address] and 0 known cardiac nuclear medicine studies in the 12 months prior to the current study. COMPARISON: CT angio headneck* [id number] 06/18/2020 1:29 PM RADIATION DOSE METRICS: Total DLP (mGy-cm): 288 FINDINGS: Brain: Mild parenchymal volume loss. Mild bilateral periventricular and subcortical white matter hypodensities are present compatible with small-vessel ischemic disease. No midline shift. No mass, acute infarct, hemorrhage, or extra-axial fluid collection. Cerebral ventricles: No ventriculomegaly. Paranasal sinuses: Visualized sinuses are unremarkable. No fluid levels. Mastoid air cells: Visualized mastoid air cells are well aerated. Bones/joints: Unremarkable. No acute fracture. Soft tissues: Unremarkable. CT/CT head wo con* [id number] IMPRESSION: No acute intracranial abnormality.
--- NOTE | 2023-04-10 16:43 | XRR_ITS ---
PROCEDURE INFORMATION: Exam: XR Chest Exam date and time: 04/10/2023 5:29 PM Age: 82 years old Clinical indication: Other: Dizzy TECHNIQUE: Imaging protocol: Radiologic exam of the chest. Views: 1 view. COMPARISON: CR XR chest 2V* [id number] 08/18/2022 12:39 PM FINDINGS: Lungs: Unremarkable. No consolidation. Pleural spaces: Unremarkable. No pleural effusion. No pneumothorax. Heart/Mediastinum: Unremarkable. No cardiomegaly. Bones/joints: Unremarkable. XR/XR chest 1V portable [id number] IMPRESSION: No acute findings.
--- NOTE | 2023-04-10 16:44 | ECG_ITS ---
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 Measurements Intervals Spencer Rate: 58 P: 52 HI: 160 QRS: 54 QRSD: 126 T: 34 QT: 424 QTc: 420 Interpretive Statements SINUS BRADYCARDIA INDETERMINATE AXIS POSSIBLE RIGHT VENTRICULAR CONDUCTION DELAY [RSR (QR) IN V1/V2] SEPTAL MYOCARDIAL INFARCTION , OF INDETERMINATE AGE [40+ ms Q WAVE IN V1/V2] Compared to ECG 08/30/2022 14:15:54 Indeterminate axis now present Bradycardia, nonsinus no longer present Incomplete right bundle-branch block no longer present Atrial abnormality no longer present Myocardial infarct finding still present Electronically Signed On 04-11-2023 8:16:43 INSURANCE SALES EXECUTIVE by Les Rocha M.D. [email or web address]
--- NOTE | 2023-04-10 16:49 | ED_ITS ---
HPI - Dizziness 2 General: Chief Complaint: Dizziness Stated Complaint: dizziness Time Seen by Provider: 04/10/23 16:27 Source: patient Mode of arrival: ambulatory Limitations: no limitations History of Present Illness: HPI Narrative: 82-year-old female states that she has h ad dizziness all day. States she went to bed last night at 930 and since waking up she has had severe dizziness. She states she just feels like the room spinning states anytime she tries to ambulate she is having a hard time walking with ataxia she has had nausea as well. She denies any headache no other neurodeficits. Associated symptoms: Denies chest pain, chills, headache(s), nausea or vomiting Review of Systems 2 Const: Denies: fever(s), chills, body aches or change in appetite Eyes: Denies: blurry vision or eye discomfort ENMT: Denies: throat pain or dental pain Card: Denies: chest pain Resp: Denies: dyspnea GI: Denies: abdominal pain, nausea, vomiting or diarrhea : Denies: dysuria Musc: Denies: neck pain or back pain Skin/Breast: Denies: rash Neuro: Reports: dizziness; Denies: headache(s) Psych: Denies: depression PFSH ED 2 PFSH: Medical History History of nonmelanoma skin cancer COPD (chronic obstructive pulmonary disease) History of asthma Hypothyroidism TIA (transient ischemic attack) Hypertension, uncontrolled Headache Hypertension CVA (cerebral vascular accident) High cholesterol Depression Surgical History Hx of bilateral oophorectomy Hx of hysterectomy History of hand surgery Hx of cataract extraction Hx of bladder repair surgery Family History Father Diabetes Stroke CAD (coronary artery disease) Mother CAD (coronary artery disease) Myocardial infarct Brother CAD (coronary artery disease) Other Cancer Clotting disorder Hypertension Denies family history of Dementia Hyperlipidemia Psychiatric illness Chronic kidney disease (CKD) Suicide Anesthesia complication Bleeding disorder Family history of premature coronary artery disease Lung disease Social History Smoking and tobacco/nicotine status: former use of tobacco/nicotine Quit status (tobacco/nicotine): has quit using Year quit tobacco: age 33 Former quit date comment: less than 1ppd x 17 years Alcohol intake: never Substance/Drug Use: never Lives independently: Yes Household members: none Marital status: Legally Physical Exam 2 Const: COMMON NORMALS: no acute distress, patient oriented x3 and healthy appearing HENMT: COMMON NORMALS: normocephalic and atraumatic HEAD & SCALP: n ormocephalic and atraumatic Neck/C-Spine: COMMON NORMALS: full ROM and supple Chest: COMMONS NORMALS: normal inspection of the chest and normal palpation of entire chest wall Resp: COMMON NORMALS: normal respiratory effort, No retractions, No use of accessory muscles and clear to auscultation bilaterally AUSCULTATION: clear to auscultation bilaterally Cardio: COMMON NORMALS: regular rate, regular rhythm and No murmurs present (Cardio) RATE: regular rate RHYTHM: regular rhythm GI: COMMON NORMALS: Normal to inspection, nondistended, normoactive bowel sounds present, Soft to palpation, non-tender and no masses PALPATION: Yes Soft to palpation Extremity: COMMON NORMALS: normal to inspection and full ROM Neuro: COMMON NORMALS: patient oriented x3, moves all extremities and no focal motor deficits CRANIAL NERVES: Yes CN normal except as noted SPEECH: s peech normal MOTOR EXAM: 5/5 motor strength present throughout Psych: COMMON NORMALS: mental status grossly normal, Normal thought process present and cooperative THOUGHT PROCESS: Normal thought process present Skin: COMMON NORMALS: no rashes or lesions noted and no wounds GENERAL SKIN EXAM: no rashes or lesions noted Course 2 Vital Signs: Vital signs: Vital Signs Temperature 98.8 F 04/10/23 16:31 Pulse Rate 65 04/10/23 16:31 Respiratory Rate 16 04/10/23 16:31 Blood Pressure 155/72 04/10/23 16:31 Pulse Oximetry 95 04/10/23 16:31 Oxygen Delivery Me thod Room Air 04/10/23 16:31 MDM - Dizziness Medical Decision Making Patient presents here with dizziness did give her Antivert she still having ataxia when she tries to ambulate and feeling extremely dizzy head CT was normal her last known well was last night she is not on any treatment window will admit at this time for observation to rule out a posterior stroke Medical Records I reviewed the patient's medical records. Lab Data I reviewed the patient's lab results. 04/10/23 17:10 04/10/23 17:[address] 04/10/23 16:43 IMPRESSION: No acute intracranial abnormality. Laboratory Results WBC 5.79 10^3/uL (3.29-11.43) 04/10/23 17:10 RBC 3.86 10^6/uL (3.85-5.65) 04/10/23 17:10 Hgb 11.80 g/dL (11.27-16.99) 04/10/23 17:10 Hct 36.0 % (36-47) 04/10/23 17:10 MCV 93.3 fl (85-98) 04/10/23 17:10 MCH 30.6 pg (27-33) 04/10/23 17:10 MCHC 32.8 g/dL (30-55) 04/10/23 17:10 RDW 13.8 % (12.1-15.1) 04/10/23 17:10 Plt Count 182 10^3/cmm (157-399) 04/10/23 17:10 MPV 10.1 fL (7.4-10.4) 04/10/23 17:10 Neut % (Auto) 69.5 % 04/10/23 17:10 Lymph % (Auto) 22.8 % 04/10/23 17:10 Bandera % (Auto) 5.4 % 04/10/23 17:10 Eos % (Auto) 1.4 % 04/10/23 17:10 Baso % (Auto) 0.7 % 04/10/23 17:10 Neut # (Auto) 4.03 10^3/uL (1.8-7.7) 04/10/23 17:10 Lymph # (Auto) 1.3 10^3/uL (0.8-4.8) 04/10/23 17:10 Bandera # (Auto) 0.3 10^3/uL (0.2-0.9) 04/10/23 17:10 Eos # (Auto) 0.1 10^3/uL (0.0-0.8) 04/10/23 17:10 Baso # (Auto) 0.0 10^3/uL (0.0-0.1) 04/10/23 17:10 Nucleated RBC % (auto) 0 % 04/10/23 17:10 Nucleated RBCs # 0.0 /100WBC 04/10/23 17:10 PT 14.20 SECONDS (12.1-14.9) 04/10/23 17:10 INR 1.07 (0.8-1.2) 04/10/23 17:10 Sodium 137 mmol/L (136-145) 04/10/23 17:10 Potassium 3.8 mmol/L (3.5-5.1) 04/10/23 17:10 Chloride 104 mmol/L (98-107) 04/10/23 17:10 Carbon Dioxide 23 mmol/L (22-29) 04/10/23 17:10 Anion Gap 13.8 (5-19) 04/10/23 17:10 BUN 18 mg/dL (8-23) 04/10/23 17:10 Creatinine 0.8 mg/dL (0.5-0.9) 04/10/23 17:10 GFR Calculation Not Reportable 04/10/23 17:10 Glucose 111 mg/dL (65-115) 04/10/23 17:10 Calculated Osmolality 287 mOsm/kg (285-295) 04/10/23 17:10 Calcium 8.9 mg/dL (8.5-10.5) 04/10/23 17:10 Total Bilirubin 0.5 mg/dL (0.15-1.2) 04/10/23 17:10 AST 15 U/L (0-32) 04/10/23 17:10 ALT 13 U/L (0-33) 04/10/23 17:10 Alkaline Phosphatase 54 U/L (35-105) 04/10/23 17:10 Total Protein 6.6 g/dL (6.6-8.7) 04/10/23 17:10 Albumin 4.1 g/dL (3.5-5.2) 04/10/23 17:10 Globulin 2.5 g/dL (1.3-4.6) 04/10/23 17:10 All radiology interpretation(s) finalized by discharge EKG Data EKG 1: I personally reviewed and interpreted this EKG as follows: EKG interpretation date: 04/10/23 EKG interpretation time: 16:54 Interpretation: sinusbrady hr [address] or t wave abnormalities qrs 126 qtc 422 Discharge Plan Discharge Patient Disposition: Placed in Observation Clinical Impression: Vertigo Condition: Stable Prescriptions: No Action estradiol 1 mg tablet 1 mg PO DAILY@0800 losartan 100 mg tablet 100 mg PO DAILY@0800 sertraline [Zoloft] 100 mg tablet 100 mg PO DAILY@0800 levothyroxine 75 mcg capsule 75 mcg PO DAILY@0800 ferrous sulfate 250 mg (50 mg iron) tablet extended release 325 mg PO DAILY@0800 apple cider vinegar 500 mg tablet See Rx Instructions PO .COMPLEX Rx Instructions: 1tab PO qd dorzolamide 2 % drops 1 drp ophthalmic (eye) TID Rx Instructions: BOTH EYES (DME) Custome Insoles See Rx Instructions .Route .MEDSUPPLY Qty: 1 0RF Rx Instructions: As directed cyanocobalamin (vitamin B-12) 100 mcg tablet 100 mcg PO DAILY omega 9-vkr-bfq-fish oil [Fish Oil] 300-1,000 mg capsule 1 cap PO DAILY carvedilol 12.5 mg tablet 12.5 mg PO BID 30 Days Qty: 60 5RF Rx Instructions: must administer with a meal/food ondansetron 4 mg tablet,disintegrating See Rx Instructions .ROUTE .COMPLEX Qty: 30 0RF Dose Instruction: TAKE 1 TABLET BY MOUTH EVERY SIX HOURS NEEDED FOR NAUSEA Rx Instructions: TAKE 1 TABLET BY MOUTH EVERY SIX HOURS NEEDED FOR NAUSEA ondansetron HCl 4 mg tablet 4 mg PO Q6H 7 Days Qty: 28 0RF Rx Instructions: Take 1 tablet every 6 hours as needed for nausea oxycodone 5 mg tablet 5 mg PO Q4H PRN (Reason: Moderate Pain) 7 Days Qty: 30 0RF Advair HFA 45-21 mcg/actuation HFA aerosol inhaler 2 puff inhalation BID Qty: 12 0RF Rx Instructions: NEEDS APPT PRIOR TO FURTHER REFILLS latanoprost 0.005 % drops See Rx Instructions .ROUTE .COMPLEX Rx Instructions: USE DIRECTED 799,1999 clonidine HCl 0.1 mg tablet 0.1 mg PO PRN PRN (Reason: Blood Pressure) potassium chloride 10 mEq Tablet Extended Release 10 meq PO DAILY@0800 alprazolam 0.5 mg tablet 0.5 mg PO BEDTIME ascorbic acid (vitamin C) [Vitamin C] 500 mg Capsule, Extended Release 500 mg PO DAILY Qty: 0 hydrochlorothiazide 25 mg tablet 25 mg PO DAILY@0800 PreserVision AREDS-2 250-90-40-1 mg Capsule 1 tab PO BID Qty: 0 amlodipine 10 mg tablet 10 mg PO DAILY@0800 clopidogrel [Plavix] 75 mg tablet 75 mg PO DAILY Qty: 30 0RF atorvastatin [Lipitor] 40 mg tablet 40 mg PO DAILY Qty: 30 0RF zinc acetate 50 mg (zinc) Capsule 50 mg PO DAILY magnesium 500 mg PO DAILY Singulair 10 mg Tablet 10 mg PO DAILY Referrals: Ching Varma DO [Primary Care Provider] - Coding Level of Care Code ED Lithographic Photographer Apprentice for José Manuel Tavarez
[2023-04-10] MEDS: meclizine 25 mg tablet 50 MG PO (16:56)
[2023-04-10] MEDS: ondansetron 2 mg/ML SDV 2 mL 4 MG IVP (16:56)
[2023-04-10 17:56] LABS: Basophils % 0.7 %; Eosinophils # 0.1 10^3/uL (0.0-0.8); Eosinophils % 1.4 %; Lymphocytes # 1.3 10^3/uL (0.8-4.8); Lymphocytes % 22.8 %; Mean Corpuscular HGB Conc 32.8 g/dL (30-55); Mean Corpuscular Hemoglobin 30.6 pg (27-33); Mean Corpuscular Volume 93.3 fl (85-98); Mean Platelet Volume 10.1 fL (7.4-10.4); Monocytes # 0.3 10^3/uL (0.2-0.9); Monocytes % 5.4 %; Neutrophils # 4.03 10^3/uL (1.8-7.7); Neutrophils % 69.5 %; Nucleated Red Blood Cells % 0 %; Platelet Count 182 10^3/cmm (157-399); Red Blood Count 3.86 10^6/uL (3.85-5.65); Red Cell Distribution Width 13.8 % (12.1-15.1); White Blood Count 5.79 10^3/uL (3.29-11.43)
[2023-04-10 18:15] LABS: Alanine Aminotransferase 13 U/L (0-33); Albumin Level 4.1 g/dL (3.5-5.2); Alkaline Phosphatase 54 U/L (35-105); Anion Gap 13.8 (5-19); Aspartate Amino Transferase 15 U/L (0-32); Blood Urea Nitrogen 18 mg/dL (8-23); Calcium 8.9 mg/dL (8.5-10.5); Carbon Dioxide 23 mmol/L (22-29); Chloride 104 mmol/L (98-107); Creatinine Clr Calc Pharmacy 53.1565; Globulin 2.5 g/dL (1.3-4.6); Glucose 111 mg/dL (65-115); Osmolality Calculated 287 mOsm/kg (285-295); Potassium 3.8 mmol/L (3.5-5.1); Sodium 137 mmol/L (136-145); Total Bilirubin 0.5 mg/dL (0.15-1.2); Total Protein 6.6 g/dL (6.6-8.7)
[2023-04-10 18:16] LABS: INR 1.07 (0.8-1.2)
[2023-04-10] MEDS: aspirin 81 mg Chew Tablet 324 MG PO (18:20)
[2023-04-10 19:02] VITALS: BP 143/60; PULSE 60; RESP 15; O2SAT 98
[2023-04-10 20:01] VITALS: BP 143/60; PULSE 60; RESP 15; O2SAT 98
[2023-04-10 20:11] VITALS: BMI 26.6
--- NOTE | 2023-04-10 21:52 | P.HP_ITS ---
Providers/Chief Complaint 2 Admitting Physician: Stanislav Palm MD Primary Care Provider: Ching Varma DO Chief Complaint: dizziness History of Present Illness Migdalia Serrano is a 82 year old female with a past medical history significant for cerebrovascular accidents with right homonymous hemianopsia, hypertension, and asthma/COPD who presents with intractable vertigo x 1 day. Patient states she was in her usual state of health until about 8 AM this morning when she developed severe vertigo and dizziness. She states she is unable to walk due to the symptoms. Reports exertion worsens symptoms. Lying in bed without exertion improved the symptoms. She endorses associated nausea and vomiting. Patient denies headache. She denies recent URI symptoms. Patient denies slurred speech. Denies facial droop. She reports she normally walks unassisted so this is a big change in her functional status. Patient reports a history of 2 prior strokes. She states in 2003 she developed a stroke that left her with right, numbness hemianopsia after starting Effexor. She states just over couple years ago she again had a small stroke. She is on multiple blood pressure medications, statin, and Plavix. She endorses compliance with her medication. Review of Systems 2 Narrative: A complete review of systems was obtained and is negative except as stated in HPI. Medications/Allergies Home Medications Medication Instructions Recorded Confirmed Last Taken Type estradiol 1 mg tablet 1 mg PO DAILY@0800 02/10/20 02/22/23 1 Day Ago History ~09/05/22 levothyroxine 75 mcg capsule 75 mcg PO DAILY@0800 02/10/20 02/22/23 09/06/22 04:30 History losartan 100 mg tablet 100 mg PO DAILY@0800 02/10/20 02/22/23 1 Day Ago History ~09/05/22 sertraline 100 mg tablet (Zoloft) 100 mg PO DAILY@0800 02/10/20 02/22/23 1 Day Ago History ~09/05/22 alprazolam 0.5 mg tablet 0.5 mg PO BEDTIME 06/18/20 02/22/23 1 Day Ago History ~09/05/22 amlodipine 10 mg tablet 10 mg PO DAILY@0800 06/18/20 02/22/23 09/06/22 04:30 History ascorbic acid (vitamin C) 500 mg 500 mg PO DAILY ##0 06/18/20 02/22/23 1 Day Ago History capsule,extended release (Vitamin ~09/05/22 C) clonidine HCl 0.1 mg tablet 0.1 mg PO PRN PRN Blood Pressure 06/18/20 02/22/23 06/18/20 History hydrochlorothiazide 25 mg tablet 25 mg PO DAILY@0800 06/18/20 02/22/23 1 Day Ago History ~09/05/22 latanoprost 0.005 % eye drops See Rx Instructions .Route .COMPLEX 06/18/20 02/22/23 1 Day Ago History ~09/05/22 potassium chloride 10 mEq 10 meq PO DAILY@0800 06/18/20 02/22/23 1 Day Ago History tablet,extended release ~09/05/22 vit C 250 mg-vit E 90 mg-zinc 40 1 tab PO BID ##0 06/18/20 02/22/23 06/18/20 History mg-copper 1 hw-jifirc-kzietd capsule (PreserVision AREDS-2) atorvastatin 40 mg tablet (Lipitor) 40 mg PO DAILY #30 tabs 06/21/20 02/22/23 1 Day Ago Rx ~09/05/22 clopidogrel 75 mg tablet (Plavix) 75 mg PO DAILY #30 tabs 06/21/20 02/22/23 09/01/22 Rx carvedilol 12.5 mg tablet 12.5 mg PO BID 30 days #60 tabs 12/29/20 02/22/23 09/06/22 04:30 Rx apple cider vinegar 500 mg tablet See Rx Instructions PO .COMPLEX 06/07/21 02/22/23 1 Day Ago History ~09/05/22 dorzolamide 2 % eye drops 1 drp ophthalmic (eye) TID 06/07/21 02/22/23 1 Day Ago History ~09/05/22 ferrous sulfate 250 mg (50 mg 325 mg PO DAILY@0806/07/21 02/22/23 1 Day Ago History iron) tablet,extended release ~09/05/22 Custome Insoles #1 ea 10/18/21 02/22/23 Unknown Rx cyanocobalamin (vitamin B-12) 100 100 mcg PO DAILY 08/17/22 02/22/23 1 Day Ago History mcg tablet ~09/05/22 omega 7-mwk-brv-fish oil 300 1 cap PO DAILY 08/17/22 02/22/23 09/02/22 History mg-1,000 mg capsule (Fish Oil) magnesium 500 mg PO DAILY 08/30/22 02/22/23 1 Day Ago History ~09/05/22 zinc acetate 50 mg (zinc) capsule 50 mg PO DAILY 08/30/22 02/22/23 1 Day Ago History ~09/05/22 montelukast 10 mg tablet 10 mg PO DAILY 09/07/22 02/22/23 Unknown History (Singulair) ondansetron 4 mg disintegrating See Rx Instructions .Route 09/19/22 02/22/23 Unknown Rx tablet .COMPLEX #30 tabs ondansetron HCl 4 mg tablet 4 mg PO Q6H 7 days #28 tabs 09/29/22 02/22/23 Unknown Rx oxycodone 5 mg tablet 5 mg PO Q4H PRN Moderate Pain 7 09/29/22 02/22/23 Unknown Rx days #30 tabs fluticasone propionate 45 2 puff inhalation BID #12 grams 10/14/22 02/22/23 Unknown Rx mcg-salmeterol 21 mcg/actuation HFA inhaler (Advair HFA) Allergies Allergy/AdvReac Type Severity Reaction Status Date / Time tizanidine Allergy Elevated BP Verified 02/22/23 16:47 venlafaxine [From Effexor] Allergy ALGY-Anaphy Verified 02/22/23 16:47 laxis diazepam [From Valium] AdvReac makes my Verified 02/22/23 16:47 eyes dance PFSH Acute 2 PFSH: Medical History (Updated 04/10/23 @ 22:01 by Hussein Merino MD) Varus deformity, not elsewhere classified, right knee Primary osteoarthritis of right knee Multiple ecchymoses of both upper arms Accelerated hypertension Head ache Recent cerebrovascular accident History of nonmelanoma skin cancer COPD (chronic obstructive pulmonary disease) History of asthma Hypothyroidism TIA (transient ischemic attack) Hypertension, uncontrolled Headache Hypertension CVA (cerebral vascular accident) High cholesterol Depression Surgical History (Updated 04/10/23 @ 22:00 by Hussein Merino MD) Status post total right knee replacement not using cement Hx of bilateral oophorectomy Hx of hysterectomy History of hand surgery Hx of cataract extraction Hx of bladder repair surgery Family History Father Diabetes Stroke CAD (coronary artery disease) Mother CAD (coronary artery disease) Myocardial infarct Brother CAD (coronary artery disease) Other Cancer Clotting disorder Hypertension Denies family history of Dementia Hyperlipidemia Psychiatric illness Chronic kidney disease (CKD) Suicide Anesthesia complication Bleeding disorder Family history of premature coronary artery disease Lung disease Social History Smoking and tobacco/nicotine status: former use of tobacco/nicotine Quit status (tobacco/nicotine): has quit using Year quit tobacco: age 33 Former quit date comment: less than 1ppd x 17 years Alcohol intake: never Substance/Drug Use: never Lives independently: Yes Household members: none Marital status: Legally Vitals/I&O/Wt Last Vital Signs Temp 98.8 F 04/10/23 16:31 Pulse 60 04/10/23 20:01 Resp 15 04/10/23 20:01 BP 143/60 04/10/23 20:01 Pulse Ox 98 04/10/23 20:01 O2 Del Method Room Air 04/10/23 20:11 Weight last 48 hrs Weight 70.307 kg Weight 68.039 kg Physical Exam 2 Narrative: General: Patient is awake and alert. Lying in bed. Head: Normocephalic. Atraumatic. No facial droop. No slurred speech. A complete visual field exam was not conducted. Neck: No JVD. Cardiovascular: RRR. No gallops. No murmurs. Lungs: Clear to auscultation, no use of accessory muscles, no crackles or wheezes. Skin: No jaundice. No rashes. Abdomen: Normal bowel sounds, abdomen soft and nontender. Extremities: No cyanosis or clubbing. Musculoskeletal: Normal muscular development for age. Neurological: Moves all 4 extremities. No myoclonus. Data 04/10/23 17:10 04/10/23 17:10 A&P Assessment and plan (1) Vertigo: Presentation concerning for posterior stroke Neurochecks Fall precautions Telemetry monitoring Evaluate for posterior stroke with MR head wo contrast Check UA (2) CVA (cerebral vascular accident): History of prior stroke Imaging as noted above Continue home high intensity statin Continue home Plavix Recommend further discussion with continued need for estrogen replacement (3) Hypertension: Continue Norvasc Continue ARB Hold HCTZ for now; monitor BP closely Continue home Coreg Hold home clonidine PRN; avoid BB/clonidine combo if possible (4) Dyslipidemia: Check lipids in AM Continue high intensity statin (5) Asthma-COPD overlap syndrome: Not in acute exacerbation (6) Hypothyroidism: Check TSH given new neurological symptoms Continue Synthroid (7) Depression: Continue home meds Plan DVT ppx: Lovenox Attestations 2 Medical Necessity Statement*: Patient presents with intractable vertigo concerning for stroke given her multiple risk factors with expected hospitalization not to cross two midnights. Coding Level of Care Code Acute Code for [facility] Diagnoses Vertigo R42 CVA (cerebral vascular accident) I63.9 Hypertension I10 Dyslipidemia E78.5 Asthma-COPD overlap syndrome J44.9 Hypothyroidism E03.9 Depression F32.9
[2023-04-10 22:00] VITALS: PULSE 62
[2023-04-10] MEDS: enoxaparin 40 mg/0.4 mL Syringe SUBCUT (23:05)
[2023-04-10 23:41] LABS: Thyroid Stimulating Hormone 1.98 uIU/mL (0.27-4.20)
[2023-04-11] VITALS: BP 121/75; PULSE 61; RESP 17; TEMP 36.7; O2SAT 96
--- NOTE | 2023-04-11 | MR_ITS ---
WS: [id number] MRI BRAIN WITHOUT CONTRAST HISTORY: Vertigo, eval for posterior stroke COMPARISON: 06/15/2020, head CT 04/10/2023 TECHNIQUE: Diffusion imaging, multiplanar T1, T2 and FLAIR imaging obtained. No evidence for acute infarct or hemorrhage. Singh-white matter differentiation is normal. Very mild small vessel microvascular ischemic disease which has progressed since 2020. No interval in farcts. Ventricles and extra-axial spaces are normal. No inferior displacement of cerebellar tonsils. The sella turcica and pituitary gland are unremarkabl e. Dural venous sinuses and huslia of Dill demonstrate no abnormality on this unenhanced studies. Paranasal sinuses: Clear. Mastoid air cells: Normal. Calvarium and scalp: Intact. Narrowing of the C4-5 disc. Osteophyte from the inferior endplate of C4 encroaches upon the ventral c ervical cord. IMPRESSION: 1. No acute infarct. Diffusion imaging is normal. 2. There is mild atrophy and small vessel ischemic disease. Mild progression of small vessel ischemi c changes since 2020.
[2023-04-11 04:00] VITALS: BP 102/50; PULSE 56; RESP 16; TEMP 36.8; O2SAT 96
[2023-04-11 05:29] LABS: Chol HDL Ratio 2.26 mg/dL (0.0-4.40); Cholesterol 163 mg/dL (0-200); HDL Cholesterol 72 mg/dL (60-100); LDL Cholesterol Calculated 57 mg/dL (50-129); LDL HDL Ratio 0.79 RATIO (0.00-3.22); Triglycerides 168 mg/dL (0-150)
[2023-04-11 06:42] VITALS: BMI 26.6
[2023-04-11 06:44] VITALS: PULSE 57
[2023-04-11 07:30] VITALS: BP 131/55; PULSE 54; RESP 16; TEMP 36.8; O2SAT 95
[2023-04-11] MEDS: amlodipine 10 mg Tablet PO (08:16)
[2023-04-11] MEDS: carvedilol 12.5 mg Tablet PO (08:16)
[2023-04-11] MEDS: montelukast sodium 10 mg Tablet PO (08:16)
[2023-04-11] MEDS: levothyroxine 75 mcg Tablet PO (08:16)
[2023-04-11] MEDS: clopidogrel 75 mg Tablet PO (08:16)
[2023-04-11] MEDS: sertraline 100 mg Tablet PO (08:16)
--- NOTE | 2023-04-11 08:17 | PC.PHAR ---
PT HAS 2 MEDS WITH QUESTIONABLE DIRECTIONS. MSG TO [facility] DENNEY FOR VERIFICATION. 04/11/23. WILL FOLLOW UP ON THEM AFTER THEY OPEN AT 8:30 AM. CARVEDILOL 12.5 IS TWICE DAILY ON RX, PT STATES IS ONCE DAILY IN PM. LATANOPROST 0.005% IS DIRECTED AND NEEDS CLARIFICATION ON WHICH EYE (S) AND VERIFY HOW OFTEN. 04/11/23
[2023-04-11] MEDS: meclizine 25 mg tablet PO ×2 (08:22→15:22)
--- NOTE | 2023-04-11 09:02 | PC.CHAP ---
Pastoral Care Encounter/Spiritual Assessment Type of Contact [] Declined dryer operator visit [] Patient/Family/Request visit [] Outpatient visit [] Follow-up visit [] Physician referral [] Code/Alert [] Routine visit [] Staff referral [] Actively dying [] Patient sleeping [] Family support [] [] Out of room [] Palliative care [] [x] Receiving care in room [] Pre-surgical visit [] Trauma [] Long length of stay [] ICU visit [] Other: Relational/Emotional Strength [] Patient feels connected with others/family/visitors/staff [] Distress [] Loneliness/isolation [] Abandonment Spirituality of Patient [] Person of Radha [] Attends Catholic of their Radha [] Believes in Prayer [] Reads Bible or Anglican materials [] There are Spiritual issues to be addressed Modern Greek Studies Professor Interventions [] Prayer [] Active listening [] Non-anxious presence [] Spiritual/emotional support [] Crisis/trauma care [] Spiritual counseling [] Bereavement support [] Provided bereavement packet [] Provided Bible/devotional materials [] Provided toy/stuffed animal, coloring book to patient or family member [] Provided Communion [] Anointing/[place] [] Salvation [] Completed spiritual assessment [] Other: Impact on Illness or Injury [] Angry [] Fearful [] Anxious [] Often cries [] Exhaustion [] Unable to work [] Unable to attend yazidism [] Unable to walk/stand [] Unable to read [] Unable to drive [] Unable to eat/drink [] Unable to sleep [] Unable to be with family [] Patient intubated [] Other: Summary Time spent with patient
[2023-04-11] MEDS: aspirin 81 mg EC Tablet PO (10:02)
[2023-04-11 11:37] VITALS: BP 124/66; PULSE 60; RESP 16; TEMP 36.4; O2SAT 94
--- NOTE | 2023-04-11 14:40 | P.DS_ITS ---
Discharge Providers Date of Admission: 04/10/23 20:04 Date of Discharge: April 11, 2023 Attending Provider at Admission: Stanislav Palm MD Attending Provider at Discharge: Jonathan Smallwood MD Primary Care Provider: Ching Varma DO Diagnoses at Discharge Discharge Diagnosis (1) Vertigo: Status: Acute (2) CVA (cerebral vascular accident): Status: Acute (3) Hypertension: Status: Acute (4) Dyslipidemia: Status: Acute (5) Asthma-COPD overlap syndrome: Status: Acute (6) Hypothyroidism: Status: Acute (7) Depression: Status: Acute Reason for Visit Reason for Visit: dizziness Hospital Course Hospital Course Migdalia is an 82-year-old female who presented to the emergency department complaining of severe vertigo and dizziness. She has prior history of 2 strokes. She was not in the window to consider any thrombolytic, or thrombectomy. Physical exam did not demonstrate any obvious drift, or nystagmus. Secondary to the severe vertigo there was concerns for posterior circulation stroke versus inner ear abnormalities. She was placed on observation in the hospital, and an MRI was obtained. She was monitored on telemetry as well. There was no evidence of A-fib. MRI did not show any acute infarcts. Her dizziness had resolved by time of reevaluation on April 11, and she was able to ambulate with physical therapy. With no abnormality on MRI, it is likely her vertigo was from an inner ear source, now resolved. I encouraged her to take meclizine as needed, if mild dizziness recurred. Return for any worsening problems, and continue her current medications. I did community health counselor her that clonidine as needed might be changed in the future. She is going to discuss this with her primary care provider. She was able to ask questions and agreed with the plan. Physical Exam Narrative: General exam no distress Neck is supple Cardiovascular regular rate and rhythm Lungs clear Abdomen soft Extremities no cyanosis clubbing or edema Neuro no focal deficits Discharge Data Studies Completed and Pending Completed Studies During Hospitalization Category Date Time Status CT head wo con* [id number] Stat Cat Scan 04/10/23 16:43 Completed XR chest 1V portable [id number] Stat Exams 04/10/23 16:43 Completed MR head wo con* [id number] Routine MRI 04/11/23 Completed Pending at discharge Category Date Time Status Urinalysis and Microscopic Routine Lab 04/10/23 21:59 Uncollected Radiology Impressions Chest X-Ray 04/10/23 16:43 IMPRESSION: No acute findings. Head CT 04/10/23 16:43 IMPRESSION: No acute intracranial abnormality. Laboratory Results WBC 5.79 10^3/uL (3.29-11.43) 04/10/23 17:10 RBC 3.86 10^6/uL (3.85-5.65) 04/10/23 17:10 Hgb 11.80 g/dL (11.27-16.99) 04/10/23 17:10 Hct 36.0 % (36-47) 04/10/23 17:10 MCV 93.3 fl (85-98) 04/10/23 17:10 MCH 30.6 pg (27-33) 04/10/23 17:10 MCHC 32.8 g/dL (30-55) 04/10/23 17:10 RDW 13.8 % (12.1-15.1) 04/10/23 17:10 Plt Count 182 10^3/cmm (157-399) 04/10/23 17:10 MPV 10.1 fL (7.4-10.4) 04/10/23 17:10 Neut % (Auto) 69.5 % 04/10/23 17:10 Lymph % (Auto) 22.8 % 04/10/23 17:10 [place] % (Auto) 5.4 % 04/10/23 17:10 Eos % (Auto) 1.4 % 04/10/23 17:10 Baso % (Auto) 0.7 % 04/10/23 17:10 Neut # (Auto) 4.03 10^3/uL (1.8-7.7) 04/10/23 17:10 Lymph # (Auto) 1.3 10^3/uL (0.8-4.8) 04/10/23 17:10 [place] # (Auto) 0.3 10^3/uL (0.2-0.9) 04/10/23 17:10 Eos # (Auto) 0.1 10^3/uL (0.0-0.8) 04/10/23 17:10 Baso # (Auto) 0.0 10^3/uL (0.0-0.1) 04/10/23 17:10 Nucleated RBC % (auto) 0 % 04/10/23 17:10 Nucleated RBCs # 0.0 /100WBC 04/10/23 17:10 PT 14.20 SECONDS (12.1-14.9) 04/10/23 17:10 INR 1.07 (0.8-1.2) 04/10/23 17:10 Sodium 137 mmol/L (136-145) 04/10/23 17:10 Potassium 3.8 mmol/L (3.5-5.1) 04/10/23 17:10 Chloride 104 mmol/L (98-107) 04/10/23 17:10 Carbon Dioxide 23 mmol/L (22-29) 04/10/23 17:10 Anion Gap 13.8 (5-19) 04/10/23 17:10 BUN 18 mg/dL (8-23) 04/10/23 17:10 Creatinine 0.8 mg/dL (0.5-0.9) 04/10/23 17:10 GFR Calculation Not Reportable 04/10/23 17:10 Glucose 111 mg/dL (65-115) 04/10/23 17:10 Calculated Osmolality 287 mOsm/kg (285-295) 04/10/23 17:10 Calcium 8.9 mg/dL (8.5-10.5) 04/10/23 17:10 Total Bilirubin 0.5 mg/dL (0.15-1.2) 04/10/23 17:10 AST 15 U/L (0-32) 04/10/23 17:10 ALT 13 U/L (0-33) 04/10/23 17:10 Alkaline Phosphatase 54 U/L (35-105) 04/10/23 17:10 C-Reactive Protein 3.0 mg/L (0.0-4.9) 04/10/23 17:10 Total Protein 6.6 g/dL (6.6-8.7) 04/10/23 17:10 Albumin 4.1 g/dL (3.5-5.2) 04/10/23 17:10 Globulin 2.5 g/dL (1.3-4.6) 04/10/23 17:10 Triglycerides 168 mg/dL (0-150) H 04/11/23 04:10 Cholesterol 163 mg/dL (0-200) 04/11/23 04:10 LDL Cholesterol, Calc 57 mg/dL (50-129) 04/11/23 04:10 HDL Cholesterol 72 mg/dL (60-100) 04/11/23 04:10 LDL/HDL Ratio 0.79 RATIO (0.00-3.22) 04/11/23 04:10 Cholesterol/HDL Ratio 2.26 mg/dL (0.0-4.40) 04/11/23 04:10 TSH 1.98 uIU/mL (0.27-4.20) 04/10/23 17:10 Vitals Last Vital Signs Temp 97.5 F L 04/11/23 11:37 Pulse 60 04/11/23 11:37 Resp 16 04/11/23 11:37 BP 124/66 04/11/23 11:37 Pulse Ox 94 04/11/23 11:37 O2 Del Method Room Air 04/11/23 11:37 Discharge Plan Discharge Patient Disposition: Home Condition: Stable Prescriptions: New meclizine 25 mg Tablet 25 mg PO TID PRN (Reason: Dizziness) Qty: 10 0RF Continued estradiol 1 mg tablet 1 mg PO DAILY@0800 losartan 100 mg tablet 100 mg PO DAILY@0800 sertraline [Zoloft] 100 mg tablet 100 mg PO DAILY@0800 levothyroxine 75 mcg capsule 75 mcg PO DAILY@0800 ferrous sulfate 250 mg (50 mg iron) tablet extended release 325 mg PO DAILY@0800 apple cider vinegar 500 mg tablet 500 mg PO DAILY dorzolamide 2 % drops 1 drp ophthalmic (eye) TID Rx Instructions: BOTH EYES (DME) Custome Insoles See Rx Instructions .Route .MEDSUPPLY Qty: 1 0RF Rx Instructions: As directed cyanocobalamin (vitamin B-12) 100 mcg tablet 100 mcg PO DAILY omega 8-ijo-xwi-fish oil [Fish Oil] 300-1,000 mg capsule 1 cap PO DAILY carvedilol 12.5 mg tablet 12.5 mg PO BID 30 Days Qty: 60 5RF Rx Instructions: must administer with a meal/food ondansetron HCl 4 mg tablet 4 mg PO Q6H 7 Days Qty: 28 0RF Advair HFA 45-21 mcg/actuation HFA aerosol inhaler 2 puff inhalation BID Qty: 12 0RF latanoprost 0.005 % drops 1 drp ophthalmic (eye) QPM potassium chloride 10 mEq Tablet Extended Release 10 meq PO DAILY@0800 alprazolam 0.5 mg tablet 0.5 mg PO BEDTIME ascorbic acid (vitamin C) [Vitamin C] 500 mg Capsule, Extended Release 500 mg PO DAILY Qty: 0 hydrochlorothiazide 25 mg tablet 25 mg PO DAILY@0800 PreserVision AREDS-2 250-90-40-1 mg Capsule 1 tab PO BID Qty: 0 amlodipine 10 mg tablet 10 mg PO DAILY@0800 clopidogrel [Plavix] 75 mg tablet 75 mg PO DAILY Qty: 30 0RF atorvastatin [Lipitor] 40 mg tablet 40 mg PO DAILY Qty: 30 0RF zinc acetate 50 mg (zinc) Capsule 50 mg PO DAILY montelukast [Singulair] 10 mg Tablet 10 mg PO DAILY magnesium oxide 500 mg Tablet 500 mg PO DAILY Discontinued clonidine HCl 0.1 mg tablet 0.1 mg PO PRN PRN (Reason: Blood Pressure) Discharge Orders: Discharge Order (Routine); Ordered 04/11/23 Ordered By: Jonathan Smallwood Referrals: Ching Varma DO [Primary Care Provider] - 4-7 days (We have notified your physician's clinic of the need for a follow-up appointment to be scheduled. If you have not heard from them within the next 2 business days, please call them directly. DR OFFICE WILL CALL WITH APPOINTMENT ) Discharge Diet: Usual diet Discharge Activity: Increase activity as tolerated Patient Instructions: Meclizine (By mouth), Opioid Safety Activity Restrictions/Additional Instructions: No driving for 2 days. Stop Clonidiine. Follow up with your PCP in 3-5 days. Discharge Attestations Time Spent in Discharge Care*: greater than 30 min Status at Discharge: Cognitive status at discharge: cognitively intact , Behavioral status at discharge: cooperative , Quality Metrics Clinical Quality Measures [ No reported AMI, CVA or VTE this stay] Coding Level of Care Code 94567 Total time (in minutes) for Discharge: 35 Diagnoses Vertigo R42 CVA (cerebral vascular accident) I63.9 Hypertension I10 Dyslipidemia E78.5 Asthma-COPD overlap syndrome J44.9 Hypothyroidism E03.9 Depression F32.9
== END 2023-04-11 15:37 | disposition home or self-care (01) ==
LOC: ER 19:50 → MEDSURG 20:12
PROVIDERS: Internal Medicine; Admitting Provider Student in an Organized Health Care Education/Training Program; Emergency Provider Emergency Medicine; PCP Family Medicine; Visit Provider Internal Medicine
DX: R42 Dizziness and giddiness (principal); I10 Essential (primary) hypertension; E78.5 Hyperlipidemia, unspecified; J44.9 Chronic obstructive pulmonary disease, unspecified; E03.9 Hypothyroidism, unspecified; F32.9 Major depressive disorder, single episode, unspecified; Z86.73 Personal history of transient ischemic attack (TIA), and cerebral infarction without residual deficits; Z87.891 Personal history of nicotine dependence; F32.A Depression, unspecified
CPT/HCPCS: 36415; 70450; 70551; 71045; 80053; 80061; 84443; 85025; 85610; 86140; 93005; 96372; 96374; 97161; 97530; 99285; G0378; J1650; J2405; J8597

== ENCOUNTER → 2023-06-21 15:31 | Outpatient (BNVA) | payer MEDICARE, MEDICAID, SELFPAY | PROVIDERS: PCP Family Medicine; Visit Provider Specialist | DX: M17.12 Unilateral primary osteoarthritis, left knee; M21.162 Varus deformity, not elsewhere classified, left knee; Z96.651 Presence of right artificial knee joint; M25.562 Pain in left knee; Z01.818 Encounter for other preprocedural examination | CPT/HCPCS: 36415; 73560; 73565; 80053; 81003; 85025; 99214 ==

== ENCOUNTER 2023-08-11 10:00 | Outpatient (CLI) | payer MEDICARE, MEDICAID, SELFPAY ==
--- NOTE | 2023-08-11 10:03 | CT_ITS ---
WS: [id number] CT LEFT knee, noncontrast HISTORY: M17.12 - Unilateral primary osteoarthritis, left knee TECHNIQUE: Protocol for NAIF total knee replacement has been obtained. This includes axial imaging th rough the LEFT hip, LEFT knee and LEFT ankle. DLP: 870.18 mGy.cm COMPARISON: 06/21/2023 Mild SI joint arthritis. Mild osteopenia. Mild sigmoid diverticular burden. LEFT knee: Tricompartment osteoarthritis. At least moderate narrowing of the joint compartments with small marginal osteophytes. No fracture. Moderate suprapatellar joint effusion. Negative LEFT ankle. IMPRESSION: CT imaging provided for [facility] robotic total knee replacement.
== END 2023-08-11 10:01 | disposition home or self-care (01) ==
LOC: RAD 10:00
PROVIDERS: PCP Family Medicine; Visit Provider Specialist
DX: M17.12 Unilateral primary osteoarthritis, left knee (principal)
CPT/HCPCS: 73700; 80053; 81003; 85025

== ENCOUNTER 2023-08-16 11:09 | Observation (INO) | payer MEDICARE, MEDICAID, SELFPAY ==
[2023-08-16] VITALS (19 sets, daily range): BP systolic 103–166; BP diastolic 48–78; PULSE 45–76; RESP 14–18; TEMP 34.6–36.7; O2SAT 94–98; BMI 25.2
[2023-08-16] MEDS: CELEcoxib 200 mg Capsule 400 MG PO (06:32)
--- NOTE | 2023-08-16 06:32 | P.ANESASSM_ITS ---
Pre-Anesthetic Assessment Height/Weight: Height 1.63 m Weight 66.678 kg Temp Pulse Resp BP Pulse Ox O2 Del Method 98.1 F 71 16 143/69 96 Room Air 08/16/23 06:23 08/16/23 06:23 08/16/23 06:23 08/16/23 06:23 08/16/23 06:23 08/16/23 06:23 Operation Date: 08/16/23 07:00 Proposed Procedures p Ramiro Robot Total Knee Arthroplasty(Left) - Tyra Diaz MD Was Beta Charli taken within 24 hours: Yes Last intake: Intake Last Liquid Date 08/15/23 Last Liquid Time 19:00 Last Solid Date 08/15/23 Last Solid Time 18:00 Exam alert, oriented x 3, clear to auscultation bilaterally and regular rate & rhythm Airway Submandibular: within normal limits Cervical ROM: within normal limits Mallampati: Class I Pulmonary Chronic Obstructive Pulmonary Disease CV/HEM Hypertension Neuropsych Cerebrovascular Accident Anesthetic Plan ASA status: 3 Anesthesia: Regional (specify below) Other: spinal. Off plavix x 5 days Medications/Allergies Home Medications Medication Instructions Recorded Confirmed Last Taken Type estradiol 1 mg tablet 1 mg PO DAILY@0800 02/10/20 08/15/23 08/15/23 History levothyroxine 75 mcg capsule 75 mcg PO DAILY@0800 02/10/20 08/15/23 08/15/23 History losartan 100 mg tablet 100 mg PO DAILY@0800 02/10/20 08/15/23 08/15/23 History sertraline 100 mg tablet (Zoloft) 100 mg PO DAILY@0800 02/10/20 08/15/23 08/15/23 History alprazolam 0.5 mg tablet 0.5 mg PO BEDTIME 06/18/20 08/15/23 08/15/23 History amlodipine 10 mg tablet 10 mg PO DAILY@0800 06/18/20 08/15/23 08/15/23 History ascorbic acid (vitamin C) 500 mg 500 mg PO DAILY ##0 06/18/20 08/15/23 08/08/23 History capsule,extended release (Vitamin C) hydrochlorothiazide 25 mg tablet 25 mg PO DAILY@0800 06/18/20 08/15/23 08/15/23 History latanoprost 0.005 % eye drops 1 drp ophthalmic (eye) QPM 06/18/20 08/15/23 08/15/23 History potassium chloride 10 mEq 10 meq PO DAILY@0800 06/18/20 08/15/23 08/15/23 History tablet,extended release vit C 250 mg-vit E 90 mg-zinc 40 1 tab PO BID ##0 06/18/20 08/15/23 08/15/23 History mg-copper 1 [id number]-rgxhwc capsule (PreserVision AREDS-2) atorvastatin 40 mg tablet (Lipitor) 40 mg PO DAILY #30 tabs 06/21/20 08/15/23 08/14/23 Rx clopidogrel 75 mg tablet (Plavix) 75 mg PO DAILY #30 tabs 06/21/20 08/15/23 08/11/23 Rx carvedilol 12.5 mg tablet 12.5 mg PO BID 30 days #60 tabs 12/29/20 08/16/23 08/16/23 Rx apple cider vinegar 500 mg tablet 500 mg PO DAILY 06/07/21 08/15/23 08/08/23 History dorzolamide 2 % eye drops 1 drp ophthalmic (eye) TID 06/07/21 08/15/23 08/15/23 History ferrous sulfate 250 mg (50 mg 325 mg PO DAILY@0800 06/07/21 08/15/23 08/15/23 History iron) tablet,extended release Custome Insol #1 ea 10/18/21 06/21/23 Unknown Rx omega 3-tkn-uux-fish oil 300 1 cap PO DAILY 08/17/22 08/15/23 08/11/23 History mg-1,000 mg capsule (Fish Oil) montelukast 10 mg tablet 10 mg PO DAILY 09/07/22 08/15/23 08/15/23 History (Singulair) ondansetron HCl 4 mg tablet 4 mg PO Q6H 7 days #28 tabs 09/29/22 08/15/23 Unknown Rx meclizine 25 mg tablet 25 mg PO TID PRN Dizziness #10 tabs 04/11/23 08/15/23 Unknown Rx meloxicam 15 mg tablet 15 mg PO DAILY #30 tabs 06/21/23 08/15/23 08/11/23 Rx fluticasone fur. 100 mcg-umeclid inhalation 08/11/23 08/11/23 08/15/23 History 62.5 mcg-vilant 25 mcg inhalat.powder (Trelegy Ellipta) gabapentin 100 mg capsule 100 mg PO DAILY 08/11/23 08/15/23 08/15/23 History Allergies Allergy/AdvReac Type Severity Reaction Status Date / Time tizanidine Allergy Elevated BP Verified 08/11/23 11:29 venlafaxine [From Effexor] Allergy ALGY-Anaphy Verified 08/11/23 11:29 laxis diazepam [From Valium] AdvReac makes my Verified 08/11/23 11:29 eyes dance [facility] Anesthesia Medical History Varus deformity, not elsewhere classified, right knee Primary osteoarthritis of right knee Multiple ecchymoses of both upper arms Accelerated hypertension Head ache Recent cerebrovascular accident History of nonmelanoma skin cancer COPD (chronic obstructive pulmonary disease) History of asthma Hypothyroidism TIA (transient ischemic attack) Hypertension, uncontrolled Headache Hypertension CVA (cerebral vascular accident) High cholesterol Depression Surgical History Status post total right knee replacement not using cement Hx of bilateral oophorectomy Hx of hysterectomy History of hand surgery Hx of cataract extraction Hx of bladder repair surgery Family History Father Diabetes Stroke CAD (coronary artery disease) Mother CAD (coronary artery disease) Myocardial infarct Brother CAD (coronary artery disease) Other Cancer Clotting disorder Hypertension Denies family history of Dementia Hyperlipidemia Psychiatric illness Chronic kidney disease (CKD) Suicide Anesthesia complication Bleeding disorder Family history of premature coronary artery disease Lung disease Social History Smoking and tobacco/nicotine status: former use of tobacco/nicotine Quit status (tobacco/nicotine): has quit using Year quit tobacco: age 33 Former quit date comment: less than 1ppd x 17 years Alcohol intake: never Substance/Drug Use: never Lives independently: Yes Household members: none Marital status: Legally Data Anesthesia Cardiac Studies: Echocardiogram Ultrasound 06/19/20
[2023-08-16] MEDS: acetaminophen 1,000 MG/100 ML PIGGYBACK 400 MG IV ×3 (06:33→19:49)
[2023-08-16] MEDS: gabapentin 300 mg Capsule PO (06:33)
[2023-08-16] MEDS: sodium chloride 0.9% 1,000 ML 30 ML IV (06:38)
[2023-08-16] MEDS: scopolamine 1.5 Patch 1 PATCH TRANSDERMA (06:38)
--- NOTE | 2023-08-16 06:59 | P.HPUD_ITS ---
Surgery/Procedure H&P Update DATE OF PROCEDURE: August 16, 2023 DATE H&P PERFORMED: 08/11/23 H&P UPDATE INFORMATION: I have reviewed H&P completed within last 30 days, I have examined patient prior to procedure, No changes to prior documentation and H&P is in [facility] EMR on date indicated PLANNED PROCEDURE: Operation Date: 08/16/23 07:00 Proposed Procedures p Ramiro Robot Total Knee Arthroplasty(Left) - Tyra Diaz MD Related Problem List Diagnoses (1) Primary osteoarthritis of left knee: (2) Varus deformity, not elsewhere classified, left knee:
[2023-08-16] MEDS: ceFAZolin 2,000 MG in sodium chloride 0.9% (plus) 50 ML 100 MG IV ×2 (07:01→16:11)
[2023-08-16] MEDS: tranexamic acid 1,000 mg/10mL SDV 1000 MG IV (07:26)
--- NOTE | 2023-08-16 07:31 | ANES.PROC ---
Anesthesia Procedures Procedure/Date: 08/16/23 Nerve Block ^: Nerve Block 1: Time Out Performed: Yes Consent: requested by attending/covering physician, risks and benefits reviewed and patient agrees to proceed Nerve block location: adductor canal Anesthesia monitors applied: pulse oximetry, EKG, BP cuff and oxygen Nerve block position: supine Anesthetic Used: ropivicaine 0.5% Amount of anesthesia used (mL): 30 Ultrasound used to: recognize landmarks Nerve Stimulator Used?: No Injection: neg aspiration of heme Patient Tolerated Procedure: well Complications: none Additional Comments: after sab placed patient placed supine and chlorhexidine prep to left leg. USG used to place 15 ml 0.5% ropivicaine on each side of artery without problems. Patient tolerated procedure well.
[2023-08-16] MEDS: BUPivacaine 0.5% INJ 30 mL 20 ML XX (07:57)
[2023-08-16] MEDS: BUPivacaine liposome 13.3 mg/mL SDV 10 mL 266 MG INFILTRATI (07:57)
[2023-08-16] MEDS: vancomycin 1,000 MG SDV 1000 MG XX (07:58)
[2023-08-16] MEDS: ceFAZolin 2,000 mg SDV 2000 MG IRRIGATION (07:59)
--- NOTE | 2023-08-16 10:35 | XR_ITS ---
WS: [id number] Exam: XR knee LT 1-2V [id number] Date/Time of Exam: 08/16/2023 10:35 AM Reason For Exam: Status post left total knee arthroplasty Comparison 06/21/2023. Total knee arthroplasty is in place in satisfactory position. Postoperative changes in the adjacent s oft tissues. IMPRESSION: 1. LEFT total knee replacement in satisfactory position.
--- NOTE | 2023-08-16 11:01 | P.OP_ITS ---
Operative Report Date of procedure: August 16, 2023 Pre-op diagnosis: Primary osteoarthritis left knee Post-op diagnosis: Primary osteoarthritis left knee Post-op findings: Severe osteoarthritis with large osteophytes and significant varus deformity Procedure done: Left total knee arthroplasty with Ramiro guidance Implants: The Tabby total knee system with a size 4 triathlon beaded cruciate retaining femur left, a triathlon titanium tibial component size 3 beaded, a triathlon X3 tibial bearing CS insert size 3 X 12 mm and a beaded triathlon titanium asymmetric patella size 32 x 10 mm Specimens removed/disposition: Bone, disposed of Surgeon: Tyra Diaz MD Flight Attendant: [facility] operating [facility] technicians Anesthesia: Spinal (With MAC, ASA 3, and with supplemental adductor block.) Estimated blood loss (mL): 100 Tourniquet time (min): 0 (Not utilized) IV fluids (mL): 1,000 Urine output (mL): 100 Complications: None Findings: Severe degenerative osteoarthritis with varus deformity and slight flexion contracture Condition: stable Disposition: PACU (Then to floor for postoperative rehabilitation and pain management) Brief History: This 83-year-old woman presents today for same-day surgery with plans for left total knee arthroplasty utilizing Ramiro guidance. The patient aggravated this left knee when she turned her body and fell while standing when she stepped up onto a platform at restorationism. Following that, she was unable to weight-bear. She had 5 of 10 pain on presentation to the office initially. X-rays demonstrated severe degenerative osteoarthritis with flexion deformity and varus deformity. The patient had previously undergone right total knee arthroplasty in August 2022 and did well following this. After discussion with the patient, she wished to proceed with left total knee arthroplasty. Questions were answered and consents were signed while the patient was in the office. Procedure: The patient was brought to the operating theater, and after undergoing spinal anesthesia with supplemental MAC, as well as an adductor canal block, ASA 3, the left lower extremity was prepped with Dura-Prep and draped in usual fashion following placement of a tourniquet high on the leg. The leg was then draped free.? Tourniquet was not elevated during the case.? A surgical pause was performed, and at the time of the surgical pause, we confirmed the site and side of surgery. Additionally, we confirmed the appropriate and timely administration of preoperative antibiotics, Ancef 2 g and Transexemic acid 1 g.? The availability of equipment was confirmed, and the patient's identity was verbalized as well.? An additional transexemic acid 1 g will be given on the floor as well. Following the surgical pause, an incision was made centering over the patella continuing proximally and distally as necessary to allow access to the knee joint. Dissection continued through skin and soft tissues using a scalpel. Hemostasis was obtained using electrocautery. The skin incision was followed by a median parapatellar arthrotomy. The leg was extended and the patella was able to be displaced laterally.? Appropriate arrays and markers were placed in appropriate position for use of the Ramiro.? Preoperative planning had been accomplished and was discussed in detail with the [facility] customer engagement representative.? Intraoperative mapping of the femur and tibia was accomplished after the arrays were placed.? Internal markers were also placed.? Once we had accomplished the Ramiro mapping, we began the appropriate resections for placement of the prosthesis.? The plan was for a cruciate retaining right total knee arthroplasty. Once appropriate mapping had been accomplished retraction was established using manual retraction by surgical technicians and also the Ramiro leg positioner and retractors.? The knee was evaluated.? There was significant osteoarthritic change with significant osteophyte formation a significant varus deformity.? Appropriate bone resection was accomplished using the Ramiro.? The femur was sized to a size 4.? Following femoral cuts, attention was directed to the tibia.? Osteophytes were removed prior to this portion of the procedure.? We had performed a medial release at the beginning of the procedure to allow for placement of the array and to allow for better planning with flexion and extension adjustments per Ramiro programming.? Proximal tibia was evaluated, and it was felt that appropriate size for the tibia was a size 3.? Tray was noted to fit nicely with good coverage.? Rim fit was accomplished with the size 3. A trial reduction was accomplished after osteophytes have been removed as well as the medial and lateral menisci.? We had removed the anterior cruciate ligament at the beginning of the case and preserved the posterior cruciate ligament.? Trial reduction was accomplished with a size 4 femoral cruciate retaining component and a size 3 CS tibial bearing insert which was 10 mm in thickness initially.? Final insert was an 12 mm implant.? Alignment was felt to be appropriate as well.? Trial components were removed after the femur had been drilled.? Prior to removal of the tibial tray which had been pinned in position with appropriate rotation as determined by the Ramrio plan, we broached the tibia.? Subsequently, the 4 drill holes were made for the prosthetic component.? All trial components were removed, and the wound was irrigated.? Plans were made for insertion of the prosthetic components.? Prior to this, the patella was manually prepared.? After resection of the articular surface with the jogging system, it was measured and measured a 32 mm patella.? We resected approximately 10 mm of patella.? Patellar height was restored with the patellar component. Once again, the wound was irrigated.? The Tritanium tibia was impacted into position.? The beaded femur was then impacted into position in a cementless fashion. The CS tibial insert was placed prior to placement of the femoral component. The patella was pressed into position with a patellar clamp.? Exparel was injected about the components deep and superficially.? The knee was then copiously irrigated with betadine and saline and suctioned dry. Attention was then directed to closure. Closure was accomplished with 0 Vicryl in the fascial tissues.? This was followed by Surgiflo and vancomycin powder.? Following this, a 2-0 Monocryl was used in the subcutaneous tissues, and the skin was closed with skin jessica.? Care was taken to assure an excellent subcutaneous as well as skin closure.? A sterile dressing was then placed consisting of Dermabond Prineo, OpSite, sterile soft roll including over the foot, and an Dandre wrap. The patient was returned the Recovery Room in a satisfactory condition. X-rays were obtained and reviewed there.? The patient will be discharged to the floor for postoperative rehabilitation and pain management. Related Problem List Diagnoses (1) Primary osteoarthritis of left knee: (2) Varus deformity, not elsewhere classified, left knee:
[2023-08-16] MEDS: CELEcoxib 200 mg Capsule PO (12:32)
[2023-08-16] MEDS: ondansetron 4 MG Tablet PO ×2 (12:33→18:03)
[2023-08-16] MEDS: oxyCODONE 5 mg IR Tab/Cap PO ×2 (13:29→18:09)
[2023-08-16] MEDS: amlodipine 10 mg Tablet PO (13:30)
[2023-08-16] MEDS: losartan 50 mg Tablet 100 MG PO (13:30)
[2023-08-16] MEDS: chlorhexidine gluconate 0.12% Btl 473 mL 30 ML MUCOUS MEM ×3 (13:30→22:07)
--- NOTE | 2023-08-16 14:15 | ANE.PACU2 ---
Inpatient post-anesthesia follow up: Vital signs: Temperature 94.3 F Pulse Rate 45 Respiratory Rate 16 Blood Pressure 166/65 Pulse Oximetry 97 Oxygen Delivery Me thod Room Air Oxygen Flow Rate 6 Fraction of Inspir ed Oxygen Hydration adequate: Yes Nausea and vomiting: No Mental status: Baseline Additional Comments: bradycardia at rest but asymptomatic. Alert and oriented to time place and day.
--- NOTE | 2023-08-16 14:25 | PC.NURSE ---
Upon initial assessment this RN notes that pt is bradycardic with a pulse of 45-50BPM. This RN also notes a temperature of 94.2F. This temp was reassessed with multiple thermometers axillary, orally, and rectally. This RN applies Maribel Hugger to increase pt temp. She does state that she feels cold. Cardiac monitoring applied to pt to closely monitor bradycardia. Per telemetry, it appears pt is sinus kim. This RN notifies Dr. Diaz. No new orders at this time.
[2023-08-16] MEDS: dorzolamide 2% Op Soln 10 mL Btl 1 DROP EYE-BOTH ×2 (16:11→21:00)
[2023-08-16] MEDS: sennosides-docusate Tablet 2 TAB PO (18:03)
[2023-08-16] MEDS: iron polysaccharide complex 150 mg Capsule PO (18:03)
[2023-08-16] MEDS: calcium carbonate 500 mg Chew Tablet 1000 MG PO (18:03)
[2023-08-16] MEDS: latanoprost 0.005% Op Soln 2.5 mL Btl 1 DROP EYE-BOTH (18:03)
[2023-08-16] MEDS: carvedilol 12.5 mg Tablet PO (18:03)
[2023-08-16] MEDS: mupirocin oint 22 gm 1 APPLIC NASAL (18:09)
[2023-08-16] MEDS: TRAMadol 50 mg Tablet PO (20:59)
[2023-08-16] MEDS: ALPRAZolam 0.5 mg Tablet PO (20:59)
[2023-08-17] VITALS (7 sets, daily range): BP systolic 119–132; BP diastolic 61–76; PULSE 56–64; RESP 14–18; TEMP 36.6–36.9; O2SAT 94–95
[2023-08-17] MEDS: ondansetron 4 MG Tablet PO ×3 (00:03→08:00)
[2023-08-17] MEDS: CELEcoxib 200 mg Capsule PO ×2 (00:03→11:43)
[2023-08-17] MEDS: ceFAZolin 2,000 MG in sodium chloride 0.9% (plus) 50 ML 100 MG IV ×2 (00:03→07:28)
[2023-08-17 03:48] LABS: Basophils % 0.7 %; Eosinophils # 0.1 10^3/uL (0.0-0.8); Eosinophils % 2.1 %; Hematocrit 32.6 % (36-47); Lymphocytes # 1.1 10^3/uL (0.8-4.8); Mean Corpuscular HGB Conc 31.6 g/dL (30-55); Mean Platelet Volume 10.6 fL (7.4-10.4); Monocytes # 0.4 10^3/uL (0.2-0.9); Monocytes % 6.7 %; Neutrophils # 4.12 10^3/uL (1.8-7.7); Neutrophils % 71.2 %; Nucleated Red Blood Cells % 0 %; Platelet Count 152 10^3/cmm (157-399); Red Blood Count 3.43 10^6/uL (3.85-5.65); Red Cell Distribution Width 13.9 % (12.1-15.1); White Blood Count 5.79 10^3/uL (3.29-11.43)
[2023-08-17 04:10] LABS: Blood Urea Nitrogen 25 mg/dL (8-23); Calcium 8.8 mg/dL (8.5-10.5); Carbon Dioxide 24 mmol/L (22-29); Chloride 107 mmol/L (98-107); Creatinine Clr Calc Pharmacy 34.5311; Glucose 133 mg/dL (65-115); Osmolality Calculated 296 mOsm/kg (285-295); Sodium 140 mmol/L (136-145)
[2023-08-17 04:11] LABS: Anion Gap 13.4 (5-19); Potassium 4.4 mmol/L (3.5-5.1)
[2023-08-17] MEDS: acetaminophen 1,000 MG/100 ML PIGGYBACK 400 MG IV (04:43)
[2023-08-17] MEDS: oxyCODONE 5 mg IR Tab/Cap PO ×2 (07:57→14:58)
[2023-08-17] MEDS: estradiol 1 mg Tablet PO (07:57)
[2023-08-17] MEDS: dorzolamide 2% Op Soln 10 mL Btl 1 DROP EYE-BOTH (07:57)
[2023-08-17] MEDS: calcium carbonate 500 mg Chew Tablet 1000 MG PO (07:58)
[2023-08-17] MEDS: cholecalciferol (vitamin D3) 1,000 unit Tablet 1000 UNIT PO (07:58)
[2023-08-17] MEDS: meloxicam 7.5 mg tablet 15 MG PO (07:58)
[2023-08-17] MEDS: iron polysaccharide complex 150 mg Capsule PO (07:59)
[2023-08-17] MEDS: sennosides-docusate Tablet 2 TAB PO (07:59)
[2023-08-17] MEDS: sertraline 100 mg Tablet PO (07:59)
[2023-08-17] MEDS: levothyroxine 75 mcg Tablet PO (07:59)
[2023-08-17] MEDS: atorvastatin 40 mg Tablet PO (07:59)
[2023-08-17] MEDS: multivitamin therapeutic Tablet 1 TAB PO (07:59)
[2023-08-17] MEDS: hydroCHLOROthiazide 25 mg Tablet PO (07:59)
[2023-08-17] MEDS: ferrous sulfate EC 325 mg Tablet PO (07:59)
[2023-08-17] MEDS: potassium chloride ER 10 mEq Tablet PO (08:00)
[2023-08-17] MEDS: aspirin 325 mg EC Tablet PO (08:00)
[2023-08-17] MEDS: clopidogrel 75 mg Tablet PO (08:00)
[2023-08-17] MEDS: losartan 50 mg Tablet 100 MG PO (08:00)
[2023-08-17] MEDS: montelukast sodium 10 mg Tablet PO (08:00)
[2023-08-17] MEDS: carvedilol 12.5 mg Tablet PO (08:00)
[2023-08-17] MEDS: mupirocin oint 22 gm 1 APPLIC NASAL (08:01)
[2023-08-17] MEDS: chlorhexidine gluconate 0.12% Btl 473 mL 30 ML MUCOUS MEM ×2 (08:01→11:44)
[2023-08-17] MEDS: metoclopramide 5 mg/mL SDV 2 mL 10 MG IV (09:19)
[2023-08-17] MEDS: acetaminophen 500 mg Tablet 1000 MG PO (11:43)
[2023-08-17] MEDS: ondansetron 2 mg/ML SDV 2 mL 4 MG IVP (11:45)
--- NOTE | 2023-08-17 14:33 | P.DS_ITS ---
Discharge Providers Date of Admission: 08/16/23 11:09 Date of Discharge: August 17, 2023 Attending Provider at Admission: Tyra Diaz MD Attending Provider at Discharge: Tyra Diaz MD Primary Care Provider: Ching Varma DO Diagnoses at Discharge Discharge Diagnosis (1) Status post total left knee replacement not using cement: Status: Acute Permanent problem details: Date of procedure: August 16, 2023 Diagnosis: Primary osteoarthritis left knee Procedure done: Left total knee arthroplasty with Ramiro guidance Implants: The [place] total knee system with a size 4 triathlon beaded cruciate retaining femur left, a triathlon titanium tibial component size 3 beaded, a triathlon X3 tibial bearing CS insert size 3 X 12 mm and a beaded triathlon titanium asymmetric patella size 32 x 10 mm (2) Primary osteoarthritis of left knee: Status: Acute (3) Varus deformity, not elsewhere classified, left knee: Status: Acute Reason for Visit Reason for Visit: [id number] Brief History: This 83-year-old woman presents today for same-day surgery with plans for left total knee arthroplasty utilizing Ramiro guidance. The patient aggravated this left knee when she turned her body and fell while standing when she stepped up onto a platform at [employer]. Following that, she was unable to weight-bear. She had 5 of 10 pain on presentation to the office initially. X-rays demonstrated severe degenerative osteoarthritis with flexion deformity and varus deformity. The patient had previously undergone right total knee arthroplasty in August 2022 and did well following this. After discussion with the patient, she wished to proceed with left total knee arthroplasty. Questions were answered and consents were signed while the patient was in the office. Hospital Course Hospital Course This 83-year-old woman presented for same-day surgery in the form of left total knee arthroplasty without cement. This was well-tolerated. Postoperatively, she was admitted to the floor where she received physical therapy. She was felt safe for discharge to home, therefore, she was discharged home to follow-up with me in the office as scheduled. There is no evidence of DVT or other complication. Physical Exam Const: COMMON NORMALS: no acute distress, average body habitus, patient oriented x3 and alert GENERAL APPEARANCE: cooperative and comfortable ORIENTATION/CONSCIOUSNESS: Yes awake HENMT: COMMON NORMALS: normocephalic and atraumatic HEAD & SCALP: normocephalic and atraumatic Eye: GENERAL EYE: appearance normal, both eyes and all related structures Chest: COMMONS NORMALS: normal inspection of the chest Resp: COMMON NORMALS: normal respiratory effort EFFORT & INSPECTION: Yes able to speak in complete sentences and Yes symmetric chest movement Extremity: LEFT LOWER EXTREMITY: Yes knee joint (Dressing is dry and intact, large outer dressing is removed) Left knee: Yes inspection (Minimal to no swelling or bruising), Yes ROM (Not evaluated, but able to straight leg raise) and Yes neurovascular exam (Intact distally, no evidence of DVT) Neuro: COMMON NORMALS: patient oriented x3 SENSORIUM/ORIENTATION: Yes alert Psych: COMMON NORMALS: mental status grossly normal APPEARANCE: Yes grossly normal ATTITUDE: Yes calm and Yes engaged ATTENTION/CONCENTRATION: Yes attention grossly intact Skin: COMMON NORMALS: no rashes or lesions noted GENERAL SKIN EXAM: no rashes or lesions noted Urinary Catheter Management: Carrera: Cath Placed During This Visit: yes, but has since been removed by the nurse Reason for Continuing Indwelling Catheter: Decision to DC Catheter Urinary Catheter Date of Insertion: 08/16/23 Urinary Catheter Time of Insertion: 07:20 Date Urinary Catheter Removed: 08/17/23 Time Urinary Catheter Discontinued: 05:50 Discharge Data Studies Completed and Pending Completed Studies During Hospitalization Category Date Time Status XR knee LT 1-2V 43396 Routine Exams 08/16/23 10:35 Completed Laboratory Results WBC 5.79 10^3/uL (3.29-11.43) 08/17/23 03:17 RBC 3.43 10^6/uL (3.85-5.65) L 08/17/23 03:17 Hgb 10.30 g/dL (11.27-16.99) L 08/17/23 03:17 Hct 32.6 % (36-47) L 08/17/23 03:17 MCV 95.0 fl (85-98) 08/17/23 03:17 MCH 30.0 pg (27-33) 08/17/23 03:17 MCHC 31.6 g/dL (30-55) 08/17/23 03:17 RDW 13.9 % (12.1-15.1) 08/17/23 03:17 Plt Count 152 10^3/cmm (157-399) L 08/17/23 03:17 MPV 10.6 fL (7.4-10.4) H 08/17/23 03:17 Neut % (Auto) 71.2 % 08/17/23 03:17 Lymph % (Auto) 19.0 % 08/17/23 03:17 [place] % (Auto) 6.7 % 08/17/23 03:17 Eos % (Auto) 2.1 % 08/17/23 03:17 Baso % (Auto) 0.7 % 08/17/23 03:17 Neut # (Auto) 4.12 10^3/uL (1.8-7.7) 08/17/23 03:17 Lymph # (Auto) 1.1 10^3/uL (0.8-4.8) 08/17/23 03:17 [place] # (Auto) 0.4 10^3/uL (0.2-0.9) 08/17/23 03:17 Eos # (Auto) 0.1 10^3/uL (0.0-0.8) 08/17/23 03:17 Baso # (Auto) 0.0 10^3/uL (0.0-0.1) 08/17/23 03:17 Nucleated RBC % (auto) 0 % 08/17/23 03:17 Nucleated RBCs # 0.0 /100WBC 08/17/23 03:17 Sodium 140 mmol/L (136-145) 08/17/23 03:17 Potassium 4.4 mmol/L (3.5-5.1) 08/17/23 03:17 Chloride 107 mmol/L (98-107) 08/17/23 03:17 Carbon Dioxide 24 mmol/L (22-29) 08/17/23 03:17 Anion Gap 13.4 (5-19) 08/17/23 03:17 BUN 25 mg/dL (8-23) H 08/17/23 03:17 Creatinine 1.2 mg/dL (0.5-0.9) H 08/17/23 03:17 GFR Calculation Not Reportable 08/17/23 03:17 Glucose 133 mg/dL (65-115) H 08/17/23 03:17 Calculated Osmolality 296 mOsm/kg (285-295) H 08/17/23 03:17 Calcium 8.8 mg/dL (8.5-10.5) 08/17/23 03:17 Vitals Last Vital Signs Temp 98.2 F 08/17/23 11:23 Pulse 56 L 08/17/23 11:23 Resp 14 08/17/23 11:23 BP 128/68 08/17/23 11:23 Pulse Ox 94 08/17/23 11:23 O2 Del Method Room Air 08/17/23 11:23 O2 Flow Rate 6 08/16/23 10:22 Discharge Plan Discharge Patient Disposition: Home Health Service Condition: Stable Prescriptions: New acetaminophen 500 mg Tablet 1,000 mg PO Q8H 15 Days Qty: 0 0RF aspirin 325 mg Tablet,Delayed Release (Dr/Ec) 325 mg PO DAILY 30 Days Qty: 0 0RF Continued estradiol 1 mg tablet 1 mg PO DAILY@0800 losartan 100 mg tablet 100 mg PO DAILY@0800 sertraline [Zoloft] 100 mg tablet 100 mg PO DAILY@0800 levothyroxine 75 mcg capsule 75 mcg PO DAILY@0800 ferrous sulfate 250 mg (50 mg iron) tablet extended release 325 mg PO DAILY@0800 apple cider vinegar 500 mg tablet 500 mg PO DAILY dorzolamide 2 % drops 1 drp ophthalmic (eye) TID Rx Instructions: BOTH EYES (DME) Custome Insoles See Rx Instructions .Route .MEDSUPPLY Qty: 1 0RF Rx Instructions: As directed gabapentin 100 mg capsule 100 mg PO DAILY omega 8-nbd-xet-fish oil [Fish Oil] 300-1,000 mg capsule 1 cap PO DAILY meloxicam 15 mg tablet 15 mg PO DAILY Qty: 30 1RF Rx Instructions: Take 1 tablet by mouth daily carvedilol 12.5 mg tablet 12.5 mg PO BID 30 Days Qty: 60 5RF Rx Instructions: must administer with a meal/food ondansetron HCl 4 mg tablet 4 mg PO Q6H 7 Days Qty: 28 0RF latanoprost 0.005 % drops 1 drp ophthalmic (eye) QPM potassium chloride 10 mEq Tablet Extended Release 10 meq PO DAILY@0800 alprazolam 0.5 mg tablet 0.5 mg PO BEDTIME ascorbic acid (vitamin C) [Vitamin C] 500 mg Capsule, Extended Release 500 mg PO DAILY Qty: 0 hydrochlorothiazide 25 mg tablet 25 mg PO DAILY@0800 PreserVision AREDS-2 250-90-40-1 mg Capsule 1 tab PO BID Qty: 0 amlodipine 10 mg tablet 10 mg PO DAILY@0800 clopidogrel [Plavix] 75 mg tablet 75 mg PO DAILY Qty: 30 0RF atorvastatin [Lipitor] 40 mg tablet 40 mg PO DAILY Qty: 30 0RF montelukast [Singulair] 10 mg Tablet 10 mg PO DAILY meclizine 25 mg Tablet 25 mg PO TID PRN (Reason: Dizziness) Qty: 10 0RF Yupelri 175 mcg/3 mL Solution For Nebulization 175 mcg INHALATION DAILY Discharge Orders: Discharge Order (Routine); Ordered 08/17/23 Ordered By: Tyra Diaz Referrals: [facility] [Outside] Tyra Diaz MD [Physician] - 09/12/23 9:30 am Discharge Diet: Advance as tolerated and Usual diet Discharge Activity: Increase activity as tolerated, Limit activity as instructed, Use walker/crutches as instructed and As per PT/OT instructions Patient Instructions: Total Knee Replacement (GEN), Joint Replacement Stoplight, Opioid Safety Activity Restrictions/Additional Instructions: You may shower, but do not soak your knee in water. Weight-bear as tolerated. Range of motion, strengthening, and ambulation per physical therapy. Elevate and ice your left knee. Discharge Attestations Time Spent in Discharge Care*: greater than 30 min Specific Discharge Activities: educating patient, documenting/other paperwork and evaluating patient/reviewing data Status at Discharge: Cognitive status at discharge: cognitively intact , Behavioral status at discharge: cooperative , Quality Metrics Clinical Quality Measures [ No reported AMI, CVA or VTE this stay] Coding Level of Care Code Acute Code for Chg Fwd Diagnoses Status post total left knee replacement not using cement Z96.652 Primary osteoarthritis of left knee M17.12 Varus deformity, not elsewhere classified, left knee M21.162
--- NOTE | 2023-08-17 15:30 | PC.NURSE ---
Discharge instructions given to pt and family members. All questions answered. NO further questions or concerns voiced. Pt to private vehicle via wheelchair with all belongings.
== END 2023-08-17 15:43 | disposition home health service (06) ==
LOC: MEDSURG 11:10
PROVIDERS: Admitting Provider Specialist; PCP Family Medicine; Visit Provider Specialist
PROC: 8E0Y0CZ Robotic Assisted Procedure of Lower Extremity, Open Approach (ICD-10-PCS; CPT 27447; principal; 2023-08-16 07:00)
DX: M17.12 Unilateral primary osteoarthritis, left knee (principal); M25.762 Osteophyte, left knee; J44.9 Chronic obstructive pulmonary disease, unspecified; I10 Essential (primary) hypertension; Z86.73 Personal history of transient ischemic attack (TIA), and cerebral infarction without residual deficits; E03.9 Hypothyroidism, unspecified; Z87.891 Personal history of nicotine dependence
CPT/HCPCS: 20985; 27447; 36415; 51702; 73560; 80048; 85025; 97110; 97116; 97161; 97165; 97530; C1776; C9290; G0378; J0131; J0690; J2405; J2704; J2765; J2795; J3370; J3490; J7030; J8499; Q0162

== ENCOUNTER → 2023-09-12 09:33 | Outpatient (BNVA) | payer MEDICARE, MEDICAID, SELFPAY | PROVIDERS: PCP Family Medicine; Visit Provider Specialist | DX: Z96.653 Presence of artificial knee joint, bilateral (principal); Z47.1 Aftercare following joint replacement surgery | CPT/HCPCS: 73560; 73565; 99024 ==

== ENCOUNTER → 2024-01-02 13:12 | Outpatient (BNVA) | payer MEDICARE, MEDICAID, SELFPAY | PROVIDERS: PCP Family Medicine; Visit Provider Dermatology | DX: D48.5 Neoplasm of uncertain behavior of skin (principal); L82.1 Other seborrheic keratosis; L81.4 Other melanin hyperpigmentation; L72.0 Epidermal cyst | CPT/HCPCS: 11102; 99213 ==

== ENCOUNTER → 2024-01-15 10:07 | Outpatient (BNVA) | payer MEDICARE, MEDICAID, SELFPAY | PROVIDERS: PCP Family Medicine; Visit Provider Specialist | DX: Z96.652 Presence of left artificial knee joint (principal); M21.162 Varus deformity, not elsewhere classified, left knee | CPT/HCPCS: 73562; 99213 ==

== ENCOUNTER → 2024-01-17 13:20 | Outpatient (BNVA) | payer MEDICARE, MEDICAID, SELFPAY | PROVIDERS: PCP Family Medicine; Visit Provider Dermatology | DX: D04.62 Carcinoma in situ of skin of left upper limb, including shoulder (principal) | CPT/HCPCS: 11602; 13121 ==

== ENCOUNTER → 2024-06-10 10:04 | Outpatient (BNVA) | payer MEDICARE, MEDICAID, SELFPAY | PROVIDERS: PCP Family Medicine; Visit Provider Nurse Practitioner Family | DX: L81.4 Other melanin hyperpigmentation (principal); L72.0 Epidermal cyst; Z08 Encounter for follow-up examination after completed treatment for malignant neoplasm; Z85.828 Personal history of other malignant neoplasm of skin; D48.5 Neoplasm of uncertain behavior of skin; L57.0 Actinic keratosis | CPT/HCPCS: 11102; 17000; 99213 ==

== ENCOUNTER → 2024-07-16 11:00 | Outpatient (BNVA) | payer MEDICARE, MEDICAID, SELFPAY | PROVIDERS: PCP Family Medicine; Visit Provider Dermatology | DX: L72.0 Epidermal cyst (principal); L81.4 Other melanin hyperpigmentation; L82.1 Other seborrheic keratosis; Z08 Encounter for follow-up examination after completed treatment for malignant neoplasm; Z85.828 Personal history of other malignant neoplasm of skin; C44.722 Squamous cell carcinoma of skin of right lower limb, including hip | CPT/HCPCS: 17262; 99213 ==

== ENCOUNTER → 2024-10-11 12:02 | Outpatient (BNVA) | payer MEDICARE, MEDICAID, SELFPAY | PROVIDERS: PCP Family Medicine; Visit Provider Nurse Practitioner | DX: Z96.652 Presence of left artificial knee joint (principal); Z96.651 Presence of right artificial knee joint | CPT/HCPCS: 73560; 73565; 99214 ==

== ENCOUNTER → 2024-10-25 10:56 | Outpatient (BNVA) | payer MEDICARE, MEDICAID, SELFPAY | PROVIDERS: PCP Family Medicine; Visit Provider Nurse Practitioner Family | DX: S90.931A Unspecified superficial injury of right great toe, initial encounter (principal); X58.XXXA Exposure to other specified factors, initial encounter; L72.0 Epidermal cyst; L81.4 Other melanin hyperpigmentation; Z08 Encounter for follow-up examination after completed treatment for malignant neoplasm; Z85.828 Personal history of other malignant neoplasm of skin; Z18.39 Other retained organic fragments; L57.0 Actinic keratosis | CPT/HCPCS: 10120; 17000; 99213 ==

== ENCOUNTER → 2025-04-11 10:36 | Outpatient (BNVA) | payer MEDICARE, MEDICAID, SELFPAY | PROVIDERS: PCP Family Medicine; Visit Provider Dermatology | DX: L82.1 Other seborrheic keratosis (principal); L57.8 Other skin changes due to chronic exposure to nonionizing radiation; B07.8 Other viral warts; L57.0 Actinic keratosis | CPT/HCPCS: 17000; 17110; 99213 ==